=== PATIENT | female | born 1955 | race Caucasian/White ===

== ENCOUNTER 2018-01-19 01:55 | Emergency (ER) | payer MEDICARE, MEDICAID ==
[2018-01-19] MEDS ORDERED: HYDROmorphone 1 MG/ML Syringe IVPUSH ONE (02:33)
[2018-01-19] MEDS ORDERED: Sodium Chloride 0.9% 1,000 ML IV ONE (02:33)
[2018-01-19] MEDS ORDERED: Ondansetron 4 MG/2 ML SDV IV ONE (02:33)
--- NOTE | 2018-01-19 02:39 | EDM.PDOC ---
ED HPI GENERAL MEDICAL PROBLEM - General Chief Complaint: Abdominal Pain Stated Complaint: L SIDE AND BACK PAIN [id number] Time Seen by Provider: 01/19/18 02:21 Source of Information: Reports: Patient, RN, RN Notes Reviewed History Limitations: Reports: No Limitations - History of Present Illness INITIAL COMMENTS - FREE TEXT/NARRATIVE: Pt presents to the ER with c/o left flank/abdominal pain for the past 2 weeks. She states she is currently on Cipro for a UTI. She states she has been taking fluids well, but her appetite has been poor. She states she has been dry heaving for the past few days, but actually vomited twice this past evening. She admits to fever and chills, dizziness, and N/V. She denies diarrhea, chest pains, SOB. Patient states the pain is a 10/10. She states she has had several kidney stones in the past for which she has oxycodone at home for. She states this pain is different than the pain she has with a kidney stone. She states the pain has become so intense today that she is not able to bear it. Pt states frequency, urgency, and burning with urination have resolved since taking the antibiotics. Pt states she was seen in [place] last week and had xrays and CT done. She has signed a release of information for these records to be retrieved from [facility]. Onset: Gradual Location: Reports: Abdomen Quality: Reports: Sharp, Stabbing Severity: Severe Improves with: Reports: None Worsens with: Reports: None Associated Symptoms: Reports: Fever/Chills, Nausea/Vomiting Treatments MATERIALS SCIENTIST: Reports: Other Medication(s) Left Abdomen Pain Score (Numeric/FACES): 10 - Related Data Allergies Allergy/AdvReac Type Severity Reaction Status Date / Time acetaminophen [From Vicodin] Allergy Stomach Verified 01/19/18 02:03 Upset hydrocodone bitartrate Allergy Stomach Verified 01/19/18 02:03 [From Vicodin] Upset morphine Allergy Rash Verified 01/19/18 02:03 NSAIDS (Non-Steroidal Allergy Nausea Verified 01/19/18 02:03 Anti-Inflamma sulfamethoxazole Allergy Dizziness Verified 01/19/18 02:03 [From Bactrim] trimethoprim [From Bactrim] Allergy Dizziness Verified 01/19/18 02:03 Home Meds: Home Meds Albuterol [Ventolin HFA] 2 puff INH Q4H 05/28/15 [History] Fluticasone/Salmeterol [Advair Diskus 250-50] 1 puff INH BID 05/28/15 [History] Hydrochlorothiazide 1 tab PO DAILY 05/28/15 [History] Past Medical History HEENT History: Reports: Impaired Vision Cardiovascular History: Reports: High Cholesterol, Hypertension Respiratory History: Reports: COPD Genitourinary History: Reports: Renal Calculus DISABILITY SPECIALIST History: Reports: None Other Musculoskeletal History: degenerative joint disease Neurological History: Reports: None Psychiatric History: Reports: None Endocrine/Metabolic History: Reports: Hypothyroidism Hematologic History: Reports: None Immunologic History: Reports: None Oncologic (Cancer) History: Reports: None - Past Surgical History Other Cardiovascular Surgeries/Procedures: cardiac cath GI Surgical History: Reports: Appendectomy, Cholecystectomy Female Surgical History: Reports: Hysterectomy, Tubal Ligation Other Musculoskeletal Surgeries/Procedures:: R) knee surg, carpal tunnel, neck surg Social & Family History - Tobacco Use Smoking Status *Q: Never Smoker Second Hand Smoke Exposure: No - Caffeine Use Caffeine Use: Reports: Coffee, Soda - Recreational Drug Use Recreational Drug Use: No ED ROS GENERAL - Review of Systems Review Of Systems: ROS reveals no pertinent complaints other than HPI. ED EXAM, RENAL/ - Physical Exam Exam: See Below Exam Limited By: No Limitations General Appearance: Alert, WD/WN, Moderate Distress Eye Exam: Bilateral Eye: EOMI, Normal Inspection, PERRL Ears: Normal External Exam, Hearing Grossly Normal Nose: Normal Inspection Throat/Mouth: Normal Inspection, Normal Voice, No Airway Compromise Head: Atraumatic, Normocephalic Neck: Normal Inspection, Supple, Non-Tender, Full Range of Motion Respiratory/Chest: No Respiratory Distress, Lungs Clear, Normal Breath Sounds, No Accessory Muscle Use, Chest Non-Tender Cardiovascular: Normal Peripheral Pulses, Regular Rate, Rhythm, No Edema, No Gallop, No JVD, No Murmur, No Rub GI/Abdominal: Normal Bowel Sounds, Soft, No Abnormal Bruit, No Mass, Tender (Female) Exam: Deferred Rectal (Female) Exam: Deferred Back Exam: Normal Inspection, CVA Tenderness (L), Decreased Range of Motion Extremities: Normal Inspection, Normal Range of Motion, Non-Tender, No Pedal Edema, Normal Capillary Refill Neurological: Alert, Oriented, CN II-XII Intact, Normal Cognition, Normal Gait, Normal Reflexes, No Motor/Sensory Deficits Psychiatric: Normal Affect, Normal Mood Skin Exam: Warm, Dry, Intact, Normal Color, No Rash Lymphatic: No Adenopathy Course - Vital Signs Last Recorded V/S: Last Vital Signs Temp 97 F 01/19/18 01:58 Pulse 63 01/19/18 01:58 Resp 18 01/19/18 01:58 BP 172/86 H 01/19/18 01:58 Pulse Ox 97 01/19/18 01:58 - Orders/Labs/Meds Orders: Active Orders 24 hr Category Date Time Status Sodium Chloride 0.9% [Normal Saline] 1,000 ml Med 01/19/18 02:33 Active IV .BOLUS Medication Orders Sodium Chloride (Normal Saline) 1,000 mls @ 999 mls/hr IV .BOLUS ONE Stop: 01/19/18 03:33 Last Admin: 01/19/18 02:38 Dose: 999 mls/hr Labs: Laboratory Tests 01/19/18 01/19/18 01/19/18 Range/Units 02:15 02:15 02:30 WBC 13.4 H (5.0-10.0) 10^3/uL RBC 5.08 (4.2-5.4) 10^6/uL Hgb 14.9 (12.0-16.0) g/dL Hct 41.9 (37.0-47.0) % MCV 82.5 (80-100) fL MCH 29.3 (27.0-34.0) pg MCHC 35.6 H (33.0-35.0) g/dL Plt Count 245 (150-450) 10^3/uL Neut % (Auto) 69.9 (42.2-75.2) % Lymph % (Auto) 20.5 (20.5-50.1) % [place] % (Auto) 6.6 (2-8) % Eos % (Auto) 2.5 (1.0-3.0) % Baso % (Auto) 0.5 (0.0-1.0) % Sodium 134 L (135-145) mmol/L Potassium 3.9 (3.6-5.0) mmol/L Chloride 101 (101-111) mmol/L Carbon Dioxide 24.0 (21.0-31.0) mmol/L Anion Gap 12.9 BUN 14 (7-18) mg/dL Creatinine 1.1 (0.6-1.3) mg/dL Est Cr Clr Drug Dosing 45.20 mL/min Estimated GFR (MDRD) 50 BUN/Creatinine Ratio 12.72 Glucose 162 H (74-105) mg/dL Calcium 9.4 (8.4-10.2) mg/dl Total Bilirubin 0.9 (0.2-1.0) mg/dL AST 37 (10-42) IU/L ALT 30 (10-60) IU/L Alkaline Phosphatase 81 (42-121) IU/L Total Protein 7.8 (6.7-8.2) g/dl Albumin 4.3 (3.2-5.5) g/dl Globulin 3.5 Albumin/Globulin Ratio 1.23 Urine Color Yellow (YELLOW) Urine Appearance Turbid (CLEAR) Urine pH 6.5 (5.0-9.0) Ur Specific [place] 1.020 (1.005-1.030) Urine Protein 100 H (NEGATIVE) Urine Glucose (UA) Negative (NEGATIVE) Urine Ketones Negative (NEGATIVE) Urine Occult Blood Small H (NEGATIVE) Urine Nitrite Negative (NEGATIVE) Urine Bilirubin Negative (NEGATIVE) Urine Urobilinogen 0.2 (0.2-1.0) mg/dL Ur Leukocyte Esterase Negative (NEGATIVE) Urine RBC 0-5 /HPF Urine WBC 0-5 (0-5/HPF) /HPF Ur Epithelial Cells Many H /HPF Urine Bacteria Moderate H (0-FEW/HPF) /HPF Urine Mucus Moderate H /LPF Meds: Medications Generic Name Dose Route Start Last Admin Trade Name Roberto PRN Reason Stop Dose Admin Sodium Chloride 1,000 mls @ 999 mls/hr 01/19/18 02:33 01/19/18 02:38 Normal Saline IV 01/19/18 03:33 999 mls/hr .BOLUS ONE Administration Discontinued Medications Generic Name Dose Route Start Last Admin Trade Name Roberto PRN Reason Stop Dose Admin Hydromorphone HCl 1 mg 01/19/18 02:33 01/19/18 02:40 Dilaudid IVPUSH 01/19/18 02:34 1 mg ONETIME ONE Administration Ondansetron HCl 4 mg 01/19/18 02:33 01/19/18 02:39 Zofran IV 01/19/18 02:34 4 mg ONETIME ONE Administration - Re-Assessments/Exams Free Text/Narrative Re-Assessment/Exam: 01/19/18 03:18 Pt states the pain medications and fluids have "taken the edge off the pain". She states she can go home and rest. Pt was advised to call Urology at [facility] in [place] as soon as possible in the morning to be seen. Pt agrees and states understanding. 01/19/18 03:20 CT of abdomen/pelvis with contrast that was done at [facility] on 01/11/18 impression : Bilateral punctate renal calculi Dilated LEFT proximal collecting system and ureter but actually improved over the interval Fatty liver Colonic diverticulosis Old granulomatous disease exposure calcifications of the liver, spleen and LEFT basilar calcified nodule See rad report See also ER report from [facility] on 01/11/18 Departure - Departure Time of Disposition: 03:22 Disposition: Home, Self-Care 01 Condition: Fair Clinical Impression: Flank pain, Kidney stone on left side - Discharge Information Instructions: Renal Colic, [id number], Kidney Stones, [id number], Flank Pain, [id number] Forms: ED Department Discharge Additional Instructions: Follow up with Urology at [facility] in the morning Drink plenty of fluids - My Orders Last 24 Hours: My Active Orders 01/19/18 02:33 Sodium Chloride 0.9% [Normal Saline] 1,000 ml IV .BOLUS - Assessment/Plan Last 24 Hours: My Active Orders 01/19/18 02:33 Sodium Chloride 0.9% [Normal Saline] 1,000 ml IV .BOLUS
[2018-01-19] MEDS ORDERED: Ondansetron 4 MG Tab.DIS PO ONE (03:33)
[2018-01-19 03:46] VITALS: BP 182/67
== END 2018-01-19 03:43 | disposition home or self-care (01) ==
LOC: DL.ED 01:55
DX: N20.0 Calculus of kidney (principal); E78.00 Pure hypercholesterolemia, unspecified; I10 Essential (primary) hypertension; E03.9 Hypothyroidism, unspecified; Z88.1 Allergy status to other antibiotic agents; Z88.5 Allergy status to narcotic agent; Z88.2 Allergy status to sulfonamides; Z79.899 Other long term (current) drug therapy
CPT/HCPCS: 36415; 80053; 81001; 85025; 96361; 96374; 96375; 99284; A9270; J1170; J2405; J7030

== ENCOUNTER 2018-03-10 04:53 | Day surgery (SDC) | payer MEDICARE, MEDICAID ==
[2018-03-10] MEDS ORDERED: Midazolam 1 MG/ML 2 ML SDV IV ONE ×4 (04:54→06:42)
[2018-03-10] MEDS ORDERED: fentaNYL 100 MCG/2 ML SDV IV ONE ×3 (04:54→06:34)
[2018-03-10] MEDS ORDERED: Dextrose 5%-0.45% NaCl 1,000 ML IV SCH (06:00)
[2018-03-10] MEDS ORDERED: Sodium Chloride 0.9% 10 ML Syringe FLUSH PRN (06:00)
[2018-03-10] MEDS ORDERED: Midazolam 1 MG/ML 2 ML SDV ONE (06:11)
[2018-03-10] MEDS ORDERED: fentaNYL 100 MCG/2 ML SDV ONE (06:11)
--- NOTE | 2018-03-10 07:14 | OR ---
DATE: 03/10/2018 PROCEDURE: Total colonoscopy. INSTRUMENT USED: [id number]-H180AL Olympus video colonoscope. PREMEDICATIONS: Fentanyl 100 mcg intravenous, Versed 2.5 mg intravenous. Nasal O2 cannula. The procedure was done under pulse oximetry, BP recording, and conveyor monitor. INDICATION: The patient with increasing constipation and persistent left-sided lower abdominal pain, unexplained and not responsive to medical measures. Colonoscopic examination is done for detection of any polypoid lesions and removal, endoscopic hemostasis therapy if needed. DESCRIPTION OF PROCEDURE: Initial rectal exam was unremarkable. Rigid anoscopy showed small internal hemorrhoids without bleeding from them. The colonoscope was passed with ease. Few scattered diverticula were noted in the distal left colon along with some deformity. The scope was passed with ease up to the ileocecal area. Photographs were taken of the normal-appearing cecum identified by landmarks of appendiceal orifice and double-bulged ileocecal folds. No bleeding was noted from any of the visualized areas at the commencement of the examination. No stricture. No vascular ectasia. No large isolated ulcerations seen. No evidence of diffuse inflammatory bowel disease in the form of friability, contact bleeding, or ulcerations. No polyp or tumor mass identified. Probing the proximal sides of folds and flexures, using adequate distention and clearing of the stool material, withdrawal of the scope was made, cecum to rectum time over 6 minutes. No bleeding was noted from any of the visualized areas at the completion of examination. IMPRESSION: 1. Internal hemorrhoids. 2. Diverticulosis. The patient tolerated the procedure well. [facility] /[id number]
--- NOTE | 2018-03-10 08:53 | LETTER ---
03/10/2018 Anca Andrade NP [facility] [address] [place] [address] RE: JEROMEJUSTINA GHAZAL : 1955 Dear Ms. Andrade: Ms. Justina Canales had colonoscopic examination done this morning and she tolerated the procedure well. I herewith send a copy of the endoscopy note and photographs for your review. Thank you. Sincerely, [facility] /[id number]
[2018-03-10 10:31] VITALS: BP 171/75
== END 2018-03-10 08:54 | disposition home or self-care (01) ==
LOC: DL.ENDO 04:53
PROVIDERS: ATTEND Internal Medicine Gastroenterology
DX: K57.30 Diverticulosis of large intestine without perforation or abscess without bleeding (principal); K64.8 Other hemorrhoids; I10 Essential (primary) hypertension; N20.0 Calculus of kidney; E78.5 Hyperlipidemia, unspecified; E66.09 Other obesity due to excess calories; Z88.2 Allergy status to sulfonamides; Z88.5 Allergy status to narcotic agent; Z88.6 Allergy status to analgesic agent; Z90.49 Acquired absence of other specified parts of digestive tract; Z90.712 Acquired absence of cervix with remaining uterus; Z98.51 Tubal ligation status; Z98.890 Other specified postprocedural states; Z87.440 Personal history of urinary (tract) infections
CPT/HCPCS: 45378; J2250; J3010; J7042

== ENCOUNTER 2018-03-11 14:19 | Emergency (ER) | payer MEDICARE, MEDICAID ==
[2018-03-11 14:49] VITALS: BP 162/88
--- NOTE | 2018-03-11 15:05 | EDM.PDOC ---
ED HPI GENERAL MEDICAL PROBLEM - General Chief Complaint: Abdominal Pain Stated Complaint: LEFT SIDE PAIN Time Seen by Provider: 03/11/18 14:58 Source of Information: Reports: Patient History Limitations: Reports: No Limitations - History of Present Illness INITIAL COMMENTS - FREE TEXT/NARRATIVE: Cortney present to the ED one day post-colonoscopy with 2 month history of flank pain. Colonoscopy was without biopsy, positive for mild diverticulitis. Patient had no complications with anesthesia, passing gas and had a bowel movement this morning. The flank pain is sharp and originates in her left costovertebral angle and wraps around to her left upper abdomen. The patient was woken by the pain at 0300 this morning. Pain described as " worse than ever, and didn't improve with movement like it usually does." Patient states this pain is different in location than previous kidney stones. Patient has history of kidney stones, with a stent removed from her left ureter one month ago. Allergic to morphine, vicoden, NSAIDs, and sulfa antibiotics. ROS negative for fever, cough, hematuria, and hematochezia. ROS positive for nausea. Onset: Today Onset Date: 03/11/18 Onset Time: 03:00 Duration: Hour(s): Location: Reports: Abdomen, Back Quality: Reports: Sharp Severity: Severe Improves with: Reports: None Worsens with: Reports: None Associated Symptoms: Reports: Nausea/Vomiting. Denies: Chest Pain, Cough, Shortness of Breath Left Lower Flank Pain Score (Numeric/FACES): 9 - Related Data Allergies Allergy/AdvReac Type Severity Reaction Status Date / Time morphine Allergy Rash Verified 03/11/18 14:27 sulfamethoxazole Allergy Dizziness Verified 03/11/18 14:27 [From Bactrim] trimethoprim [From Bactrim] Allergy Dizziness Verified 03/11/18 14:27 hydrocodone bitartrate AdvReac Stomach Verified 03/11/18 14:27 [From Vicodin] Upset NSAIDS (Non-Steroidal AdvReac Nausea Verified 03/11/18 14:27 Anti-Inflamma Home Meds: Home Meds Albuterol [Ventolin HFA] 2 puff INH Q4H PRN 05/28/15 [History] Fluticasone/Salmeterol [Advair Diskus 250-50] 1 puff INH BID 05/28/15 [History] Hydrochlorothiazide 25 mg PO DAILY PRN 05/28/15 [History] Acetaminophen 1,000 mg PO Q6H PRN 03/09/18 [History] Cholecalciferol (Vitamin D3) [Vitamin D3] 2,000 units PO DAILY 03/09/18 [History ] Ipratropium/Albuterol Sulfate [IJD: DuoNeb 3.0-0.5 MG/3 ML] 1 vial INH Q4H PRN 03/09/18 [History] Levothyroxine 225 mcg PO DAILY 03/09/18 [History] Ondansetron [Zofran ODT] 4 mg PO Q8H PRN 03/09/18 [History] oxyCODONE 5 mg PO Q6H PRN 03/09/18 [History] Past Medical History HEENT History: Reports: Impaired Vision, Other (See Below) Other HEENT History: UPPER DENTURE, BOTTOM PARTIAL DENTURE Cardiovascular History: Reports: High Cholesterol, Hypertension Respiratory History: Reports: COPD, Intubation, Previous, Sleep Apnea, SOB Gastrointestinal History: Reports: Diverticulosis Genitourinary History: Reports: Chronic Renal Insuffiency, Hydronephrosis, Renal Calculus, UTI, Recurrent 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 BILAT CARPAL TUNNEL SYNDROME Neurological History: Reports: Concussion Psychiatric History: Reports: Mood Swings Endocrine/Metabolic History: Reports: Hypothyroidism, Obesity/BMI 30+, Osteopenia, Vitamin D Deficiency Hematologic History: Reports: None Immunologic History: Reports: None Oncologic (Cancer) History: Reports: None Dermatologic History: Reports: None - Infectious Disease History Infectious Disease History: Reports: Chicken Pox, Measles, Mumps - Past Surgical History Cardiovascular Surgical History: Reports: Other (See Below) Other Cardiovascular Surgeries/Procedures: cardiac cath - PATIENT DENIES CARDIAC CATH 03/09/18. ELECTROCARDIOGRAM Respiratory Surgical History: Reports: None GI Surgical History: Reports: Appendectomy, Cholecystectomy, Colonoscopy, Hernia , Inguinal, Other (See Below) Other GI Surgeries/Procedures: DENIES INGUINAL HERNIA REPAIR 03/09/18 Female Surgical History: Reports: Hysterectomy, Lithotripsy/ESWL, Tubal Ligation, Ureteral Stent Endocrine Surgical History: Reports: None Neurological Surgical History: Reports: C-Spine Musculoskeletal Surgical History: Reports: Arthroscopic Knee, Carpal Tunnel, Joint Replacement Other Musculoskeletal Surgeries/Procedures:: TOTAL R) knee surg, RIGHT & LEFT ( DENIES LEFT CARPAL TUNNEL RELEASE 03/09/18)carpal tunnel, neck surg Oncologic Surgical History: Reports: None Dermatological Surgical History: Reports: None Social & Family History - Tobacco Use Smoking Status *Q: Never Smoker Used Tobacco, but Quit: No Second Hand Smoke Exposure: No - Caffeine Use Caffeine Use: Reports: Coffee Other Caffeine Use: 1 CUP DAILY - Recreational Drug Use Recreational Drug Use: No Drug Use in Last 12 Months: No ED ROS GENERAL - Review of Systems Review Of Systems: See Below Constitutional: Denies: Fever, Weakness HEENT: Reports: No Symptoms Respiratory: Reports: Shortness of Breath (Chronic, prior to flank pain ). Denies: Cough Cardiovascular: Denies: Chest Pain, Lightheadedness, Palpitations GI/Abdominal: Reports: Abdominal Pain, Flatus. Denies: Bloody Stool, Diarrhea, Hematochezia, Vomiting : Reports: Flank Pain, Pain. Denies: Hematuria Musculoskeletal: Reports: No Symptoms Skin: Reports: No Symptoms ED EXAM, GI/ABD - Physical Exam Exam: See Below Text/Narrative:: Body habitus limiting abdominal examination General Appearance: Alert, Moderate Distress, Obese Eyes: Bilateral: Normal Appearance, EOMI Ears: Normal External Exam Nose: Normal Inspection Throat/Mouth: Normal Inspection, Normal Voice, No Airway Compromise Head: Atraumatic, Normocephalic Respiratory/Chest: No Respiratory Distress, Lungs Clear, Normal Breath Sounds, No Accessory Muscle Use Cardiovascular: Normal Peripheral Pulses, Regular Rate, Rhythm, No Murmur GI/Abdominal Exam: Soft, Distended, Other (Patient visibly uncomfortable with palpation of upper left quadrant. Tympanic to percussion ) Back Exam: CVA Tenderness (L) (palpation, no percussion ) Extremities: Normal Inspection, Normal Capillary Refill Neurological: Alert, Oriented, CN II-XII Intact, Normal Cognition, Normal Gait Psychiatric: Normal Affect, Normal Mood Skin Exam: Warm, Dry Course - Vital Signs Last Recorded V/S: Last Vital Signs Temp 36.6 C 03/11/18 14:41 Pulse 67 03/11/18 14:41 Resp 20 03/11/18 14:41 BP 162/88 H 03/11/18 14:41 Pulse Ox 97 03/11/18 14:41 - Orders/Labs/Meds Orders: Active Orders 24 hr Category Date Time Status Ready for Discharge [RC] PER UNIT ROUTINE Care 03/11/18 16:07 Active UA W/MICROSCOPIC [URIN] Stat Lab 03/11/18 14:54 Ordered Labs: Laboratory Tests 03/11/18 03/11/18 03/11/18 Range/Units 14:54 15:04 15:04 WBC 11.9 H (5.0-10.0) 10^3/uL RBC 4.63 (4.2-5.4) 10^6/uL Hgb 13.4 D (12.0-16.0) g/dL Hct 39.4 (37.0-47.0) % MCV 85.1 (80-100) fL MCH 28.9 (27.0-34.0) pg MCHC 34.0 (33.0-35.0) g/dL Plt Count 261 (150-450) 10^3/uL Neut % (Auto) 59.7 (42.2-75.2) % Lymph % (Auto) 27.4 (20.5-50.1) % [place] % (Auto) 8.3 H (2-8) % Eos % (Auto) 4.0 H (1.0-3.0) % Baso % (Auto) 0.6 (0.0-1.0) % Sodium 138 (135-145) mmol/L Potassium 3.3 L (3.6-5.0) mmol/L Chloride 101 (101-111) mmol/L Carbon Dioxide 28.0 (21.0-31.0) mmol/L Anion Gap 12.3 BUN 17 (7-18) mg/dL Creatinine 1.4 H (0.6-1.3) mg/dL Est Cr Clr Drug Dosing TNP Estimated GFR (MDRD) 38 BUN/Creatinine Ratio 12.14 Glucose 124 H (74-105) mg/dL Calcium 9.6 (8.4-10.2) mg/dl Total Bilirubin 0.8 (0.2-1.0) mg/dL AST 28 (10-42) IU/L ALT 26 (10-60) IU/L Alkaline Phosphatase 75 (42-121) IU/L Total Protein 7.7 (6.7-8.2) g/dl Albumin 4.0 (3.2-5.5) g/dl Globulin 3.7 Albumin/Globulin Ratio 1.08 Urine Color Yellow (YELLOW) Urine Appearance Clear (CLEAR) Urine pH 6.0 (5.0-9.0) Ur Specific [place] 1.025 (1.005-1.030) Urine Protein 100 H (NEGATIVE) Urine Glucose (UA) Negative (NEGATIVE) Urine Ketones Trace H (NEGATIVE) Urine Occult Blood Trace-lysed H (NEGATIVE) Urine Nitrite Negative (NEGATIVE) Urine Bilirubin Negative (NEGATIVE) Urine Urobilinogen 0.2 (0.2-1.0) mg/dL Ur Leukocyte Esterase Negative (NEGATIVE) Urine RBC 5-10 H /HPF Urine WBC 10-20 H (0-5/HPF) /HPF Ur Epithelial Cells Many H /HPF Calcium Oxalate Crystal Moderate H /HPF Urine Bacteria Few (0-FEW/HPF) /HPF Urine Mucus Few H /LPF - Radiology Interpretation Free Text/Narrative:: See Radiology Report: Isolated tiny, incompletely obstructing distal left uretolith. CT Results Date: 03/11/18 Departure - Departure Time of Disposition: 16:01 Disposition: Home, Self-Care 01 Condition: Good Clinical Impression: Kidney stone on left side - Discharge Information Instructions: Kidney Stones, [id number] Forms: ED Department Discharge Additional Instructions: Flomax 0.4 mg daily until kidney stone passes. 10 day supply prescribed Oxycodone 5mg/325mg every 4 hours as needed for pain. Follow up with your Urologist See your primary care provider if you develop blood in urine or fever and chills. - Problem List & Annotations (1) Kidney stone on left side SNOMED Code(s): 74929089 Code(s): N20.0 - CALCULUS OF KIDNEY Status: Acute (2) Flank pain SNOMED Code(s): 192153859 Code(s): R10.9 - UNSPECIFIED ABDOMINAL PAIN Status: Acute - Problem List Review Problem List Initiated/Reviewed/Updated: Yes
[2018-03-11 15:31] LABS: CHLORIDE,CL 101 mmol/L (101-111); SODIUM,NA 138 mmol/L (135-145)
--- NOTE | 2018-03-11 15:51 | CT ---
Clinical history: 62-year-old [place] ([place]) with history of "kidney stones" who had left urete ral stent removed one month ago and yesterday had a colonoscopy procedure ("diverticulosis"). Patient in emergency department now with severe left flank pain and hematuria. Scan technique: Volume acquisition of data emergency unenhanced CT scan abdomen and pelvis obtained w hile the patient was lying supine on the Siemens multi slice scanner [place], [place]. All data archived in the PACS system for storage, reformatting axial/sagittal/terry l planes and study. Interpretation: 1. Surgical clips gallbladder fossa right upper quadrant. Scattered tiny punctate calcifications in t he liver and spleen. No intrahepatic mass lesion or abnormal dilatation of intra/extrahepatic biliary ducts. 2. Multiple punctate calcifications calyces all poles of the left kidney (isolated calcification uppe r pole calyx right kidney). 3.*Isolated tiny (1 mm) intraluminal calcification distal left ureter with subtle dilatation of the p roximal ipsilateral ureter and renal pelvis. 4. Diverticula scattered in the colon without signs of pericolonic inflammatory "dirty" peritoneal fa t, abscess or bowel perforation. 5. No pelvic or abdominal mass lesion, retroperitoneal lymphadenopathy, signs of mechanical bowel obs truction, ascites or free air. 6. Normal caliber aortoiliac vessels. No aneurysm or dissection. Old compression fracture T12 vertebr a. L5-S1 disc disease. 7. Normal cardiac silhouette. Lung bases clear. Cholecystectomy. Stomach, pancreas and adrenal glands unremarkable. CONCLUSION: Isolated tiny, incompletely obstructing, distal left ureterolith.
== END 2018-03-11 16:29 | disposition home or self-care (01) ==
LOC: DL.ED 14:19
DX: N20.2 Calculus of kidney with calculus of ureter (principal); I12.9 Hypertensive chronic kidney disease with stage 1 through stage 4 chronic kidney disease, or unspecified chronic kidney disease; N18.9 Chronic kidney disease, unspecified; E03.9 Hypothyroidism, unspecified; E66.9 Obesity, unspecified; Z88.5 Allergy status to narcotic agent; Z88.8 Allergy status to other drugs, medicaments and biological substances; Z88.2 Allergy status to sulfonamides; Z79.899 Other long term (current) drug therapy
CPT/HCPCS: 36415; 74176; 80053; 81001; 85025; 99284

== ENCOUNTER 2018-03-27 13:40 | Emergency (ER) | payer MEDICARE, MEDICAID ==
[2018-03-27 13:57] VITALS: BP 164/84
--- NOTE | 2018-03-27 13:58 | EDM.PDOC ---
ED HPI GENERAL MEDICAL PROBLEM - General Chief Complaint: Lower Extremity Injury/Pain Stated Complaint: LEG PAIN [id number] Time Seen by Provider: 03/27/18 13:57 Source of Information: Reports: Patient, RN, RN Notes Reviewed History Limitations: Reports: No Limitations - History of Present Illness INITIAL COMMENTS - FREE TEXT/NARRATIVE: Pt presents to the ER with c/o pain and bruising that suddenly occurred this afternoon. She states she was out feeding her baby calf in her house slippers. When she returned to the house, the top of her left foot had a bruise Onset: Today, Sudden Location: Reports: Lower Extremity, Left Left Feet Pain Score (Numeric/FACES): 6 - Related Data Allergies Allergy/AdvReac Type Severity Reaction Status Date / Time morphine Allergy Rash Verified 03/27/18 13:56 sulfamethoxazole Allergy Dizziness Verified 03/27/18 13:56 [From Bactrim] trimethoprim [From Bactrim] Allergy Dizziness Verified 03/27/18 13:56 hydrocodone bitartrate AdvReac Stomach Verified 03/27/18 13:56 [From Vicodin] Upset NSAIDS (Non-Steroidal AdvReac Nausea Verified 03/27/18 13:56 Anti-Inflamma Home Meds: Home Meds Albuterol [Ventolin HFA] 2 puff INH Q4H PRN 05/28/15 [History] Fluticasone/Salmeterol [Advair Diskus 250-50] 1 puff INH BID 05/28/15 [History] Hydrochlorothiazide 25 mg PO DAILY PRN 05/28/15 [History] Acetaminophen 1,000 mg PO Q6H PRN 03/09/18 [History] Cholecalciferol (Vitamin D3) [Vitamin D3] 2,000 units PO DAILY 03/09/18 [History ] Ipratropium/Albuterol Sulfate [IJD: DuoNeb 3.0-0.5 MG/3 ML] 1 vial INH Q4H PRN 03/09/18 [History] Levothyroxine 225 mcg PO DAILY 03/09/18 [History] Ondansetron [Zofran ODT] 4 mg PO Q8H PRN 03/09/18 [History] oxyCODONE 5 mg PO Q6H PRN 03/09/18 [History] Past Medical History HEENT History: Reports: Impaired Vision, Other (See Below) Other HEENT History: UPPER DENTURE, BOTTOM PARTIAL DENTURE Cardiovascular History: Reports: High Cholesterol, Hypertension Respiratory History: Reports: COPD, Intubation, Previous, Sleep Apnea, SOB Gastrointestinal History: Reports: Diverticulosis Genitourinary History: Reports: Chronic Renal Insuffiency, Hydronephrosis, Renal Calculus, UTI, 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 BILAT CARPAL TUNNEL SYNDROME Neurological History: Reports: Concussion Psychiatric History: Reports: Mood Swings Endocrine/Metabolic History: Reports: Hypothyroidism, Obesity/BMI 30+, Osteopenia, Vitamin D Deficiency Hematologic History: Reports: None Immunologic History: Reports: None Oncologic (Cancer) History: Reports: None Dermatologic History: Reports: None - Infectious Disease History Infectious Disease History: Reports: Chicken Pox, Measles, Mumps - Past Surgical History Cardiovascular Surgical History: Reports: Other (See Below) Other Cardiovascular Surgeries/Procedures: cardiac cath - PATIENT DENIES CARDIAC CATH 03/09/18. ELECTROCARDIOGRAM Respiratory Surgical History: Reports: None GI Surgical History: Reports: Appendectomy, Cholecystectomy, Colonoscopy, Hernia , Inguinal, Other (See Below) Other GI Surgeries/Procedures: DENIES INGUINAL HERNIA REPAIR 03/09/18 Female Surgical History: Reports: Hysterectomy, Lithotripsy/ESWL, Tubal Ligation, Ureteral Stent Endocrine Surgical History: Reports: None Neurological Surgical History: Reports: C-Spine Musculoskeletal Surgical History: Reports: Arthroscopic Knee, Carpal Tunnel, Joint Replacement Other Musculoskeletal Surgeries/Procedures:: TOTAL R) knee surg, RIGHT & LEFT ( DENIES LEFT CARPAL TUNNEL RELEASE 03/09/18)carpal tunnel, neck surg Oncologic Surgical History: Reports: None Dermatological Surgical History: Reports: None Social & Family History - Tobacco Use Smoking Status *Q: Never Smoker Used Tobacco, but Quit: No Second Hand Smoke Exposure: No - Caffeine Use Caffeine Use: Reports: Coffee Other Caffeine Use: 1 CUP DAILY - Recreational Drug Use Recreational Drug Use: No Drug Use in Last 12 Months: No Review of Systems - Review of Systems Review Of Systems: ROS reveals no pertinent complaints other than HPI. ED EXAM, GENERAL - Physical Exam Exam: See Below Exam Limited By: No Limitations General Appearance: Alert, WD/WN, Mild Distress Eye Exam: Bilateral Eye: EOMI, Normal Inspection Ears: Normal External Exam, Hearing Grossly Normal Nose: Normal Inspection Throat/Mouth: Normal Inspection, Normal Voice, No Airway Compromise Head: Atraumatic, Normocephalic Neck: Normal Inspection Respiratory/Chest: No Respiratory Distress, Lungs Clear, Normal Breath Sounds, No Accessory Muscle Use Cardiovascular: Normal Peripheral Pulses, Regular Rate, Rhythm, No Gallop, No JVD, No Murmur, No Rub Peripheral Pulses: 2+: Radial (L), Radial (R), Dorsalis Pedis (L), Dorsalis Pedis (R) GI/Abdominal: Normal Bowel Sounds, Soft, Non-Tender (Female) Exam: Deferred Rectal (Female) Exam: Deferred Back Exam: Normal Inspection, Full Range of Motion Extremities: Pedal Edema (+1, [id number] eccymosis at the base of the 4th toe on the left foot) Neurological: Alert, Oriented, Normal Cognition, Normal Gait, Normal Reflexes, No Motor/Sensory Deficits Psychiatric: Normal Affect, Normal Mood Skin Exam: Warm, Dry, Intact, Normal Color, No Rash, Ecchymosis (left foot) Lymphatic: No Adenopathy Course - Vital Signs Last Recorded V/S: Last Vital Signs Temp 96.2 F 03/27/18 13:51 Pulse 73 03/27/18 13:51 Resp 20 03/27/18 13:51 BP 164/84 H 03/27/18 13:51 Pulse Ox 97 03/27/18 13:51 - Radiology Interpretation Free Text/Narrative:: Left foot xray: Normal left foot x-rays Incidental note is made of a prominent heel spur See rad report Departure - Departure Time of Disposition: 14:30 Disposition: Home, Self-Care 01 Condition: Fair Clinical Impression: Rupture of blood vessel Contusion Qualifiers: Encounter type: initial encounter Contusion area: foot Laterality: left Qualified Code(s): S90.32XA - Contusion of left foot, initial encounter - Discharge Information Instructions: Contusion, [id number] Forms: ED Department Discharge Additional Instructions: May ice and elevate as tolerated Follow up with your primary care facility as needed May use Tylenol as directed for pain.
== END 2018-03-27 14:48 | disposition home or self-care (01) ==
LOC: DL.ED 13:40
DX: S90.32XA Contusion of left foot, initial encounter (principal); I12.9 Hypertensive chronic kidney disease with stage 1 through stage 4 chronic kidney disease, or unspecified chronic kidney disease; E78.00 Pure hypercholesterolemia, unspecified; N18.9 Chronic kidney disease, unspecified; E03.9 Hypothyroidism, unspecified; Z88.5 Allergy status to narcotic agent; Z88.1 Allergy status to other antibiotic agents; Z88.8 Allergy status to other drugs, medicaments and biological substances; Z79.899 Other long term (current) drug therapy; X58.XXXA Exposure to other specified factors, initial encounter
CPT/HCPCS: 73630-LT; 99282; 99283

== ENCOUNTER 2019-01-22 10:29 | Emergency (ER) | payer MEDICARE, MEDICAID ==
[2019-01-22 10:40] VITALS: BP 172/97
--- NOTE | 2019-01-22 11:03 | EDM.PDOC ---
ED HPI GENERAL MEDICAL PROBLEM - General Chief Complaint: Back Pain or Injury Stated Complaint: BACK PAIN GOING TO BACK AND LEFT SIDE Time Seen by Provider: 01/22/19 10:45 Source of Information: Reports: Patient History Limitations: Reports: No Limitations - History of Present Illness INITIAL COMMENTS - FREE TEXT/NARRATIVE: This 63 yo female patient reports to the ED with left side pain that seems to be going up into her left shoulder. The patient reports she has been having left side pain for the past 4 months, but in the past 4 days her pain has gotten worse. The patient reports she has a kidney stone in the left side and has been seen by Dr. Thomas for the kidney stone. The patient reports she has been on Toradol and Flomax in the past. The patient reports she does take Flomax at nights. The patient reports she took 2 Aleve last night with some relief. The patient reports her pain gets worse when she lays on her left side or back. The patient denies any recent trauma, falls or injuries. The patient denies lifting or moving anything heavy. The patient has not been into her primary care facility for evaluation or treatment. The patient also reports she has pain "shooting" down her left leg. The patient also reports she has not been having daily bowel movements, but did have one this morning that was normal. 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 (Took Aleve last night despite an allergy to NSAIDS) Left Pain Score (Numeric/FACES): 9 - Related Data Allergies Allergy/AdvReac Type Severity Reaction Status Date / Time morphine Allergy Rash Verified 01/22/19 10:40 sulfamethoxazole Allergy Dizziness Verified 01/22/19 10:40 [From Bactrim] trimethoprim [From Bactrim] Allergy Dizziness Verified 01/22/19 10:40 hydrocodone bitartrate AdvReac Stomach Verified 01/22/19 10:40 [From Vicodin] Upset NSAIDS (Non-Steroidal AdvReac Nausea Verified 01/22/19 10:40 Anti-Inflamma Home Meds: Home Meds Albuterol [Ventolin HFA] 2 puff INH Q4H PRN 05/28/15 [History] Fluticasone/Salmeterol [Advair Diskus 250-50] 1 puff INH BID 05/28/15 [History] hydroCHLOROthiazide [Hydrochlorothiazide] 25 mg PO DAILY PRN 05/28/15 [History] Acetaminophen 1,000 mg PO Q6H PRN 03/09/18 [History] Cholecalciferol (Vitamin D3) [Vitamin D3] 2,000 units PO DAILY 03/09/18 [History ] Ipratropium/Albuterol Sulfate [IJD: DuoNeb 3.0-0.5 MG/3 ML] 1 vial INH Q4H PRN 03/09/18 [History] Levothyroxine 225 mcg PO DAILY 03/09/18 [History] Ondansetron [Zofran ODT] 4 mg PO Q8H PRN 03/09/18 [History] oxyCODONE 5 mg PO Q6H PRN 03/09/18 [History] Past Medical History HEENT History: Reports: Impaired Vision, Other (See Below) Other HEENT History: UPPER DENTURE, BOTTOM PARTIAL DENTURE Cardiovascular History: Reports: High Cholesterol, Hypertension Respiratory History: Reports: COPD, Intubation, Previous, Sleep Apnea, SOB Gastrointestinal History: Reports: Diverticulosis Genitourinary History: Reports: Chronic Renal Insuffiency, Hydronephrosis, Renal Calculus, UTI, 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 BILAT CARPAL TUNNEL SYNDROME Neurological History: Reports: Concussion Psychiatric History: Reports: Mood Swings Endocrine/Metabolic History: Reports: Hypothyroidism, Obesity/BMI 30+, Osteopenia, Vitamin D Deficiency Hematologic History: Reports: None Immunologic History: Reports: None Oncologic (Cancer) History: Reports: None Dermatologic History: Reports: None - Infectious Disease History Infectious Disease History: Reports: Chicken Pox, Measles, Mumps - Past Surgical History Cardiovascular Surgical History: Reports: Other (See Below) Other Cardiovascular Surgeries/Procedures: cardiac cath - PATIENT DENIES CARDIAC CATH 03/09/18. ELECTROCARDIOGRAM Respiratory Surgical History: Reports: None GI Surgical History: Reports: Appendectomy, Cholecystectomy, Colonoscopy, Hernia , Inguinal, Other (See Below) Other GI Surgeries/Procedures: DENIES INGUINAL HERNIA REPAIR 03/09/18 Female Surgical History: Reports: Hysterectomy, Lithotripsy/ESWL, Tubal Ligation, Ureteral Stent Endocrine Surgical History: Reports: None Neurological Surgical History: Reports: C-Spine Musculoskeletal Surgical History: Reports: Arthroscopic Knee, Carpal Tunnel, Joint Replacement Other Musculoskeletal Surgeries/Procedures:: TOTAL R) knee surg, RIGHT & LEFT ( DENIES LEFT CARPAL TUNNEL RELEASE 03/09/18)carpal tunnel, neck surg Oncologic Surgical History: Reports: None Dermatological Surgical History: Reports: None Social & Family History - Family History Family Medical History: Noncontributory - Tobacco Use Smoking Status *Q: Never Smoker Second Hand Smoke Exposure: No - Caffeine Use Caffeine Use: Reports: Coffee Other Caffeine Use: 1 CUP DAILY - Recreational Drug Use Recreational Drug Use: No ED ROS GENERAL - Review of Systems Review Of Systems: ROS reveals no pertinent complaints other than HPI. ED EXAM,LOWER BACK PAIN/INJURY - Physical Exam Exam: See Below Exam Limited By: No Limitations General Appearance: Alert, WD/WN, Mild Distress, Obese (morbid obesity ) Eye Exam: Bilateral Eye: EOMI, Normal Inspection, PERRL Ears: Normal External Exam, Normal Canal, Hearing Grossly Normal, Normal TMs Nose: Normal Inspection, Normal Mucosa, No Blood Throat/Mouth: Normal Inspection, Normal Lips, Normal Teeth, Normal Gums, Normal Oropharynx, Normal Voice, No Airway Compromise Head: Atraumatic, Normocephalic Neck: Normal Inspection, Supple, Non-Tender, Full Range of Motion Respiratory/Chest: No Respiratory Distress, Lungs Clear, Normal Breath Sounds, No Accessory Muscle Use, Chest Non-Tender Cardiovascular: Normal Peripheral Pulses, Regular Rate, Rhythm, No Edema, No Gallop, No JVD, No Murmur, No Rub GI/Abdominal: Normal Bowel Sounds, Soft, Tender (tenderness to left side of abdomen ), Other (obese) (Female) Exam: Deferred Rectal (Female) Exam: Deferred Back Exam: CVA Tenderness (L) Extremities: Normal Inspection, Normal Range of Motion, Non-Tender, No Pedal Edema, Normal Capillary Refill Neurological: Alert, Normal Mood/Affect, CN II-XII Intact, Oriented x 3 Psychiatric: Depressed Mood, Flat Affect Skin Exam: Warm, Dry, Intact, Normal Color, No Rash Lymphatic: No Adenopathy Course - Vital Signs Last Recorded V/S: Last Vital Signs Temp 36.7 C 01/22/19 10:33 Pulse 67 01/22/19 10:33 Resp 20 01/22/19 10:33 BP 172/97 H 01/22/19 10:33 Pulse Ox 97 01/22/19 10:33 - Orders/Labs/Meds Orders: Active Orders 24 hr Category Date Time Status CULTURE URINE [RM] Urgent Lab 01/22/19 10:32 Received Labs: Laboratory Tests 01/22/19 01/22/19 01/22/19 Range/Units 10:32 10:56 10:56 WBC 12.0 H (5.0-10.0) 10^3/uL RBC 5.06 (4.2-5.4) 10^6/uL Hgb 14.6 (12.0-16.0) g/dL Hct 42.0 (37.0-47.0) % MCV 83.0 (80-100) fL MCH 28.9 (27.0-34.0) pg MCHC 34.8 (33.0-35.0) g/dL Plt Count 266 (150-450) 10^3/uL Neut % (Auto) 64.3 (42.2-75.2) % Lymph % (Auto) 25.6 (20.5-50.1) % Edwards % (Auto) 6.7 (2-8) % Eos % (Auto) 2.9 (1.0-3.0) % Baso % (Auto) 0.5 (0.0-1.0) % Sodium 137 (135-145) mmol/L Potassium 3.6 (3.6-5.0) mmol/L Chloride 103 (101-111) mmol/L Carbon Dioxide 23.0 (21.0-31.0) mmol/L Anion Gap 14.6 BUN 16 (7-18) mg/dL Creatinine 0.8 (0.6-1.3) mg/dL Est Cr Clr Drug Dosing 61.35 mL/min Estimated GFR (MDRD) > 60 BUN/Creatinine Ratio 20.00 Glucose 123 H (74-105) mg/dL Calcium 9.2 (8.4-10.2) mg/dl Total Bilirubin 0.9 (0.2-1.0) mg/dL AST 26 (10-42) IU/L ALT 23 (10-60) IU/L Alkaline Phosphatase 80 (42-121) IU/L Total Protein 7.6 (6.7-8.2) g/dl Albumin 4.0 (3.2-5.5) g/dl Globulin 3.6 Albumin/Globulin Ratio 1.11 Urine Color Yellow (YELLOW) Urine Appearance Cloudy (CLEAR) Urine pH 6.0 (5.0-9.0) Ur Specific [place] 1.025 (1.005-1.030) Urine Protein 100 H (NEGATIVE) Urine Glucose (UA) Negative (NEGATIVE) Urine Ketones Negative (NEGATIVE) Urine Occult Blood Small H (NEGATIVE) Urine Nitrite Positive H (NEGATIVE) Urine Bilirubin Negative (NEGATIVE) Urine Urobilinogen 0.2 (0.2-1.0) mg/dL Ur Leukocyte Esterase Trace H (NEGATIVE) Urine RBC 5-10 H /HPF Urine WBC 50-75 H (0-5/HPF) /HPF Ur Epithelial Cells Many H /HPF Urine Bacteria Many H (0-FEW/HPF) /HPF Urinalysis Comment Meds: Medications Discontinued Medications Generic Name Dose Route Start Last Admin Trade Name Freq PRN Reason Stop Dose Admin Cephalexin 500 mg 01/22/19 11:52 Keflex PO 01/22/19 11:53 ONETIME ONE Departure - Departure Time of Disposition: 11:55 Disposition: Home, Self-Care 01 Condition: Fair Clinical Impression: UTI (urinary tract infection) Qualifiers: Urinary tract infection type: site unspecified Hematuria presence: with hematuria Qualified Code(s): N39.0 - Urinary tract infection, site not specified ; R31.9 - Hematuria, unspecified - Discharge Information *PRESCRIPTION DRUG MONITORING PROGRAM REVIEWED*: Not Applicable *COPY OF PRESCRIPTION DRUG MONITORING REPORT IN PATIENT PAUL: Not Applicable Instructions: Urinary Tract Infection, Adult, [id number] Forms: ED Department Discharge Care Plan Goals: The patient was advised of the examination, lab and CT results during the visit. The patient was given an oral dose of Keflex (500 mg) while in the ED. The patient was discharged with a script for Keflex (500 mg) to take 1 by mouth 2 times per day for 7 days. If the patient has any additional symptoms or concerns, the patient should either return to the emergency department or visit her primary care facility. - My Orders Last 24 Hours: My Active Orders 01/22/19 10:32 CULTURE URINE [RM] Urgent - Assessment/Plan Last 24 Hours: My Active Orders 01/22/19 10:32 CULTURE URINE [RM] Urgent
[2019-01-22 11:23] LABS: ANION GAP 14.6; CHLORIDE,CL 103 mmol/L (101-111); SODIUM,NA 137 mmol/L (135-145)
--- NOTE | 2019-01-22 11:50 | CT ---
Clinical history: 63-year-old 227 pound female emergency Department with UTI, left flank pain and hematuria (history of "kidney stones"). Several abdominal surgeries i.e. cholecystectomy, appendectomy and hysterectomy. Scan technique: Volume acquisition of data emergency unenhanced CT scan of the abdomen/pelvis (kidneys, ureters and bladder) obtained while patient was lying supine on the Siemens multislice scanner [place], [place]. All data archived in the PACS system for storage, reformatting axial/sagittal/coronal planes and study. Interpretation: Abnormal. 1. Cortical scarring left kidney with numerous calyceal calcifications (nephrolithiasis) ranging in size from 3-5 mm diameter. (Subtle isolated 1-2 mm calcification upper midpole cortex contralateral right kidney) 2. Asymmetric relative dilatation (mild) left renal pelvis and ipsilateral ureter but without intraluminal ureteral calcification. Recently "passed" stone on the left probable but empty bladder shows no intraluminal calcification. Clinical correlation please. 3. No caliectasis or abnormal dilatation calyces of either kidney. No renal cortical mass lesions (unenhanced exam). 4. Exaggerated lumbar lordosis, signs of chronic lower lumbar L5-S1 disc disease (arthritis), and 40% compression fracture T12 vertebral body this osteopenic patient was present on previous exam 23 March 2018. 5. Diverticula sigmoid colon without current signs of inflammation. Cholecystectomy. Scattered punctate calcifications throughout the liver and spleen. Pancreas and adrenal glands unremarkable. Normal caliber aortoiliac vessels. 6. Normal cardiac silhouette. Lung bases clear. No hiatal, ventral wall or inguinal hernias. Hysterectomy. CONCLUSION: Bilateral nephrolithiasis. *Possible recently passed left ureteral stone (see above) i.e. no current sign of intraluminal calcification collecting system left kidney/ureter. Old T12 compression Fx.
[2019-01-22] MEDS ORDERED: Cephalexin 500 MG Cap PO ONE (11:52)
== END 2019-01-22 12:08 | disposition home or self-care (01) ==
LOC: DL.ED 10:29
DX: N39.0 Urinary tract infection, site not specified (principal); R31.9 Hematuria, unspecified; I12.9 Hypertensive chronic kidney disease with stage 1 through stage 4 chronic kidney disease, or unspecified chronic kidney disease; N18.9 Chronic kidney disease, unspecified; E03.9 Hypothyroidism, unspecified; Z88.5 Allergy status to narcotic agent; Z88.6 Allergy status to analgesic agent; Z88.8 Allergy status to other drugs, medicaments and biological substances; Z88.2 Allergy status to sulfonamides; Z79.899 Other long term (current) drug therapy; Z90.49 Acquired absence of other specified parts of digestive tract; Z90.710 Acquired absence of both cervix and uterus; Z98.51 Tubal ligation status
CPT/HCPCS: 36415; 74176; 80053; 81001; 85025; 87086; 99284; A9270

== ENCOUNTER 2019-02-06 16:43 | Emergency (ER) | payer MEDICARE, MEDICAID ==
[2019-02-06] MEDS ORDERED: LORazepam 1 MG Tab PO ONE (16:44)
[2019-02-06 16:58] VITALS: BP 162/86
--- NOTE | 2019-02-06 18:08 | EDM.PDOC ---
ED HPI GENERAL MEDICAL PROBLEM - General Chief Complaint: Abdominal Pain Stated Complaint: STOMACH/SIDE CRAMPS, DIZZY SPELLS Time Seen by Provider: 02/06/19 18:03 Source of Information: Reports: Patient History Limitations: Reports: No Limitations - History of Present Illness INITIAL COMMENTS - FREE TEXT/NARRATIVE: c/o 4 months h/o on-off abd pain and right side pain. sees Dr Brock for K- stone problems, already had appy+uterus+GB removed, had both upper & lower GI scope few years ago, past 3 days been having diarrhoea & nausea, no appetite. knows her pain is not from K-stones. Abdomen Pain Score (Numeric/FACES): 7 - Related Data Allergies Allergy/AdvReac Type Severity Reaction Status Date / Time morphine Allergy Rash Verified 02/06/19 16:58 sulfamethoxazole Allergy Dizziness Verified 02/06/19 16:58 [From Bactrim] trimethoprim [From Bactrim] Allergy Dizziness Verified 02/06/19 16:58 hydrocodone bitartrate AdvReac Stomach Verified 02/06/19 16:58 [From Vicodin] Upset NSAIDS (Non-Steroidal AdvReac Nausea Verified 02/06/19 16:58 Anti-Inflamma Home Meds: Home Meds Albuterol [Ventolin HFA] 2 puff INH Q4H PRN 05/28/15 [History] Fluticasone/Salmeterol [Advair Diskus 250-50] 1 puff INH BID 05/28/15 [History] hydroCHLOROthiazide [Hydrochlorothiazide] 25 mg PO DAILY PRN 05/28/15 [History] Acetaminophen 1,000 mg PO Q6H PRN 03/09/18 [History] Cholecalciferol (Vitamin D3) [Vitamin D3] 2,000 units PO DAILY 03/09/18 [History ] Ipratropium/Albuterol Sulfate [IJD: DuoNeb 3.0-0.5 MG/3 ML] 1 vial INH Q4H PRN 03/09/18 [History] Levothyroxine 225 mcg PO DAILY 03/09/18 [History] Ondansetron [Zofran ODT] 4 mg PO Q8H PRN 03/09/18 [History] oxyCODONE 5 mg PO Q6H PRN 03/09/18 [History] Past Medical History HEENT History: Reports: Impaired Vision, Other (See Below) Other HEENT History: UPPER DENTURE, BOTTOM PARTIAL DENTURE, wears glasses Cardiovascular History: Reports: High Cholesterol, Hypertension Respiratory History: Reports: COPD, Intubation, Previous, Sleep Apnea, SOB Gastrointestinal History: Reports: Diverticulosis Genitourinary History: Reports: Chronic Renal Insuffiency, Hydronephrosis, Renal Calculus, UTI, Recurrent GLACIOLOGIST History: 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 BILAT CARPAL TUNNEL SYNDROME Neurological History: Reports: Concussion Psychiatric History: Reports: Mood Swings Endocrine/Metabolic History: Reports: Hypothyroidism, Obesity/BMI 30+, Osteopenia, Vitamin D Deficiency Hematologic History: Reports: None Immunologic History: Reports: None Oncologic (Cancer) History: Reports: None Dermatologic History: Reports: None - Infectious Disease History Infectious Disease History: Reports: Chicken Pox, Measles, Mumps - Past Surgical History Head Surgeries/Procedures: Reports: None Cardiovascular Surgical History: Reports: Other (See Below) Other Cardiovascular Surgeries/Procedures: cardiac cath - PATIENT DENIES CARDIAC CATH 03/09/18. ELECTROCARDIOGRAM Respiratory Surgical History: Reports: None GI Surgical History: Reports: Appendectomy, Cholecystectomy, Colonoscopy, Hernia , Inguinal, Other (See Below) Other GI Surgeries/Procedures: DENIES INGUINAL HERNIA REPAIR 03/09/18 Female Surgical History: Reports: Hysterectomy, Lithotripsy/ESWL, Tubal Ligation, Ureteral Stent Endocrine Surgical History: Reports: None Neurological Surgical History: Reports: C-Spine Musculoskeletal Surgical History: Reports: Arthroscopic Knee, Carpal Tunnel, Joint Replacement Other Musculoskeletal Surgeries/Procedures:: TOTAL R) knee surg, RIGHT & LEFT ( DENIES LEFT CARPAL TUNNEL RELEASE 03/09/18)carpal tunnel, neck surg Oncologic Surgical History: Reports: None Dermatological Surgical History: Reports: None Social & Family History - Family History Family Medical History: Noncontributory - Tobacco Use Smoking Status *Q: Never Smoker Second Hand Smoke Exposure: No - Caffeine Use Caffeine Use: Reports: Coffee, Soda Other Caffeine Use: 1 CUP DAILY - Recreational Drug Use Recreational Drug Use: No ED ROS GENERAL - Review of Systems Review Of Systems: ROS reveals no pertinent complaints other than HPI. ED EXAM, GI/ABD - Physical Exam Exam: See Below Exam Limited By: No Limitations General Appearance: Alert, WD/WN, Mild Distress, Other (upset). No: Active Emesis Ears: Hearing Grossly Normal Throat/Mouth: Normal Voice, No Airway Compromise Head: Atraumatic Neck: Non-Tender, Full Range of Motion Respiratory/Chest: No Respiratory Distress, Lungs Clear Cardiovascular: Regular Rate, Rhythm GI/Abdominal Exam: Soft, Tender, Other (minor periumb discomfort, BS ^). No: Distended, Guarding, Rigid, Rebound Neurological: Alert, Oriented, Normal Cognition, Normal Gait, No Motor/Sensory Deficits Psychiatric: Flat Affect Skin Exam: Warm, Dry, Normal Color Lymphatic: No Adenopathy Course - Vital Signs Last Recorded V/S: Last Vital Signs Temp 36.2 C 02/06/19 17:06 Pulse 68 02/06/19 17:06 Resp 16 02/06/19 17:06 BP 162/86 H 02/06/19 17:06 Pulse Ox 97 02/06/19 17:06 - Orders/Labs/Meds Labs: Laboratory Tests 02/06/19 02/06/19 02/06/19 Range/Units 18:10 18:10 18:10 WBC 12.4 H (5.0-10.0) 10^3/uL RBC 5.00 (4.2-5.4) 10^6/uL Hgb 14.5 (12.0-16.0) g/dL Hct 41.9 (37.0-47.0) % MCV 83.8 (80-100) fL MCH 29.0 (27.0-34.0) pg MCHC 34.6 (33.0-35.0) g/dL Plt Count 244 (150-450) 10^3/uL Neut % (Auto) 60.7 (42.2-75.2) % Lymph % (Auto) 26.8 (20.5-50.1) % [place] % (Auto) 9.0 H (2-8) % Eos % (Auto) 3.1 H (1.0-3.0) % Baso % (Auto) 0.4 (0.0-1.0) % Sodium 138 (135-145) mmol/L Potassium 3.5 L (3.6-5.0) mmol/L Chloride 103 (101-111) mmol/L Carbon Dioxide 25.0 (21.0-31.0) mmol/L Anion Gap 13.5 BUN 12 (7-18) mg/dL Creatinine 1.0 (0.6-1.3) mg/dL Est Cr Clr Drug Dosing 49.08 mL/min Estimated GFR (MDRD) 56 BUN/Creatinine Ratio 12.00 Glucose 143 H (74-105) mg/dL Calcium 9.2 (8.4-10.2) mg/dl Total Bilirubin 0.9 (0.2-1.0) mg/dL AST 21 (10-42) IU/L ALT 19 (10-60) IU/L Alkaline Phosphatase 81 (42-121) IU/L C-Reactive Protein 1.4 H (0.0-1.3) mg/dL Total Protein 7.5 (6.7-8.2) g/dl Albumin 4.1 (3.2-5.5) g/dl Globulin 3.4 Albumin/Globulin Ratio 1.21 - Re-Assessments/Exams Free Text/Narrative Re-Assessment/Exam: 02/06/19 18:59 results discussed with pt who states her mother dies this am and been really upset. Departure - Departure Time of Disposition: 19:01 Disposition: Home, Self-Care 01 Condition: Fair Clinical Impression: Diarrhea Qualifiers: Diarrhea type: unspecified type Qualified Code(s): R19.7 - Diarrhea, unspecified Insomnia Qualifiers: Insomnia type: adjustment Qualified Code(s): F51.02 - Adjustment insomnia - Discharge Information Instructions: Diarrhea, Adult, [id number] Forms: ED Department Discharge Additional Instructions: 1) avoid solid foods next 48 hours 2) have electrolyte liquids 3) follow up with family doctor for MRI SCAN of abdomen rx togo; ativan 1mg x 1
[2019-02-06 18:38] LABS: ANION GAP 13.5
[2019-02-06] MEDS ORDERED: LORazepam 1 MG Tab ONE (19:05)
== END 2019-02-06 19:10 | disposition home or self-care (01) ==
LOC: DL.ED 16:43
DX: R19.7 Diarrhea, unspecified (principal); F51.02 Adjustment insomnia; E78.00 Pure hypercholesterolemia, unspecified; I12.9 Hypertensive chronic kidney disease with stage 1 through stage 4 chronic kidney disease, or unspecified chronic kidney disease; J44.9 Chronic obstructive pulmonary disease, unspecified; E03.9 Hypothyroidism, unspecified; Z90.49 Acquired absence of other specified parts of digestive tract; Z90.710 Acquired absence of both cervix and uterus; Z88.8 Allergy status to other drugs, medicaments and biological substances; Z88.2 Allergy status to sulfonamides; Z79.899 Other long term (current) drug therapy
CPT/HCPCS: 36415; 80053; 85025; 86140; 99283; A9270

== ENCOUNTER 2019-03-06 08:19 | Observation (INO) | payer MEDICARE, MEDICAID ==
--- NOTE | 2019-03-06 08:36 | EDM.PDOC ---
"ED HPI GENERAL MEDICAL PROBLEM - General Chief Complaint: Abdominal Pain Stated Complaint: LLQ ABDOMINAL PAIN/THROWING UP/DIZZY Time Seen by Provider: 03/06/19 08:34 Source of Information: Reports: Patient, Old Records, RN, RN Notes Reviewed History Limitations: Reports: No Limitations - History of Present Illness INITIAL COMMENTS - FREE TEXT/NARRATIVE: Pt presents to ER by POV with c/o onset of LLQ abdominal pain radiating to the left groin, associated with nausea, and vomiting. Denies fever, chills, diarrhea , constipation, bloody stool or mucus on stool. Pt has Hx of kidney stones, but feels that this pain is somewhat different. Pt admits to some pain into the left flank area. She has not noticed any change to the appearance or color of her urine, but admits that she hasn't paid close attention to her urine's appearance. 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: Reports: Other (see below) Left Lower Abdomen Pain Score (Numeric/FACES): 9 - Related Data Allergies Allergy/AdvReac Type Severity Reaction Status Date / Time morphine Allergy Rash Verified 03/06/19 08:55 sulfamethoxazole Allergy Dizziness Verified 03/06/19 08:55 [From Bactrim] trimethoprim [From Bactrim] Allergy Dizziness Verified 03/06/19 08:55 hydrocodone bitartrate AdvReac Stomach Verified 03/06/19 08:55 [From Vicodin] Upset NSAIDS (Non-Steroidal AdvReac Nausea Verified 03/06/19 08:55 Anti-Inflamma Home Meds: Home Meds Albuterol [Ventolin HFA] 2 puff INH Q4H PRN 05/28/15 [History] Fluticasone/Salmeterol [Advair Diskus 250-50] 1 puff INH BID 05/28/15 [History] Acetaminophen 1,000 mg PO Q6H PRN 03/09/18 [History] Cholecalciferol (Vitamin D3) [Vitamin D3] 2,000 units PO DAILY 03/09/18 [History ] Ipratropium/Albuterol Sulfate [IJD: DuoNeb 3.0-0.5 MG/3 ML] 1 vial INH Q4H PRN 03/09/18 [History] Levothyroxine 225 mcg PO DAILY 03/09/18 [History] Past Medical History HEENT History: Reports: Impaired Vision, Other (See Below) Other HEENT History: UPPER DENTURE, BOTTOM PARTIAL DENTURE, wears glasses Cardiovascular History: Reports: High Cholesterol, Hypertension Respiratory History: Reports: COPD, Intubation, Previous, Sleep Apnea, SOB Gastrointestinal History: Reports: Diverticulosis Genitourinary History: Reports: Chronic Renal Insuffiency, Hydronephrosis, Renal Calculus, UTI, Recurrent 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 BILAT CARPAL TUNNEL SYNDROME Neurological History: Reports: Concussion Psychiatric History: Reports: Mood Swings Endocrine/Metabolic History: Reports: Hypothyroidism, Obesity/BMI 30+, Osteopenia, Vitamin D Deficiency Hematologic History: Reports: None Immunologic History: Reports: None Oncologic (Cancer) History: Reports: None Dermatologic History: Reports: None - Infectious Disease History Infectious Disease History: Reports: Chicken Pox, Measles, Mumps, TB Other Infectious Disease History: doesnt have TB but will test positive - Past Surgical History Head Surgeries/Procedures: Reports: None Cardiovascular Surgical History: Reports: Other (See Below) Other Cardiovascular Surgeries/Procedures: cardiac cath - PATIENT DENIES CARDIAC CATH 03/09/18. ELECTROCARDIOGRAM Respiratory Surgical History: Reports: None GI Surgical History: Reports: Appendectomy, Cholecystectomy, Colonoscopy, Hernia , Inguinal, Other (See Below) Other GI Surgeries/Procedures: DENIES INGUINAL HERNIA REPAIR 03/09/18 Female Surgical History: Reports: Hysterectomy, Lithotripsy/ESWL, Tubal Ligation, Ureteral Stent Endocrine Surgical History: Reports: None Neurological Surgical History: Reports: C-Spine Musculoskeletal Surgical History: Reports: Arthroscopic Knee, Carpal Tunnel, Joint Replacement Other Musculoskeletal Surgeries/Procedures:: TOTAL R) knee surg, RIGHT & LEFT ( DENIES LEFT CARPAL TUNNEL RELEASE 03/09/18)carpal tunnel, neck surg Oncologic Surgical History: Reports: None Dermatological Surgical History: Reports: None Social & Family History - Family History Family Medical History: Noncontributory - Tobacco Use Smoking Status *Q: Never Smoker Second Hand Smoke Exposure: No - Caffeine Use Caffeine Use: Reports: Coffee Other Caffeine Use: 1 CUP DAILY - Recreational Drug Use Recreational Drug Use: No - Living Situation & Occupation Living situation: Reports: Extended Care Facility ED ROS GENERAL - Review of Systems Review Of Systems: ROS reveals no pertinent complaints other than HPI. ED EXAM, GI/ABD - Physical Exam Exam: See Below Exam Limited By: No Limitations General Appearance: Alert, No Apparent Distress, Obese Eyes: Bilateral: Normal Appearance (No scleral icterus) Nose: Normal Inspection Throat/Mouth: Normal Inspection, Normal Lips, Normal Voice, No Airway Compromise Head: Atraumatic, Normocephalic Neck: Normal Inspection, Supple, Non-Tender, Full Range of Motion Respiratory/Chest: No Respiratory Distress, Lungs Clear, Normal Breath Sounds, No Accessory Muscle Use, Chest Non-Tender Cardiovascular: Regular Rate, Rhythm GI/Abdominal Exam: Normal Bowel Sounds, Soft, No Distention, No Abnormal Bruit, Tender (to palpation at LLQ without peritoneal signs). No: Guarding, Rigid, Rebound (Female) Exam: Deferred Rectal (Female) Exam: Deferred Back Exam: CVA Tenderness (L). No: CVA Tenderness (R), Paraspinal Tenderness, Vertebral Tenderness Extremities: Normal Inspection Neurological: Alert, Oriented, CN II-XII Intact, Normal Cognition, Normal Gait, No Motor/Sensory Deficits Psychiatric: Normal Affect Skin Exam: Warm, Dry, Intact, Normal Color, No Rash Course - Vital Signs Last Recorded V/S: Last Vital Signs Temp 37.5 C 03/06/19 08:26 Pulse 60 03/06/19 11:04 Resp 18 03/06/19 11:04 BP 161/76 H 03/06/19 11:04 Pulse Ox 95 03/06/19 11:04 - Orders/Labs/Meds Orders: Active Orders 24 hr Category Date Time Status Peripheral IV Care [RC] . DIRECTED Care 03/06/19 08:46 Active CULTURE BLOOD [BC] Stat Lab 03/06/19 08:35 Received CULTURE URINE [RM] Stat Lab 03/06/19 09:31 Received Sodium Chloride 0.9% [Saline Flush] Med 03/06/19 08:46 Active 10 ml FLUSH ASDIRECTED PRN Peripheral IV Insertion Adult [OM.PC] Stat Oth 03/06/19 08:46 Ordered Medication Orders Sodium Chloride (Saline Flush) 10 ml FLUSH ASDIRECTED PRN PRN Reason: Keep Vein Open Last Admin: 03/06/19 08:53 Dose: 10 ml Labs: Laboratory Tests 03/06/19 03/06/19 03/06/19 Range/Units 08:35 08:35 08:35 WBC 11.8 H (5.0-10.0) 10^3/uL RBC 5.31 (4.2-5.4) 10^6/uL Hgb 15.7 (12.0-16.0) g/dL Hct 44.2 (37.0-47.0) % MCV 83.2 (80-100) fL MCH 29.6 (27.0-34.0) pg MCHC 35.5 H (33.0-35.0) g/dL Plt Count 246 (150-450) 10^3/uL Neut % (Auto) 70.2 (42.2-75.2) % Lymph % (Auto) 20.7 (20.5-50.1) % Person % (Auto) 6.0 (2-8) % Eos % (Auto) 2.7 (1.0-3.0) % Baso % (Auto) 0.4 (0.0-1.0) % Sodium 136 (135-145) mmol/L Potassium 3.7 (3.6-5.0) mmol/L Chloride 100 L (101-111) mmol/L Carbon Dioxide 24.0 (21.0-31.0) mmol/L Anion Gap 15.7 BUN 17 (7-18) mg/dL Creatinine 1.0 (0.6-1.3) mg/dL Est Cr Clr Drug Dosing 49.08 mL/min Estimated GFR (MDRD) 56 BUN/Creatinine Ratio 17.00 Glucose 160 H (74-105) mg/dL Lactic Acid 1.8 (0.5-2.2) mmol/L Calcium 9.4 (8.4-10.2) mg/dl Total Bilirubin 0.7 (0.2-1.0) mg/dL AST 23 (10-42) IU/L ALT 23 (10-60) IU/L Alkaline Phosphatase 91 (42-121) IU/L C-Reactive Protein (0.0-1.3) mg/dL Total Protein 8.0 (6.7-8.2) g/dl Albumin 4.1 (3.2-5.5) g/dl Globulin 3.9 Albumin/Globulin Ratio 1.05 Amylase 93 (28-100) U/L Lipase 38 (22-51) U/L Urine Color (YELLOW) Urine Appearance (CLEAR) Urine pH (5.0-9.0) Ur Specific [place] (1.005-1.030) Urine Protein (NEGATIVE) Urine Glucose (UA) (NEGATIVE) Urine Ketones (NEGATIVE) Urine Occult Blood (NEGATIVE) Urine Nitrite (NEGATIVE) Urine Bilirubin (NEGATIVE) Urine Urobilinogen (0.2-1.0) mg/dL Ur Leukocyte Esterase (NEGATIVE) Urine RBC /HPF Urine WBC (0-5/HPF) /HPF Ur Epithelial Cells /HPF Amorphous Sediment (0/HPF) /HPF Urine Bacteria (0-FEW/HPF) /HPF Urine Mucus /LPF 03/06/19 03/06/19 Range/Units 08:35 09:31 WBC (5.0-10.0) 10^3/uL RBC (4.2-5.4) 10^6/uL Hgb (12.0-16.0) g/dL Hct (37.0-47.0) % MCV (80-100) fL MCH (27.0-34.0) pg MCHC (33.0-35.0) g/dL Plt Count (150-450) 10^3/uL Neut % (Auto) (42.2-75.2) % Lymph % (Auto) (20.5-50.1) % Person % (Auto) (2-8) % Eos % (Auto) (1.0-3.0) % Baso % (Auto) (0.0-1.0) % Sodium (135-145) mmol/L Potassium (3.6-5.0) mmol/L Chloride (101-111) mmol/L Carbon Dioxide (21.0-31.0) mmol/L Anion Gap BUN (7-18) mg/dL Creatinine (0.6-1.3) mg/dL Est Cr Clr Drug Dosing mL/min Estimated GFR (MDRD) BUN/Creatinine Ratio Glucose (74-105) mg/dL Lactic Acid (0.5-2.2) mmol/L Calcium (8.4-10.2) mg/dl Total Bilirubin (0.2-1.0) mg/dL AST (10-42) IU/L ALT (10-60) IU/L Alkaline Phosphatase (42-121) IU/L C-Reactive Protein 1.7 H (0.0-1.3) mg/dL Total Protein (6.7-8.2) g/dl Albumin (3.2-5.5) g/dl Globulin Albumin/Globulin Ratio Amylase (28-100) U/L Lipase (22-51) U/L Urine Color Yellow (YELLOW) Urine Appearance Cloudy (CLEAR) Urine pH 7.0 (5.0-9.0) Ur Specific [place] 1.025 (1.005-1.030) Urine Protein 100 H (NEGATIVE) Urine Glucose (UA) Negative (NEGATIVE) Urine Ketones Negative (NEGATIVE) Urine Occult Blood Small H (NEGATIVE) Urine Nitrite Negative (NEGATIVE) Urine Bilirubin Negative (NEGATIVE) Urine Urobilinogen 0.2 (0.2-1.0) mg/dL Ur Leukocyte Esterase Small H (NEGATIVE) Urine RBC 20-30 H /HPF Urine WBC 40-50 H (0-5/HPF) /HPF Ur Epithelial Cells Moderate H /HPF Amorphous Sediment Moderate H (0/HPF) /HPF Urine Bacteria Few (0-FEW/HPF) /HPF Urine Mucus Few H /LPF Meds: Medications Generic Name Dose Route Start Last Admin Trade Name Roberto PRN Reason Stop Dose Admin Sodium Chloride 10 ml 03/06/19 08:46 03/06/19 08:53 Saline Flush FLUSH 10 ml ASDIRECTED PRN Administration Keep Vein Open Discontinued Medications Generic Name Dose Route Start Last Admin Trade Name Roberto PRN Reason Stop Dose Admin Diphenhydramine HCl 25 mg 03/06/19 08:47 03/06/19 08:52 Benadryl IVPUSH 03/06/19 08:48 25 mg ONETIME ONE Administration Fentanyl 100 mcg 03/06/19 08:47 03/06/19 08:52 Sublimaze IVPUSH 03/06/19 08:48 100 mcg ONETIME ONE Administration Fentanyl 50 mcg 03/06/19 10:22 03/06/19 10:27 Sublimaze IVPUSH 03/06/19 10:23 50 mcg ONETIME ONE Administration Ceftriaxone Sodium 2 gm/ 100 mls @ 200 mls/hr 03/06/19 10:22 03/06/19 10:30 Sodium Chloride IV 03/06/19 10:51 200 mls/hr ONETIME ONE Administration Ondansetron HCl 4 mg 03/06/19 08:46 03/06/19 08:52 Zofran IV 03/06/19 08:47 4 mg ONETIME ONE Administration Ondansetron HCl 4 mg 03/06/19 10:21 03/06/19 10:27 Zofran IV 03/06/19 10:22 4 mg ONETIME ONE Administration - Radiology Interpretation Free Text/Narrative:: [facility] Final Radiology Report Call: [phone] assistance Online chat: [email or web address] Name: JUSTINA CANO Age: 63Years F Date: 03/06/2019 SSN: -- : [id number] Study: CT ABDOMEN/PELVIS WO Requesting Physician: MICHAEL EUBANKS Images: [id number] Addl Studies: Provided Clinical History: LLQ pain radiates to left groin, Hx kidney stones Contrast: Without Contrast Medium: Contrast Amount: Contrast Method: Page 1 of 2 EXAM: CT Abdomen and Pelvis Without Contrast EXAM DATE/TIME: 03/06/2019 9:41 AM CLINICAL HISTORY: 63 years old, female; Pain; Abdominal pain; Localized; Left lower quadrant (llq) ; Prior surgery; Surgery date: 6+ months; Surgery type: Appendix and gallbladder removed, hysterectomy; Additional info: Llq pain radiates to left groin, HX kidney stones TECHNIQUE: Imaging protocol: Axial computed tomography images of the abdomen and pelvis without contrast. Coronal and sagittal reformatted images were created and reviewed. Radiation optimization: All CT scans at this facility use at least one of these dose optimization techniques: automated exposure control; mA and/or kV adjustment per patient size (includes targeted exams where dose is matched to clinical indication); or iterative reconstruction. COMPARISON: CT Abdomen Pelvis wo Cont 01/22/2019 11:22 AM FINDINGS: Lower thorax: There are multifocal peribronchial nodular densities seen within the perihilar right upper lobe which were not previously identified. This could be post infectious/ inflammatory but should be followed up. ABDOMEN: Liver: Again noted is hepatosplenomegaly with multifocal calcified granulomas seen throughout the liver and spleen. Gallbladder and bile ducts: Normal. No calcified stones. No ductal dilation. Pancreas: Normal. No ductal dilation. JUSTINA CANO | Final Radiology Report CONFIDENTIALITY STATEMENT This report is intended only for use by the referring physician, and only in accordance with law. If you received this in error, call [phone]. Page 2 of 2 Spleen: Normal. No splenomegaly. Adrenals: Normal. No mass. Kidneys and ureters: Again noted are multiple left-sided renal calculi. There is a 5-6 mm calculus within the mid left ureter at the lower S2 level with associated severe left- sided hydroureteronephrosis. Stomach and bowel: There are few scattered sigmoid diverticula without diverticulitis. Appendix: The appendix is normal. PELVIS: Bladder: Unremarkable as visualized. Reproductive: Unremarkable as visualized. ABDOMEN and PELVIS: Intraperitoneal space: Normal. No free air. No significant fluid collection. Bones/joints: There is a chronic mild anterior superior wedge compression deformity of the T12 vertebral body with chronic stable minimal superior retropulsion and mild stenosis. Soft tissues: Unremarkable. Vasculature: Normal. No abdominal aortic aneurysm. Lymph nodes: Normal. No enlarged lymph nodes. IMPRESSION: Left-sided nephrolithiasis. A 5-6 mm mid left ureteral calculus is associated with severe left-sided hydronephrosis. Thank you for allowing us to participate in the care of your patient. Dictated and Authenticated by: Lucas Alvarado MD 03/06/2019 10:35 AM Central Time ([place] & [place]) - Re-Assessments/Exams Free Text/Narrative Re-Assessment/Exam: 03/06/19 11:[address] Thomas via [employer]. He advises pt may be d/c'd home with clinic f/u if her pain is adequately controlled, or admitted locally if needed for pain control. He did not think she needed to be transferred at this time. Departure - Departure Time of Disposition: 11:34 (admitted to Dr. Mojica) Disposition: Admitted As Inpatient 65 Condition: Fair Clinical Impression: Left ureteral calculus, Hydronephrosis due to obstruction of ureter - Discharge Information *PRESCRIPTION DRUG MONITORING PROGRAM REVIEWED*: No *COPY OF PRESCRIPTION DRUG MONITORING REPORT IN PATIENT PAUL: No Forms: ED Department Discharge - My Orders Last 24 Hours: My Active Orders 03/06/19 08:35 CULTURE BLOOD [BC] Stat 03/06/19 08:46 Peripheral IV Care [RC] . DIRECTED Sodium Chloride 0.9% [Saline Flush] 10 ml FLUSH ASDIRECTED PRN Peripheral IV Insertion Adult [OM.PC] Stat 03/06/19 09:31 CULTURE URINE [RM] Stat - Assessment/Plan Last 24 Hours: My Active Orders 03/06/19 08:35 CULTURE BLOOD [BC] Stat 03/06/19 08:46 Peripheral IV Care [RC] . DIRECTED Sodium Chloride 0.9% [Saline Flush] 10 ml FLUSH ASDIRECTED PRN Peripheral IV Insertion Adult [OM.PC] Stat 03/06/19 09:31 CULTURE URINE [RM] Stat"
[2019-03-06] MEDS ORDERED: Ondansetron 4 MG/2 ML SDV IV ONE ×2 (08:46→10:21)
[2019-03-06] MEDS ORDERED: Sodium Chloride 0.9% 10 ML Syringe FLUSH PRN (08:46)
[2019-03-06] MEDS ORDERED: fentaNYL 100 MCG/2 ML SDV IVPUSH ONE ×3 (08:47→12:33)
[2019-03-06] MEDS ORDERED: diphenhydrAMINE 50 MG/ML SDV IVPUSH ONE (08:47)
[2019-03-06 09:05] LABS: ANION GAP 15.7
[2019-03-06] MEDS ORDERED: cefTRIAXone 2 GM in Sodium Chloride 0.9% 100 ML IV ONE (10:22)
[2019-03-06] MEDS ORDERED: Naloxone 2 MG/2 ML Syringe IVPUSH PRN (12:16)
[2019-03-06] MEDS ORDERED: Albuterol/Ipratropium 3.0-0.5 MG/3 ML Neb Soln INH PRN (12:21)
[2019-03-06] MEDS ORDERED: fentaNYL/Normal Saline 600 MCG/30 ML PCA Vial IV SCH (12:30)
[2019-03-06] MEDS ORDERED: Ondansetron 4 MG Tab.DIS PO PRN (12:33)
--- NOTE | 2019-03-06 12:43 | PCM.HP ---
H&P History of Present Illness - General Date of Service: 03/06/19 Admit Problem/Dx: Admission Diagnosis/Problem Admission Diagnosis/Problem Flank pain Source of Information: Patient - History of Present Illness Initial Comments - Free Text/Narative: 63-year-old lady with a history of COPD, recurrent left sided kidney stones requiring multiple urological intervention. The patient presented with sudden onset of left flank, abdominal pain. Pain started during the night. Associated with nausea. The pain is severe, radiating down to the groin area. The patient has history of COPD, no significant worsening of her baseline shortness of breath. Left Lower Abdomen Pain Score (Numeric/FACES): 9 - Related Data Allergies/Adverse Reactions: Allergies Allergy/AdvReac Type Severity Reaction Status Date / Time morphine Allergy Rash Verified 03/06/19 11:50 sulfamethoxazole Allergy Dizziness Verified 03/06/19 11:50 [From Bactrim] trimethoprim [From Bactrim] Allergy Dizziness Verified 03/06/19 11:50 hydrocodone bitartrate AdvReac Stomach Verified 03/06/19 11:50 [From Vicodin] Upset NSAIDS (Non-Steroidal AdvReac Nausea Verified 03/06/19 11:50 Anti-Inflamma Home Medications: Home Meds Albuterol [Ventolin HFA] 2 puff INH Q4H PRN 05/28/15 [History] Fluticasone/Salmeterol [Advair Diskus 250-50] 1 puff INH BID 05/28/15 [History] Acetaminophen 1,000 mg PO Q6H PRN 03/09/18 [History] Cholecalciferol (Vitamin D3) [Vitamin D3] 2,000 units PO DAILY 03/09/18 [History ] Ipratropium/Albuterol Sulfate [IJD: DuoNeb 3.0-0.5 MG/3 ML] 1 vial INH Q4H PRN 03/09/18 [History] Levothyroxine 225 mcg PO DAILY 03/09/18 [History] Cyclobenzaprine [Flexeril] 10 mg PO TID 03/06/19 [History] Tamsulosin HCl [Flomax] 0.4 mg PO DAILY 03/06/19 [History] Past Medical History HEENT History: Reports: Impaired Vision, Other (See Below) Other HEENT History: UPPER DENTURE, BOTTOM PARTIAL DENTURE, wears glasses Cardiovascular History: Reports: High Cholesterol, Hypertension Respiratory History: Reports: COPD, Intubation, Previous, Sleep Apnea, SOB Gastrointestinal History: Reports: Diverticulosis Genitourinary History: Reports: Chronic Renal Insuffiency, Hydronephrosis, Renal Calculus, UTI, 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 BILAT CARPAL TUNNEL SYNDROME Neurological History: Reports: Concussion Psychiatric History: Reports: Mood Swings Endocrine/Metabolic History: Reports: Hypothyroidism, Obesity/BMI 30+, Osteopenia, Vitamin D Deficiency Hematologic History: Reports: None Immunologic History: Reports: None Oncologic (Cancer) History: Reports: None Dermatologic History: Reports: None - Infectious Disease History Infectious Disease History: Reports: Chicken Pox, Measles, Mumps, TB Other Infectious Disease History: doesnt have TB but will test positive - Past Surgical History Head Surgeries/Procedures: Reports: None Cardiovascular Surgical History: Reports: Other (See Below) Other Cardiovascular Surgeries/Procedures: cardiac cath - PATIENT DENIES CARDIAC CATH 03/09/18. ELECTROCARDIOGRAM Respiratory Surgical History: Reports: None GI Surgical History: Reports: Appendectomy, Cholecystectomy, Colonoscopy, Hernia , Inguinal, Other (See Below) Other GI Surgeries/Procedures: DENIES INGUINAL HERNIA REPAIR 03/09/18 Female Surgical History: Reports: Hysterectomy, Lithotripsy/ESWL, Tubal Ligation, Ureteral Stent Endocrine Surgical History: Reports: None Neurological Surgical History: Reports: C-Spine Musculoskeletal Surgical History: Reports: Arthroscopic Knee, Carpal Tunnel, Joint Replacement Other Musculoskeletal Surgeries/Procedures:: TOTAL R) knee surg, RIGHT & LEFT ( DENIES LEFT CARPAL TUNNEL RELEASE 03/09/18)carpal tunnel, neck surg Oncologic Surgical History: Reports: None Dermatological Surgical History: Reports: None Social & Family History - Family History Family Medical History: Noncontributory - Tobacco Use Smoking Status *Q: Never Smoker Second Hand Smoke Exposure: No - Caffeine Use Caffeine Use: Reports: Coffee Other Caffeine Use: 1 CUP DAILY - Recreational Drug Use Recreational Drug Use: No - Living Situation & Occupation Living situation: Reports: Extended Care Facility H&P Review of Systems - Review of Systems: Review Of Systems: See Below General: Denies: Fever, Chills Pulmonary: Denies: Shortness of Breath Cardiovascular: Denies: Chest Pain Gastrointestinal: Denies: Abdominal Pain (Left flank area radiating to the groin ) Genitourinary: Reports: Flank Pain (Radiating to the groin), Other (No hematuria ) Psychiatric: Denies: Confusion Neurological: Denies: Dizziness Exam - Exam Exam: See Below - Vital Signs Vital Signs: Last Vital Signs Temp 36.3 C 03/06/19 11:49 Pulse 56 L 03/06/19 11:49 Resp 16 03/06/19 11:49 BP 185/89 H 03/06/19 11:49 Pulse Ox 97 03/06/19 11:49 Weight: 127.006 kg - Exam General: Alert, Oriented, Moderate Distress (Complaining of continued pain) Neck: Supple Lungs: Normal Respiratory Effort, Decreased Breath Sounds Cardiovascular: Regular Rate, Regular Rhythm GI/Abdominal Exam: Normal Bowel Sounds, Soft, Non-Tender Extremities: No Pedal Edema Skin: Warm, Dry Neuro Extensive - Mental Status: Alert, Oriented x3 Psychiatric: Alert, Normal Affect, Normal Mood - Patient Data Lab Results Last 24 hrs: Laboratory Results - last 24 hr 03/06/19 03/06/19 03/06/19 Range/Units 08:35 08:35 08:35 WBC 11.8 H (5.0-10.0) 10^3/uL RBC 5.31 (4.2-5.4) 10^6/uL Hgb 15.7 (12.0-16.0) g/dL Hct 44.2 (37.0-47.0) % MCV 83.2 (80-100) fL MCH 29.6 (27.0-34.0) pg MCHC 35.5 H (33.0-35.0) g/dL Plt Count 246 (150-450) 10^3/uL Neut % (Auto) 70.2 (42.2-75.2) % Lymph % (Auto) 20.7 (20.5-50.1) % [place] % (Auto) 6.0 (2-8) % Eos % (Auto) 2.7 (1.0-3.0) % Baso % (Auto) 0.4 (0.0-1.0) % Sodium 136 (135-145) mmol/L Potassium 3.7 (3.6-5.0) mmol/L Chloride 100 L (101-111) mmol/L Carbon Dioxide 24.0 (21.0-31.0) mmol/L Anion Gap 15.7 BUN 17 (7-18) mg/dL Creatinine 1.0 (0.6-1.3) mg/dL Est Cr Clr Drug Dosing 49.08 mL/min Estimated GFR (MDRD) 56 BUN/Creatinine Ratio 17.00 Glucose 160 H (74-105) mg/dL Lactic Acid 1.8 (0.5-2.2) mmol/L Calcium 9.4 (8.4-10.2) mg/dl Total Bilirubin 0.7 (0.2-1.0) mg/dL AST 23 (10-42) IU/L ALT 23 (10-60) IU/L Alkaline Phosphatase 91 (42-121) IU/L C-Reactive Protein (0.0-1.3) mg/dL Total Protein 8.0 (6.7-8.2) g/dl Albumin 4.1 (3.2-5.5) g/dl Globulin 3.9 Albumin/Globulin Ratio 1.05 Amylase 93 (28-100) U/L Lipase 38 (22-51) U/L Urine Color (YELLOW) Urine Appearance (CLEAR) Urine pH (5.0-9.0) Ur Specific [place] (1.005-1.030) Urine Protein (NEGATIVE) Urine Glucose (UA) (NEGATIVE) Urine Ketones (NEGATIVE) Urine Occult Blood (NEGATIVE) Urine Nitrite (NEGATIVE) Urine Bilirubin (NEGATIVE) Urine Urobilinogen (0.2-1.0) mg/dL Ur Leukocyte Esterase (NEGATIVE) Urine RBC /HPF Urine WBC (0-5/HPF) /HPF Ur Epithelial Cells /HPF Amorphous Sediment (0/HPF) /HPF Urine Bacteria (0-FEW/HPF) /HPF Urine Mucus /LPF 03/06/19 03/06/19 Range/Units 08:35 09:31 WBC (5.0-10.0) 10^3/uL RBC (4.2-5.4) 10^6/uL Hgb (12.0-16.0) g/dL Hct (37.0-47.0) % MCV (80-100) fL MCH (27.0-34.0) pg MCHC (33.0-35.0) g/dL Plt Count (150-450) 10^3/uL Neut % (Auto) (42.2-75.2) % Lymph % (Auto) (20.5-50.1) % Sterling % (Auto) (2-8) % Eos % (Auto) (1.0-3.0) % Baso % (Auto) (0.0-1.0) % Sodium (135-145) mmol/L Potassium (3.6-5.0) mmol/L Chloride (101-111) mmol/L Carbon Dioxide (21.0-31.0) mmol/L Anion Gap BUN (7-18) mg/dL Creatinine (0.6-1.3) mg/dL Est Cr Clr Drug Dosing mL/min Estimated GFR (MDRD) BUN/Creatinine Ratio Glucose (74-105) mg/dL Lactic Acid (0.5-2.2) mmol/L Calcium (8.4-10.2) mg/dl Total Bilirubin (0.2-1.0) mg/dL AST (10-42) IU/L ALT (10-60) IU/L Alkaline Phosphatase (42-121) IU/L C-Reactive Protein 1.7 H (0.0-1.3) mg/dL Total Protein (6.7-8.2) g/dl Albumin (3.2-5.5) g/dl Globulin Albumin/Globulin Ratio Amylase (28-100) U/L Lipase (22-51) U/L Urine Color Yellow (YELLOW) Urine Appearance Cloudy (CLEAR) Urine pH 7.0 (5.0-9.0) Ur Specific [place] 1.025 (1.005-1.030) Urine Protein 100 H (NEGATIVE) Urine Glucose (UA) Negative (NEGATIVE) Urine Ketones Negative (NEGATIVE) Urine Occult Blood Small H (NEGATIVE) Urine Nitrite Negative (NEGATIVE) Urine Bilirubin Negative (NEGATIVE) Urine Urobilinogen 0.2 (0.2-1.0) mg/dL Ur Leukocyte Esterase Small H (NEGATIVE) Urine RBC 20-30 H /HPF Urine WBC 40-50 H (0-5/HPF) /HPF Ur Epithelial Cells Moderate H /HPF Amorphous Sediment Moderate H (0/HPF) /HPF Urine Bacteria Few (0-FEW/HPF) /HPF Urine Mucus Few H /LPF Result Diagrams: 03/06/19 08:35 03/06/19 08:35 Imaging Impressions Last 24 hrs: Left-sided hydronephrosis noted on CT - Problem List (1) Flank pain SNOMED Code(s): 374767273 ICD Code: R10.9 - UNSPECIFIED ABDOMINAL PAIN Status: Acute Current Visit : No (2) Hydronephrosis due to obstruction of ureter SNOMED Code(s): 047504327 ICD Code: N13.2 - HYDRONEPHROSIS WITH RENAL AND URETERAL CALCULOUS OBSTRUCTION Status: Acute Current Visit: No (3) Left ureteral calculus SNOMED Code(s): 81894423 ICD Code: N20.1 - CALCULUS OF URETER Status: Acute Current Visit: No Problem List Initiated/Reviewed/Updated: Yes Orders Last 24hrs: Active Orders 24 hr Category Date Time Status Patient Status [ADT] Routine ADT 03/06/19 12:34 Ordered Antiembolic Devices [RC] PER UNIT ROUTINE Care 03/06/19 12:35 Ordered Communication Order [RC] STAT Care 03/06/19 12:16 Active Notify Provider [RC] PRN Care 03/06/19 12:16 Active Oxygen Therapy [RC] PRN Care 03/06/19 12:34 Ordered Peripheral IV Care [RC] . DIRECTED Care 03/06/19 08:46 Active Pulse Oximetry [RC] CONTINUOUS Care 03/06/19 12:16 Active Up With Assistance [RC] ASDIRECTED Care 03/06/19 12:33 Ordered VTE/DVT Education [RC] PER UNIT ROUTINE Care 03/06/19 12:34 Ordered Vital Signs [RC] Q4H Care 03/06/19 12:34 Ordered Nothing per Oral Now Diet [DIET] Diet 03/06/19 Dinner Ordered BASIC METABOLIC PANEL,BMP [CHEM] AM Lab 03/07/19 05:11 Ordered CBC WITH AUTO DIFF [HEME] AM Lab 03/07/19 05:11 Ordered CULTURE BLOOD [BC] Stat Lab 03/06/19 08:35 Received CULTURE URINE [RM] Stat Lab 03/06/19 09:31 Received Albuterol/Ipratropium [DuoNeb 3.0-0.5 MG/3 ML] Med 03/06/19 12:21 Ordered DOSE ml INH Q4H PRN Cyclobenzaprine [Flexeril] Med 03/06/19 14:00 Ordered 10 mg PO TID Fluticasone/Salmeterol [Advair Diskus 250-50] Med 03/06/19 21:00 Ordered 1 puff INH BID Heparin Sodium Med 03/06/19 21:00 Ordered 5,000 units SUBCUT Q8HR Levothyroxine Med 03/07/19 09:00 Ordered 225 mcg PO DAILY Naloxone [Narcan] Med 03/06/19 12:16 Active 0.4 mg IVPUSH Q2M PRN Ondansetron [Zofran ODT] Med 03/06/19 12:33 Ordered 4 mg PO Q4H PRN Ondansetron [Zofran] Med 03/06/19 12:33 Ordered 4 mg IVPUSH Q6H PRN Sodium Chloride 0.9% [Saline Flush] Med 03/06/19 08:46 Active 10 ml FLUSH ASDIRECTED PRN Tamsulosin [Flomax] Med 03/06/19 12:30 Ordered 0.4 mg PO DAILY cefTRIAXone [Rocephin] 1 gm Med 03/07/19 12:30 Active Sodium Chloride 0.9% [Normal Saline] 50 ml IV Q24H fentaNYL/Normal Saline [fentaNYL in NS 20 MCG/ML 30 ML Med 03/06/19 12:30 Active 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] See Protocol IV ASDIRECTED Antiembolic Hose [OM.PC] Per Unit Routine Oth 03/06/19 12:35 Ordered Medication Discontinuation Instructions [OM.PC] Stat Oth 03/06/19 12:16 Ordered Peripheral IV Insertion Adult [OM.PC] Stat Oth 03/06/19 08:46 Ordered Resuscitation Status Routine Resus Stat 03/06/19 12:33 Ordered Medication Orders Albuterol/Ipratropium (Duoneb 3.0-0.5 Mg/3 Ml) 3 ml INH Q4H PRN PRN Reason: Shortness of Breath Cyclobenzaprine HCl (Flexeril) 10 mg PO TID JAIME Fentanyl (Sublimaze) 25 mcg IVPUSH ONETIME ONE Stop: 03/06/19 12:34 Fentanyl Citrate (Fentanyl In Ns 20 Mcg/Ml 30 Ml Ordnance Engineer) 0 mcg IV ASDIRECTED JAIME; Protocol Heparin Sodium (Porcine) (Heparin Sodium) 5,000 units SUBCUT Q8HR JAIME Ceftriaxone Sodium 1 gm/ (Sodium Chloride) 50 mls @ 50 mls/hr IV Q24H JAIME Levothyroxine Sodium (Levothyroxine) 225 mcg PO ACBREAKFAST [facility] Mometasone Furoate/Formoterol Fumar (Dulera 200-5 Mcg) 2 puff IH BID [facility] Naloxone HCl (Narcan) 0.4 mg IVPUSH Q2M PRN PRN Reason: respiratory distress Ondansetron HCl (Zofran Odt) 4 mg PO Q4H PRN PRN Reason: nausea, able to take PO Ondansetron HCl (Zofran) 4 mg IVPUSH Q6H PRN PRN Reason: Nausea/Vomiting Sodium Chloride (Saline Flush) 10 ml FLUSH ASDIRECTED PRN PRN Reason: Keep Vein Open Last Admin: 03/06/19 08:53 Dose: 10 ml Tamsulosin HCl (Flomax) 0.4 mg PO DAILY [facility] Assessment/Plan Comment:: 63-year-old with a history of COPD, recurrent left-sided nephrolithiasis. The patient presented with symptoms of left ureteral stone causing severe hydronephrosis seen on CT. 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 Treat with tamsulosin Evaluate for possible urinary tract infection The patient was noted to have low-grade temperature 37.5, minimally elevated white blood cell count Blood culture, urine culture obtained The patient received Rocephin in the emergency room I will continue that We'll call urology at [facility] to discuss the above to get an opinion about the need for urgent intervention or transfer Hydrate the patient well in the meantime, strain urine COPD No acute exacerbation Continue inhalers Hyperglycemia noted We'll follow blood sugars DVT prophylaxis with subcutaneous heparin Discussed with the emergency room physician Dr. Strong
[2019-03-06] MEDS ORDERED: 50% Dextrose in Water 50 ML Syringe IVPUSH PRN (12:44)
[2019-03-06] MEDS: Tamsulosin 0.4 MG Cap.ER PO SCH (12:58)
[2019-03-06] MEDS ORDERED: oxyCODONE 5 MG Tab PO PRN (13:18)
[2019-03-06] MEDS: NS + KCl 20mEq/L 1,000 ML IV SCH ×2 (13:59→21:58)
[2019-03-06] MEDS ORDERED: Cyclobenzaprine 10 MG Tab PO SCH ×2 (14:00→21:00)
[2019-03-06] MEDS ORDERED: Ketorolac 30 MG/ML SDV IVPUSH ONE (14:00)
[2019-03-06] MEDS: fentaNYL 100 MCG/2 ML SDV IVPUSH PRN ×4 (14:05→21:48)
[2019-03-06] MEDS: Ondansetron 4 MG/2 ML SDV IVPUSH PRN ×2 (14:15→21:41)
[2019-03-06] MEDS: Insulin Lispro 100 Units/ML 3 ML Vial SUBCUT SCH ×2 (17:26→22:01)
[2019-03-06] MEDS: Formoterol/Mometasone 200-5 MCG 8.8 GM Inhaler IH SCH (22:01)
[2019-03-06] MEDS: Heparin Sodium 5,000 Units/ML Vial SUBCUT SCH (22:04)
[2019-03-07] MEDS: fentaNYL 100 MCG/2 ML SDV IVPUSH PRN ×6 (01:00→16:43)
[2019-03-07] MEDS: NS + KCl 20mEq/L 1,000 ML IV SCH ×2 (05:57→14:36)
[2019-03-07] MEDS ORDERED: Levothyroxine 75 MCG Tab PO SCH (06:00)
[2019-03-07] MEDS: Heparin Sodium 5,000 Units/ML Vial SUBCUT SCH ×2 (06:08→13:14)
[2019-03-07 06:46] LABS: ANION GAP 14.8
[2019-03-07] MEDS: Ondansetron 4 MG/2 ML SDV IVPUSH PRN (07:57)
[2019-03-07] MEDS: Insulin Lispro 100 Units/ML 3 ML Vial SUBCUT SCH ×2 (08:31→12:21)
[2019-03-07] MEDS: Tamsulosin 0.4 MG Cap.ER PO SCH (08:36)
[2019-03-07] MEDS: Formoterol/Mometasone 200-5 MCG 8.8 GM Inhaler IH SCH (08:38)
[2019-03-07] MEDS ORDERED: amLODIPine 5 MG Tab PO SCH (10:00)
--- NOTE | 2019-03-07 10:00 | PCM.PN ---
- General Info Date of Service: 03/07/19 Admission Dx/Problem (Free Text): Admission Diagnosis/Problem Admission Diagnosis/Problem Flank pain Subjective Update: Last night the patient passed and about 5 mm sized stone. She continues to have left sided, sharp flank pain, worse with urination, radiating down to the groin, better with IV pain medication fentanyl. Had no fever. Has associated nausea. No chest pain. Functional Status: Denies: Tolerating Diet (Nausea) - Review of Systems General: Denies: Fever Pulmonary: Denies: Shortness of Breath Cardiovascular: Denies: Chest Pain Genitourinary: Reports: Pain, Flank Pain. Denies: Hematuria, Retention Neurological: Denies: Confusion Psychiatric: Denies: Agitation - Patient Data Vitals - Most Recent: Last Vital Signs Temp 36.5 C 03/07/19 08:49 Pulse 66 03/07/19 08:49 Resp 20 03/07/19 08:49 BP 160/71 H 03/07/19 08:49 Pulse Ox 96 03/07/19 08:49 Weight - Most Recent: 127.732 kg I&O - Last 24 Hours: Intake & Output 03/06/19 03/07/19 03/07/19 22:59 06:59 14:59 Intake Total 1681 1877 600 Output Total 800 1250 425 Balance 881 627 175 Lab Results Last 24 Hours: Laboratory Results - last 24 hr 03/06/19 03/06/19 03/07/19 Range/Units 16:33 21:06 05:35 WBC 16.0 H (5.0-10.0) 10^3/uL RBC 4.51 (4.2-5.4) 10^6/uL Hgb 13.1 D (12.0-16.0) g/dL Hct 38.2 (37.0-47.0) % MCV 84.7 (80-100) fL MCH 29.0 (27.0-34.0) pg MCHC 34.3 (33.0-35.0) g/dL Plt Count 180 (150-450) 10^3/uL Neut % (Auto) 80.2 H (42.2-75.2) % Lymph % (Auto) 9.6 L (20.5-50.1) % Clinch % (Auto) 9.4 H (2-8) % Eos % (Auto) 0.6 L (1.0-3.0) % Baso % (Auto) 0.2 (0.0-1.0) % Sodium (135-145) mmol/L Potassium (3.6-5.0) mmol/L Chloride (101-111) mmol/L Carbon Dioxide (21.0-31.0) mmol/L Anion Gap BUN (7-18) mg/dL Creatinine (0.6-1.3) mg/dL Est Cr Clr Drug Dosing mL/min Estimated GFR (MDRD) Glucose (74-105) mg/dL POC Glucose 156 H 158 H (70-105) mg/dl Calcium (8.4-10.2) mg/dl 03/07/19 03/07/19 Range/Units 05:35 07:44 WBC (5.0-10.0) 10^3/uL RBC (4.2-5.4) 10^6/uL Hgb (12.0-16.0) g/dL Hct (37.0-47.0) % MCV (80-100) fL MCH (27.0-34.0) pg MCHC (33.0-35.0) g/dL Plt Count (150-450) 10^3/uL Neut % (Auto) (42.2-75.2) % Lymph % (Auto) (20.5-50.1) % Clinch % (Auto) (2-8) % Eos % (Auto) (1.0-3.0) % Baso % (Auto) (0.0-1.0) % Sodium 133 L (135-145) mmol/L Potassium 3.8 (3.6-5.0) mmol/L Chloride 99 L (101-111) mmol/L Carbon Dioxide 23.0 (21.0-31.0) mmol/L Anion Gap 14.8 BUN 13 (7-18) mg/dL Creatinine 1.0 (0.6-1.3) mg/dL Est Cr Clr Drug Dosing 49.08 mL/min Estimated GFR (MDRD) 56 Glucose 166 H (74-105) mg/dL POC Glucose 147 H (70-105) mg/dl Calcium 8.9 (8.4-10.2) mg/dl Ned Results Last 24 Hours: Microbiology 03/06/19 08:35 Aerobic Blood Culture - Preliminary Blood NO GROWTH AFTER 1 DAY Anaerobic Blood Culture - Preliminary NO GROWTH AFTER 1 DAY Med Orders - Current: Current Medications Albuterol/Ipratropium (Duoneb 3.0-0.5 Mg/3 Ml) 3 ml INH Q4H PRN PRN Reason: Shortness of Breath Cyclobenzaprine HCl (Flexeril) 10 mg PO BEDTIME [facility] Last Admin: 03/06/19 22:06 Dose: 10 mg Dextrose/Water (Dextrose 50% In Water) 25 ml IVPUSH Q1H PRN PRN Reason: blood sugar <70 Fentanyl (Sublimaze) 25 mcg IVPUSH Q1H PRN PRN Reason: severe pain Last Admin: 03/07/19 08:24 Dose: 25 mcg Heparin Sodium (Porcine) (Heparin Sodium) 5,000 units SUBCUT Q8HR [facility] Last Admin: 03/07/19 06:08 Dose: 5,000 units Ceftriaxone Sodium 1 gm/ (Sodium Chloride) 50 mls @ 50 mls/hr IV Q24H [facility] Potassium Chloride/Sodium Chloride (Normal Saline With 20 Meq Kcl) 1,000 mls @ 75 mls/hr IV ASDIRECTED [facility] Last Admin: 03/07/19 05:57 Dose: 125 mls/hr Insulin Human Lispro (Humalog) 0 unit SUBCUT ACBED [facility]; Protocol Last Admin: 03/07/19 08:31 Dose: Not Given Levothyroxine Sodium (Levothyroxine) 225 mcg PO ACBREAKFAST [facility] Last Admin: 03/07/19 06:15 Dose: 225 mcg Mometasone Furoate/Formoterol Fumar (Dulera 200-5 Mcg) 2 puff IH BID [facility] Last Admin: 03/07/19 08:38 Dose: 2 puff Naloxone HCl (Narcan) 0.4 mg IVPUSH Q2M PRN PRN Reason: respiratory distress Ondansetron HCl (Zofran Odt) 4 mg PO Q4H PRN PRN Reason: nausea, able to take PO Ondansetron HCl (Zofran) 4 mg IVPUSH Q6H PRN PRN Reason: Nausea/Vomiting Last Admin: 03/07/19 07:57 Dose: 4 mg Oxycodone HCl (Oxycodone) 5 mg PO Q4H PRN PRN Reason: moderate pain Sodium Chloride (Saline Flush) 10 ml FLUSH ASDIRECTED PRN PRN Reason: Keep Vein Open Last Admin: 03/06/19 08:53 Dose: 10 ml Tamsulosin HCl (Flomax) 0.4 mg PO DAILY [facility] Last Admin: 03/07/19 08:36 Dose: 0.4 mg Discontinued Medications Cyclobenzaprine HCl (Flexeril) 10 mg PO TID JAIME Diphenhydramine HCl (Benadryl) 25 mg IVPUSH ONETIME ONE Stop: 03/06/19 08:48 Last Admin: 03/06/19 08:52 Dose: 25 mg Fentanyl (Sublimaze) 100 mcg IVPUSH ONETIME ONE Stop: 03/06/19 08:48 Last Admin: 03/06/19 08:52 Dose: 100 mcg Fentanyl (Sublimaze) 50 mcg IVPUSH ONETIME ONE Stop: 03/06/19 10:23 Last Admin: 03/06/19 10:27 Dose: 50 mcg Fentanyl (Sublimaze) 25 mcg IVPUSH ONETIME ONE Stop: 03/06/19 12:34 Last Admin: 03/06/19 12:58 Dose: 25 mcg Fentanyl Citrate (Fentanyl In Ns 20 Mcg/Ml 30 Ml Extension Course Counselor) 0 mcg IV ASDIRECTED [facility]; Protocol Ceftriaxone Sodium 2 gm/ (Sodium Chloride) 100 mls @ 200 mls/hr IV ONETIME ONE Stop: 03/06/19 10:51 Last Admin: 03/06/19 10:30 Dose: 200 mls/hr Ketorolac Tromethamine (Toradol) 30 mg IVPUSH ONETIME ONE Stop: 03/06/19 14:01 Last Admin: 03/06/19 14:02 Dose: 30 mg Ondansetron HCl (Zofran) 4 mg IV ONETIME ONE Stop: 03/06/19 08:47 Last Admin: 03/06/19 08:52 Dose: 4 mg Ondansetron HCl (Zofran) 4 mg IV ONETIME ONE Stop: 03/06/19 10:22 Last Admin: 03/06/19 10:27 Dose: 4 mg - Exam General: Alert, Oriented Neck: Supple Lungs: Clear to Auscultation, Normal Respiratory Effort Cardiovascular: Regular Rate, Regular Rhythm GI/Abdominal Exam: Normal Bowel Sounds, Soft, Tender (Left flank area) Extremities: No Pedal Edema Skin: Warm, Dry Psy/Mental Status: Alert, Normal Affect, Normal Mood - Problem List & Annotations (1) Flank pain SNOMED Code(s): 234557741 Code(s): R10.9 - UNSPECIFIED ABDOMINAL PAIN Status: Acute Current Visit: No (2) Hydronephrosis due to obstruction of ureter SNOMED Code(s): 678381811 Code(s): N13.2 - HYDRONEPHROSIS WITH RENAL AND URETERAL CALCULOUS OBSTRUCTION Status: Acute Current Visit: No (3) Left ureteral calculus SNOMED Code(s): 83207784 Code(s): N20.1 - CALCULUS OF URETER Status: Acute Current Visit: No - Problem List Review Problem List Initiated/Reviewed/Updated: Yes - My Orders Last 24 Hours: My Active Orders 03/06/19 12:16 Pulse Oximetry [RC] CONTINUOUS Naloxone [Narcan] 0.4 mg IVPUSH Q2M PRN 03/06/19 12:21 Albuterol/Ipratropium [DuoNeb 3.0-0.5 MG/3 ML] 3 ml INH Q4H PRN 03/06/19 12:30 Tamsulosin [Flomax] 0.4 mg PO DAILY 03/06/19 12:33 Up With Assistance [RC] ASDIRECTED Ondansetron [Zofran ODT] 4 mg PO Q4H PRN Ondansetron [Zofran] 4 mg IVPUSH Q6H PRN Resuscitation Status Routine 03/06/19 12:34 Patient Status [ADT] Routine Oxygen Therapy [RC] .PRN VTE/DVT Education [RC] PER UNIT ROUTINE Vital Signs [RC] 00,04,08,12,16,20 03/06/19 12:35 Antiembolic Devices [RC] 09,21 Antiembolic Hose [OM.PC] Per Unit Routine 03/06/19 12:44 Glucose [Blood Glucose Check, Bedside] [RC] 0730,1130,1630,21 Dextrose 50% in Water 25 ml IVPUSH Q1H PRN 03/06/19 13:15 NS + KCl 20mEq/L [Normal Saline with 20 mEq KCl] 1,000 ml IV ASDIRECTED 03/06/19 13:17 fentaNYL [Sublimaze] 25 mcg IVPUSH Q1H PRN 03/06/19 13:18 oxyCODONE 5 mg PO Q4H PRN 03/06/19 17:00 Insulin Lispro [HumaLOG] See Protocol SUBCUT ACBED 03/06/19 21:00 Cyclobenzaprine [Flexeril] 10 mg PO BEDTIME Mometasone/Formoterol [Dulera 200-5 MCG] 2 puff IH BID 03/06/19 22:00 Heparin Sodium 5,000 units SUBCUT Q8HR 03/06/19 Dinner General [Regular Diet] [DIET] 03/07/19 06:00 Levothyroxine 225 mcg PO ACBREAKFAST 03/07/19 09:52 VL Duplex Renal Comp [US] Routine 03/07/19 10:00 amLODIPine [Norvasc] 2.5 mg PO DAILY 03/07/19 12:30 cefTRIAXone [Rocephin] 1 gm Sodium Chloride 0.9% [Normal Saline] 50 ml IV Q24H - Plan Plan:: 63-year-old with a history of COPD, recurrent left-sided nephrolithiasis. The patient presented with symptoms of left ureteral stone causing severe hydronephrosis seen on CT. It appears that the patient passed the stone. We will obtain an ultrasound to evaluate for retention of stone and status of hydronephrosis. For pain control continue IV fentanyl as needed Treat with tamsulosin If stone is still present and hydronephrosis is still present we'll consider transferring to [facility] urology evaluation. If it seems that she passed a stone we 'll continue to monitor. Evaluate for possible urinary tract infection The patient was noted to have low-grade temperature up to 37.5, further elevated white blood cell count Blood culture, urine culture pending Treat the patient with Rocephin for now COPD No acute exacerbation Continue inhalers Hyperglycemia noted Blood sugars are consistently elevated We'll follow blood sugars She will need to follow-up as outpatient, likely has diabetes Hypertension Start low-dose Norvasc We'll follow and adjust as needed DVT prophylaxis with subcutaneous heparin Discussed with the emergency room physician Dr. Strong
[2019-03-07] MEDS ORDERED: cefTRIAXone 1 GM in Sodium Chloride 0.9% 50 ML IV SCH (12:30)
[2019-03-07] MEDS ORDERED: Albuterol/Ipratropium 3.0-0.5 MG/3 ML Neb Soln INH PRN (12:45)
--- NOTE | 2019-03-07 15:24 | US ---
Clinical history: 33-year-old 63-year-old female hospitalized with "left lower quadrant pain that radiates to the left groin". This patient reported on CT exam 06 March 2019 to have "multiple left-sided renal calculi and a 5-6 mm calculus mid left ureter with associated left-sided hydroureteronephrosis." Follow-up please. Interpretation: 1. Pronounced asymmetric dilatation of the left renal pelvis/calyces ("shadowing" calyceal calcifications left kidney) and no demonstrable left ureteral "jets" consistent with persistent high grade left ureteral obstruction. 2. Good renal hilar blood flow bilaterally. Normal ureteral "jet" urinary bladder, on the right, and no sign of right pyelocaliectasis. 3. No clear evidence of ureterectasis on the left this patient who reportedly "passed" a kidney stone recently. 4. No cystic or solid renal cortical mass lesion. CONCLUSION: Abnormal. Nephrolithiasis left kidney. Persistent (residual?) evidence high grade obstructive uropathy, left kidney.
--- NOTE | 2019-03-07 16:43 | PCM.DCSUM1 ---
Discharge Summary - Hospital Course Free Text/Narrative:: 63-year-old with a history of COPD, recurrent left-sided nephrolithiasis. The patient presented with symptoms of left ureteral stone causing severe hydronephrosis seen on CT. admitted on 03/06/19 overnight she passed a 3-5 mm stone. For pain control used IV fentanyl as needed Treated with tamsulosin We obtained an ultrasound - it continued to show hydronephrosis and no ureteral jets on the left side pain continued transfer to [facility] for further urology eval Evaluate for possible urinary tract infection The patient was noted to have low-grade temperature up to 37.5, further elevated white blood cell count Blood culture, urine culture pending Treated the patient with Rocephin for now COPD No acute exacerbation Continue inhalers Hyperglycemia noted Blood sugars were consistently elevated She will need to follow-up as outpatient, likely has diabetes Hypertension Started low-dose Norvasc We'll follow and adjust as needed Diagnosis: Stroke: No - Discharge Data Discharge Date: 03/07/19 Discharge Disposition: DC/Tfer to Acute Hospital 02 Condition: Good - Discharge Diagnosis/Problem(s) (1) Flank pain SNOMED Code(s): 802491812 ICD Code: R10.9 - UNSPECIFIED ABDOMINAL PAIN Status: Acute Current Visit : No (2) Hydronephrosis due to obstruction of ureter SNOMED Code(s): 184075476 ICD Code: N13.2 - HYDRONEPHROSIS WITH RENAL AND URETERAL CALCULOUS OBSTRUCTION Status: Acute Current Visit: No (3) Left ureteral calculus SNOMED Code(s): 37624519 ICD Code: N20.1 - CALCULUS OF URETER Status: Acute Current Visit: No - Patient Instructions Diet: Heart Healthy Diet - Discharge Plan *PRESCRIPTION DRUG MONITORING PROGRAM REVIEWED*: No *COPY OF PRESCRIPTION DRUG MONITORING REPORT IN PATIENT PAUL: No Home Medications: Home Meds Albuterol [Ventolin HFA] 2 puff INH Q4H PRN 05/28/15 [History] Fluticasone/Salmeterol [Advair Diskus 250-50] 1 puff INH BID 05/28/15 [History] Acetaminophen 1,000 mg PO Q6H PRN 03/09/18 [History] Cholecalciferol (Vitamin D3) [Vitamin D3] 2,000 units PO DAILY 03/09/18 [History ] Ipratropium/Albuterol Sulfate [IJD: DuoNeb 3.0-0.5 MG/3 ML] 1 vial INH Q4H PRN 03/09/18 [History] Levothyroxine 225 mcg PO DAILY 03/09/18 [History] Cyclobenzaprine [Flexeril] 10 mg PO TID 03/06/19 [History] Tamsulosin HCl [Flomax] 0.4 mg PO DAILY 03/06/19 [History] Gabapentin [Neurontin] 300 mg PO TID 03/07/19 [History] Insulin Lispro [HumaLOG] 0 unit SUBCUT ACBED vial 03/07/19 [Rx] Lisinopril [Prinivil] 20 mg PO DAILY 03/07/19 [History] Ondansetron [Zofran ODT] 4 mg PO Q8HR PRN 03/07/19 [History] Oxybutynin Chloride [Ditropan Xl] 5 mg PO TID 03/07/19 [History] amLODIPine [Norvasc] 10 mg PO DAILY 03/07/19 [History] cefTRIAXone [Rocephin] 1 gm IV Q24H adv 03/07/19 [Rx] - Discharge Summary/Plan Comment DC Time >30 min.: Yes (arranging transfer, d/w accepting MD dr. Miranda) - General Info Date of Service: 03/07/19 Functional Status: Reports: Pain Controlled (with IV fentanyl) - Review of Systems General: Reports: Fever (low grade) Pulmonary: Denies: Shortness of Breath Cardiovascular: Denies: Chest Pain Gastrointestinal: Denies: Abdominal Pain Genitourinary: Reports: Flank Pain - Patient Data Vitals - Most Recent: Last Vital Signs Temp 37.5 C 03/07/19 15:39 Pulse 64 03/07/19 15:39 Resp 20 03/07/19 15:39 BP 144/57 H 03/07/19 15:39 Pulse Ox 97 03/07/19 15:39 Weight - Most Recent: 127.732 kg I&O - Last 24 hours: Intake & Output 03/07/19 03/07/19 03/07/19 06:59 14:59 22:59 Intake Total 5451 836 0730 Output Total 1250 4655 400 Balance 627 -1728 886 Lab Results - Last 24 hrs: Laboratory Results - last 24 hr 03/06/19 03/06/19 03/07/19 Range/Units 16:33 21:06 05:35 WBC 16.0 H (5.0-10.0) 10^3/uL RBC 4.51 (4.2-5.4) 10^6/uL Hgb 13.1 D (12.0-16.0) g/dL Hct 38.2 (37.0-47.0) % MCV 84.7 (80-100) fL MCH 29.0 (27.0-34.0) pg MCHC 34.3 (33.0-35.0) g/dL Plt Count 180 (150-450) 10^3/uL Neut % (Auto) 80.2 H (42.2-75.2) % Lymph % (Auto) 9.6 L (20.5-50.1) % [place] % (Auto) 9.4 H (2-8) % Eos % (Auto) 0.6 L (1.0-3.0) % Baso % (Auto) 0.2 (0.0-1.0) % Sodium (135-145) mmol/L Potassium (3.6-5.0) mmol/L Chloride (101-111) mmol/L Carbon Dioxide (21.0-31.0) mmol/L Anion Gap BUN (7-18) mg/dL Creatinine (0.6-1.3) mg/dL Est Cr Clr Drug Dosing mL/min Estimated GFR (MDRD) Glucose (74-105) mg/dL POC Glucose 156 H 158 H (70-105) mg/dl Calcium (8.4-10.2) mg/dl 03/07/19 03/07/19 03/07/19 Range/Units 05:35 07:44 11:26 WBC (5.0-10.0) 10^3/uL RBC (4.2-5.4) 10^6/uL Hgb (12.0-16.0) g/dL Hct (37.0-47.0) % MCV (80-100) fL MCH (27.0-34.0) pg MCHC (33.0-35.0) g/dL Plt Count (150-450) 10^3/uL Neut % (Auto) (42.2-75.2) % Lymph % (Auto) (20.5-50.1) % [place] % (Auto) (2-8) % Eos % (Auto) (1.0-3.0) % Baso % (Auto) (0.0-1.0) % Sodium 133 L (135-145) mmol/L Potassium 3.8 (3.6-5.0) mmol/L Chloride 99 L (101-111) mmol/L Carbon Dioxide 23.0 (21.0-31.0) mmol/L Anion Gap 14.8 BUN 13 (7-18) mg/dL Creatinine 1.0 (0.6-1.3) mg/dL Est Cr Clr Drug Dosing 49.08 mL/min Estimated GFR (MDRD) 56 Glucose 166 H (74-105) mg/dL POC Glucose 147 H 173 H (70-105) mg/dl Calcium 8.9 (8.4-10.2) mg/dl NEHAL Results - Last 24 hrs: Microbiology 03/06/19 08:35 Aerobic Blood Culture - Preliminary Blood NO GROWTH AFTER 1 DAY Anaerobic Blood Culture - Preliminary NO GROWTH AFTER 1 DAY Med Orders - Current: Current Medications Albuterol/Ipratropium (Duoneb 3.0-0.5 Mg/3 Ml) 3 ml INH Q4HR PRN PRN Reason: Shortness of Breath Amlodipine Besylate (Norvasc) 2.5 mg PO DAILY [facility] Last Admin: 03/07/19 11:29 Dose: 2.5 mg Cyclobenzaprine HCl (Flexeril) 10 mg PO BEDTIME [facility] Last Admin: 03/06/19 22:06 Dose: 10 mg Dextrose/Water (Dextrose 50% In Water) 25 ml IVPUSH Q1H PRN PRN Reason: blood sugar <70 Fentanyl (Sublimaze) 25 mcg IVPUSH Q1H PRN PRN Reason: severe pain Last Admin: 03/07/19 14:04 Dose: 25 mcg Heparin Sodium (Porcine) (Heparin Sodium) 5,000 units SUBCUT Q8HR [facility] Last Admin: 03/07/19 13:14 Dose: 5,000 units Ceftriaxone Sodium 1 gm/ (Sodium Chloride) 50 mls @ 50 mls/hr IV Q24H [facility] Last Admin: 03/07/19 11:54 Dose: 50 mls/hr Potassium Chloride/Sodium Chloride (Normal Saline With 20 Meq Kcl) 1,000 mls @ 75 mls/hr IV ASDIRECTED [facility] Last Admin: 03/07/19 14:36 Dose: 125 mls/hr Insulin Human Lispro (Humalog) 0 unit SUBCUT ACBED [facility]; Protocol Last Admin: 03/07/19 12:21 Dose: 1 unit Levothyroxine Sodium (Levothyroxine) 225 mcg PO ACBREAKFAST [facility] Last Admin: 03/07/19 06:15 Dose: 225 mcg Mometasone Furoate/Formoterol Fumar (Dulera 200-5 Mcg) 2 puff IH BID [facility] Last Admin: 03/07/19 08:38 Dose: 2 puff Naloxone HCl (Narcan) 0.4 mg IVPUSH Q2M PRN PRN Reason: respiratory distress Ondansetron HCl (Zofran Odt) 4 mg PO Q4H PRN PRN Reason: nausea, able to take PO Ondansetron HCl (Zofran) 4 mg IVPUSH Q6H PRN PRN Reason: Nausea/Vomiting Last Admin: 03/07/19 07:57 Dose: 4 mg Oxycodone HCl (Oxycodone) 5 mg PO Q4H PRN PRN Reason: moderate pain Sodium Chloride (Saline Flush) 10 ml FLUSH ASDIRECTED PRN PRN Reason: Keep Vein Open Last Admin: 03/06/19 08:53 Dose: 10 ml Tamsulosin HCl (Flomax) 0.4 mg PO DAILY [facility] Last Admin: 03/07/19 08:36 Dose: 0.4 mg Discontinued Medications Albuterol/Ipratropium (Duoneb 3.0-0.5 Mg/3 Ml) 3 ml INH Q4H PRN PRN Reason: Shortness of Breath Cyclobenzaprine HCl (Flexeril) 10 mg PO TID [facility] Diphenhydramine HCl (Benadryl) 25 mg IVPUSH ONETIME ONE Stop: 03/06/19 08:48 Last Admin: 03/06/19 08:52 Dose: 25 mg Fentanyl (Sublimaze) 100 mcg IVPUSH ONETIME ONE Stop: 03/06/19 08:48 Last Admin: 03/06/19 08:52 Dose: 100 mcg Fentanyl (Sublimaze) 50 mcg IVPUSH ONETIME ONE Stop: 03/06/19 10:23 Last Admin: 03/06/19 10:27 Dose: 50 mcg Fentanyl (Sublimaze) 25 mcg IVPUSH ONETIME ONE Stop: 03/06/19 12:34 Last Admin: 03/06/19 12:58 Dose: 25 mcg Fentanyl Citrate (Fentanyl In Ns 20 Mcg/Ml 30 Ml Tax Director) 0 mcg IV ASDIRECTED JAIME; Protocol Ceftriaxone Sodium 2 gm/ (Sodium Chloride) 100 mls @ 200 mls/hr IV ONETIME ONE Stop: 03/06/19 10:51 Last Admin: 03/06/19 10:30 Dose: 200 mls/hr Ketorolac Tromethamine (Toradol) 30 mg IVPUSH ONETIME ONE Stop: 03/06/19 14:01 Last Admin: 03/06/19 14:02 Dose: 30 mg Ondansetron HCl (Zofran) 4 mg IV ONETIME ONE Stop: 03/06/19 08:47 Last Admin: 03/06/19 08:52 Dose: 4 mg Ondansetron HCl (Zofran) 4 mg IV ONETIME ONE Stop: 03/06/19 10:22 Last Admin: 03/06/19 10:27 Dose: 4 mg - Exam General: Reports: Alert, Oriented Neck: Reports: Supple Lungs: Reports: Clear to Auscultation, Normal Respiratory Effort Cardiovascular: Reports: Regular Rate, Regular Rhythm GI/Abdominal Exam: Normal Bowel Sounds, Soft, Tender (left flank) Extremities: No Pedal Edema
[2019-03-07 20:08] VITALS: BP 153/73
== END 2019-03-07 17:03 ==
LOC: DL.ED 08:19 → DL.MS 11:44 → UNDOADMOB 11:44 → DL.MS 12:34
PROVIDERS: ADMIT Internal Medicine; ATTEND Internal Medicine
DX: N13.2 Hydronephrosis with renal and ureteral calculous obstruction (principal); N39.0 Urinary tract infection, site not specified; J44.9 Chronic obstructive pulmonary disease, unspecified; R73.9 Hyperglycemia, unspecified; I10 Essential (primary) hypertension; E03.9 Hypothyroidism, unspecified; E66.9 Obesity, unspecified; Z68.42 Body mass index [BMI] 45.0-49.9, adult; G47.30 Sleep apnea, unspecified; M85.80 Other specified disorders of bone density and structure, unspecified site; E78.00 Pure hypercholesterolemia, unspecified; Z79.2 Long term (current) use of antibiotics; Z79.899 Other long term (current) drug therapy; Z88.2 Allergy status to sulfonamides; Z88.5 Allergy status to narcotic agent; Z88.6 Allergy status to analgesic agent
CPT/HCPCS: 36415; 74176; 76770; 80048; 80053; 81001; 82150; 82962; 83605; 83690; 85025; 86140; 87040; 87086; 96361; 96365; 96366; 96372; 96375; 96376; 99285; A9270; G0378; J0696; J1200; J1644; J1815; J1885; J2405; J3010; J3480; J7050

== ENCOUNTER 2019-05-09 14:53 | Emergency (ER) | payer MEDICARE, MEDICAID ==
[2019-05-09] MEDS ORDERED: Sodium Chloride 0.9% 10 ML Syringe FLUSH PRN (15:00)
[2019-05-09] MEDS ORDERED: fentaNYL 100 MCG/2 ML SDV IVPUSH ONE (15:02)
[2019-05-09] MEDS ORDERED: Sodium Chloride 0.9% 1,000 ML IV ONE (15:02)
[2019-05-09] MEDS ORDERED: Ondansetron 4 MG/2 ML SDV IV ONE (15:02)
--- NOTE | 2019-05-09 15:02 | EDM.PDOC ---
"ED HPI GENERAL MEDICAL PROBLEM - General Chief Complaint: Genitourinary Problem Stated Complaint: FEVER, PAIN ON LEFT SIDE [id number] Time Seen by Provider: 05/09/19 15:02 Source of Information: Reports: Patient, RN, RN Notes Reviewed History Limitations: Reports: No Limitations - History of Present Illness INITIAL COMMENTS - FREE TEXT/NARRATIVE: Pt presents to ER from home by POV with c/o onset of left flank pain radiating to the LLQ/groin. Pt admits to nausea, fever sensations, and chills x3 days. Pt states the symptoms are very similar to previous kidney stones. Pt reports that she called Dr. Thomas, her urologist and was instructed to come to the ER for evaluation of her symptoms. Onset: Gradual Duration: Recurring, Waxing/Waning Location: Reports: Abdomen (Left flank) Quality: Reports: Same as Previous Episode Severity: Severe Improves with: Reports: None Worsens with: Reports: None Associated Symptoms: Reports: No Other Symptoms Treatments NURSING ADMINISTRATOR: Reports: Other (see below) Left Mid-Posterior Abdomen Pain Score (Numeric/FACES): 8 - Related Data Allergies Allergy/AdvReac Type Severity Reaction Status Date / Time morphine Allergy Rash Verified 05/09/19 15:03 sulfamethoxazole Allergy Dizziness Verified 05/09/19 15:03 [From Bactrim] trimethoprim [From Bactrim] Allergy Dizziness Verified 05/09/19 15:03 hydrocodone bitartrate AdvReac Stomach Verified 05/09/19 15:03 [From Vicodin] Upset NSAIDS (Non-Steroidal AdvReac Nausea Verified 05/09/19 15:03 Anti-Inflamma Home Meds: Home Meds Albuterol [Ventolin HFA] 2 puff INH Q4H PRN 05/28/15 [History] Fluticasone/Salmeterol [Advair Diskus 250-50] 1 puff INH BID 05/28/15 [History] Acetaminophen 1,000 mg PO Q6H PRN 03/09/18 [History] Cholecalciferol (Vitamin D3) [Vitamin D3] 2,000 units PO DAILY 03/09/18 [History ] Ipratropium/Albuterol Sulfate [IJD: DuoNeb 3.0-0.5 MG/3 ML] 1 vial INH Q4H PRN 03/09/18 [History] Levothyroxine 225 mcg PO DAILY 03/09/18 [History] Cyclobenzaprine [Flexeril] 10 mg PO TID 03/06/19 [History] Tamsulosin HCl [Flomax] 0.4 mg PO DAILY 03/06/19 [History] Gabapentin [Neurontin] 300 mg PO TID 03/07/19 [History] Insulin Lispro [HumaLOG] 0 unit SUBCUT ACBED vial 03/07/19 [Rx] Lisinopril [Prinivil] 20 mg PO DAILY 03/07/19 [History] Ondansetron [Zofran ODT] 4 mg PO Q8HR PRN 03/07/19 [History] Oxybutynin Chloride [Ditropan Xl] 5 mg PO TID 03/07/19 [History] amLODIPine [Norvasc] 10 mg PO DAILY 03/07/19 [History] cefTRIAXone [Rocephin] 1 gm IV Q24H adv 03/07/19 [Rx] Past Medical History HEENT History: Reports: Impaired Vision, Other (See Below) Other HEENT History: UPPER DENTURE, BOTTOM PARTIAL DENTURE, wears glasses Cardiovascular History: Reports: High Cholesterol, Hypertension Respiratory History: Reports: COPD, Intubation, Previous, Sleep Apnea, SOB Gastrointestinal History: Reports: Diverticulosis Genitourinary History: Reports: Chronic Renal Insuffiency, Hydronephrosis, Renal Calculus, UTI, Recurrent OUTREACH DIRECTOR History: 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 BILAT CARPAL TUNNEL SYNDROME Neurological History: Reports: Concussion Psychiatric History: Reports: Mood Swings Endocrine/Metabolic History: Reports: Hypothyroidism, Obesity/BMI 30+, Osteopenia, Vitamin D Deficiency Hematologic History: Reports: None Immunologic History: Reports: None Oncologic (Cancer) History: Reports: None Dermatologic History: Reports: None - Infectious Disease History Infectious Disease History: Reports: Chicken Pox, Measles, Mumps, TB Other Infectious Disease History: doesnt have TB but will test positive - Past Surgical History Head Surgeries/Procedures: Reports: None Cardiovascular Surgical History: Reports: Other (See Below) Other Cardiovascular Surgeries/Procedures: cardiac cath - PATIENT DENIES CARDIAC CATH 03/09/18. ELECTROCARDIOGRAM Respiratory Surgical History: Reports: None GI Surgical History: Reports: Appendectomy, Cholecystectomy, Colonoscopy, Hernia , Inguinal, Other (See Below) Other GI Surgeries/Procedures: DENIES INGUINAL HERNIA REPAIR 03/09/18 Female Surgical History: Reports: Hysterectomy, Lithotripsy/ESWL, Tubal Ligation, Ureteral Stent Endocrine Surgical History: Reports: None Neurological Surgical History: Reports: C-Spine Musculoskeletal Surgical History: Reports: Arthroscopic Knee, Carpal Tunnel, Joint Replacement Other Musculoskeletal Surgeries/Procedures:: TOTAL R) knee surg, RIGHT & LEFT ( DENIES LEFT CARPAL TUNNEL RELEASE 03/09/18)carpal tunnel, neck surg Oncologic Surgical History: Reports: None Dermatological Surgical History: Reports: None Social & Family History - Family History Family Medical History: Noncontributory - Caffeine Use Caffeine Use: Reports: Coffee Other Caffeine Use: 1 CUP DAILY - Living Situation & Occupation Living situation: Reports: Extended Care Facility ED ROS GENERAL - Review of Systems Review Of Systems: ROS reveals no pertinent complaints other than HPI. ED EXAM, RENAL/ - Physical Exam Exam: See Below Exam Limited By: No Limitations General Appearance: Alert, No Apparent Distress, Obese, Other (Uncomfortable, but non-toxic appearing) Throat/Mouth: Normal Inspection, Normal Voice, No Airway Compromise Head: Atraumatic, Normocephalic Neck: Normal Inspection Respiratory/Chest: No Respiratory Distress, Lungs Clear, Normal Breath Sounds, No Accessory Muscle Use, Chest Non-Tender Cardiovascular: Regular Rate, Rhythm GI/Abdominal: Normal Bowel Sounds, Soft, Non-Tender, No Distention, No Abnormal Bruit (Female) Exam: Deferred Rectal (Female) Exam: Deferred Back Exam: Full Range of Motion, CVA Tenderness (L) (mild). No: CVA Tenderness (R), Decreased Range of Motion, Paraspinal Tenderness Extremities: Normal Inspection Neurological: Alert, Oriented, No Motor/Sensory Deficits Psychiatric: Normal Mood Skin Exam: Warm, Dry, Intact, Normal Color, No Rash Course - Vital Signs Last Recorded V/S: Last Vital Signs Temp 95.6 F 05/09/19 15:00 Pulse 77 05/09/19 15:00 Resp 16 05/09/19 15:00 BP 167/87 H 05/09/19 15:00 Pulse Ox 98 05/09/19 15:00 - Orders/Labs/Meds Orders: Active Orders 24 hr Category Date Time Status Peripheral IV Care [RC] . DIRECTED Care 05/09/19 15:00 Active Abdomen Pelvis wo Cont [CT] Urgent Exams 05/09/19 15:06 Taken CULTURE URINE [RM] Stat Lab 05/09/19 16:00 Received Sodium Chloride 0.9% [Saline Flush] Med 05/09/19 15:00 Active 10 ml FLUSH ASDIRECTED PRN Peripheral IV Insertion Adult [OM.PC] Stat Oth 05/09/19 15:00 Ordered Medication Orders Sodium Chloride (Saline Flush) 10 ml FLUSH ASDIRECTED PRN PRN Reason: Keep Vein Open Last Admin: 05/09/19 15:12 Dose: 10 ml Labs: Laboratory Tests 05/09/19 05/09/19 05/09/19 Range/Units 15:06 15:06 16:00 WBC 11.8 H (5.0-10.0) 10^3/uL RBC 5.12 (4.2-5.4) 10^6/uL Hgb 15.1 D (12.0-16.0) g/dL Hct 44.0 (37.0-47.0) % MCV 85.9 (80-100) fL MCH 29.5 (27.0-34.0) pg MCHC 34.3 (33.0-35.0) g/dL Plt Count 244 (150-450) 10^3/uL Neut % (Auto) 60.5 (42.2-75.2) % Lymph % (Auto) 29.1 (20.5-50.1) % [place] % (Auto) 7.0 (2-8) % Eos % (Auto) 3.1 H (1.0-3.0) % Baso % (Auto) 0.3 (0.0-1.0) % Sodium 133 L (135-145) mmol/L Potassium 3.2 L (3.6-5.0) mmol/L Chloride 96 L (101-111) mmol/L Carbon Dioxide 25.0 (21.0-31.0) mmol/L Anion Gap 15.2 BUN 16 (7-18) mg/dL Creatinine 1.0 (0.6-1.3) mg/dL Est Cr Clr Drug Dosing 49.08 mL/min Estimated GFR (MDRD) 56 BUN/Creatinine Ratio 16.00 Glucose 209 H (74-105) mg/dL Calcium 8.8 (8.4-10.2) mg/dl Total Bilirubin 0.5 (0.2-1.0) mg/dL AST 23 (10-42) IU/L ALT 22 (10-60) IU/L Alkaline Phosphatase 74 (42-121) IU/L Total Protein 7.8 (6.7-8.2) g/dl Albumin 4.1 (3.2-5.5) g/dl Globulin 3.7 Albumin/Globulin Ratio 1.11 Urine Color Yellow (YELLOW) Urine Appearance Slightly cloudy (CLEAR) Urine pH 5.5 (5.0-9.0) Ur Specific [place] 1.025 (1.005-1.030) Urine Protein 30 H (NEGATIVE) Urine Glucose (UA) Negative (NEGATIVE) Urine Ketones Negative (NEGATIVE) Urine Occult Blood Trace-intact H (NEGATIVE) Urine Nitrite Negative (NEGATIVE) Urine Bilirubin Negative (NEGATIVE) Urine Urobilinogen 0.2 (0.2-1.0) mg/dL Ur Leukocyte Esterase Trace H (NEGATIVE) Urine RBC 5-10 H /HPF Urine WBC 5-10 H (0-5/HPF) /HPF Ur Epithelial Cells Few (NOT SEEN) /HPF Amorphous Sediment Few (NOT SEEN) /HPF Urine Bacteria Few (0-FEW/HPF) /HPF Hyaline Casts Few H (NOT SEEN) /LPF Urine Mucus Moderate H (NOT SEEN) /LPF Meds: Medications Generic Name Dose Route Start Last Admin Trade Name Roberto PRN Reason Stop Dose Admin Sodium Chloride 10 ml 05/09/19 15:00 05/09/19 15:12 Saline Flush FLUSH 10 ml ASDIRECTED PRN Administration Keep Vein Open Discontinued Medications Generic Name Dose Route Start Last Admin Trade Name Roberto PRN Reason Stop Dose Admin Fentanyl 25 mcg 05/09/19 15:02 05/09/19 15:11 Sublimaze IVPUSH 05/09/19 15:03 25 mcg ONETIME ONE Administration Sodium Chloride 1,000 mls @ 999 mls/hr 05/09/19 15:02 05/09/19 15:11 Normal Saline IV 05/09/19 16:02 999 mls/hr .BOLUS ONE Administration Ondansetron HCl 4 mg 05/09/19 15:02 05/09/19 15:11 Zofran IV 05/09/19 15:03 4 mg ONETIME ONE Administration - Radiology Interpretation Free Text/Narrative:: [facility] [place] [facility] Final Radiology Report Call: [phone] assistance Online chat: [email or web address] Name: JUSTINA CANO Age: 63Years F Date: 05/09/2019 SSN: -- : [id number] Study: CT ABDOMEN/PELVIS WO Requesting Physician: MICHAEL EUBANKS Images: 400 Addl Studies: Provided Clinical History: Hx kidney stones Contrast: Without Contrast Medium: Contrast Amount: Contrast Method: Page 1 of 2 EXAM: CT Abdomen and Pelvis Without Contrast EXAM DATE/TIME: 05/09/2019 3:34 PM CLINICAL HISTORY: 63 years old, female; Abdominal pain; Flank; Left; Prior surgery; Surgery date: 6+ months; Surgery type: Gallbladder removed, appendix removed, hysterectomy; Additional info: HX kidney stones TECHNIQUE: Imaging protocol: Axial computed tomography images of the abdomen and pelvis without contrast. Coronal and sagittal reformatted images were created and reviewed. Radiation optimization: All CT scans at this facility use at least one of these dose optimization techniques: automated exposure control; mA and/or kV adjustment per patient size (includes targeted exams where dose is matched to clinical indication); or iterative reconstruction. COMPARISON: No relevant prior studies available. FINDINGS: ABDOMEN: Liver: There is a diffuse decrease in hepatic parenchymal density, consistent with fatty infiltration. Calcified hepatic granuloma. Gallbladder and bile ducts: There has been a cholecystectomy. Pancreas: Normal. No ductal dilation. Spleen: Calcified splenic granuloma. Adrenals: Normal. No mass. JUSTINA CANO | Final Radiology Report CONFIDENTIALITY STATEMENT This report is intended only for use by the referring physician, and only in accordance with law. If you received this in error, call [phone]. Page 2 of 2 Kidneys and ureters: Nonobstructive renal calculi on the left measure up to 5 mm. Mild hydronephrosis on the left without obstructive etiology. Mild thickening of the wall of the renal pelvis and calyces. Findings may related to recent passage of a calculus or indicate uroepithelial infection. Stomach and bowel: Normal. No obstruction. No mucosal thickening. Appendix: No evidence of appendicitis. PELVIS: Bladder: Unremarkable as visualized. Reproductive: Unremarkable as visualized. ABDOMEN and PELVIS: Intraperitoneal space: Normal. No free air. No significant fluid collection. Bones/joints: No acute fracture. No dislocation. Soft tissues: Skin thickening and a large pannus in the lower abdomen with subcutaneous inflammatory changes. Findings may indicate the presence of cellulitis injury correlate clinically. Vasculature: Normal. No abdominal aortic aneurysm. Lymph nodes: Normal. No enlarged lymph nodes. IMPRESSION: 1. There is a diffuse decrease in hepatic parenchymal density, consistent with fatty infiltration. 2. There has been a cholecystectomy. 3. Mild hydronephrosis on the left without obstructive etiology. Mild thickening of the wall of the renal pelvis and calyces. Findings may related to recent passage of a calculus or indicate uroepithelial infection. 4. Skin thickening and a large pannus in the lower abdomen with subcutaneous inflammatory changes. Findings may indicate the presence of cellulitis injury correlate clinically. Thank you for allowing us to participate in the care of your patient. Dictated and Authenticated by: Mj Rodríguez MD 05/09/2019 4:01 PM Central Time ([place] & [place]) CT Results Date: 05/09/19 CT Results Time: 16:03 Departure - Departure Time of Disposition: 16:27 Disposition: Home, Self-Care 01 Condition: Good Clinical Impression: Kidney stone on left side, Hydronephrosis of left kidney - Discharge Information *PRESCRIPTION DRUG MONITORING PROGRAM REVIEWED*: No *COPY OF PRESCRIPTION DRUG MONITORING REPORT IN PATIENT PAUL: No Instructions: Renal Colic, [id number], Kidney Stones, Hydronephrosis Forms: ED Department Discharge Additional Instructions: Rx: Cipro 500mg Drink plenty of water. Follow up in urology clinic with Dr. Thomas within the next week. Return to ER if worse at any time. - My Orders Last 24 Hours: My Active Orders 05/09/19 15:00 Peripheral IV Care [RC] . DIRECTED Sodium Chloride 0.9% [Saline Flush] 10 ml FLUSH ASDIRECTED PRN Peripheral IV Insertion Adult [OM.PC] Stat 05/09/19 15:06 Abdomen Pelvis wo Cont [CT] Urgent 05/09/19 16:00 CULTURE URINE [RM] Stat - Assessment/Plan Last 24 Hours: My Active Orders 05/09/19 15:00 Peripheral IV Care [RC] . DIRECTED Sodium Chloride 0.9% [Saline Flush] 10 ml FLUSH ASDIRECTED PRN Peripheral IV Insertion Adult [OM.PC] Stat 05/09/19 15:06 Abdomen Pelvis wo Cont [CT] Urgent 05/09/19 16:00 CULTURE URINE [RM] Stat"
[2019-05-09 15:17] VITALS: BP 167/87; PULSE 77
[2019-05-09 15:35] LABS: ANION GAP 15.2
== END 2019-05-09 16:40 | disposition home or self-care (01) ==
LOC: DL.ED 14:53
DX: N13.2 Hydronephrosis with renal and ureteral calculous obstruction (principal); I12.9 Hypertensive chronic kidney disease with stage 1 through stage 4 chronic kidney disease, or unspecified chronic kidney disease; N18.9 Chronic kidney disease, unspecified; M19.90 Unspecified osteoarthritis, unspecified site; E03.9 Hypothyroidism, unspecified; E66.9 Obesity, unspecified; Z90.49 Acquired absence of other specified parts of digestive tract; Z90.710 Acquired absence of both cervix and uterus; Z88.2 Allergy status to sulfonamides; Z88.6 Allergy status to analgesic agent; Z79.899 Other long term (current) drug therapy; Z79.4 Long term (current) use of insulin; Z88.5 Allergy status to narcotic agent
CPT/HCPCS: 36415; 74176; 80053; 81001; 85025; 87086; 96361; 96374; 96375; 99284; J2405; J3010; J7030; 87088; 87186

== ENCOUNTER 2019-05-23 09:53 | Emergency (ER) | payer MEDICARE, MEDICAID ==
[2019-05-23] MEDS ORDERED: Sodium Chloride 0.9% 10 ML Syringe FLUSH PRN (10:09)
[2019-05-23 10:25] VITALS: BP 156/73; PULSE 84
--- NOTE | 2019-05-23 10:29 | EDM.PDOC ---
ED HPI GENERAL MEDICAL PROBLEM - General Chief Complaint: General Stated Complaint: pain in side passing out Time Seen by Provider: 05/23/19 10:15 Source of Information: Reports: Patient, RN, RN Notes Reviewed History Limitations: Reports: No Limitations - History of Present Illness INITIAL COMMENTS - FREE TEXT/NARRATIVE: Pt to ER with c/o pain in the left flank area, down the left leg. She states she has a stabbing pain at times down the left leg, and has numbness and tingling down the left leg. States she has some numbness to the left abdominal/ flank area as well. Denies sx of saddle anesthesia. States she has a significant hx of kidney stones and problems in the left kidney. Patient denies any urinary sx. Admits to fever and chills, nausea and diarrhea for the past few days. Admits to SOB, but denies chest pains. Patient states she has a long list of medications but the only medication she is taking is her Levothyroxine. Patient states she has been using oxycodone and it has not been helping. Rates pain 08/09. Onset: Gradual Onset Date: 05/16/19 Left Abdomen Pain Score (Numeric/FACES): 9 - Related Data Allergies Allergy/AdvReac Type Severity Reaction Status Date / Time morphine Allergy Rash Verified 05/23/19 10:14 sulfamethoxazole Allergy Dizziness Verified 05/23/19 10:14 [From Bactrim] trimethoprim [From Bactrim] Allergy Dizziness Verified 05/23/19 10:14 hydrocodone bitartrate AdvReac Stomach Verified 05/23/19 10:14 [From Vicodin] Upset NSAIDS (Non-Steroidal AdvReac Nausea Verified 05/23/19 10:14 Anti-Inflamma Home Meds: Home Meds Albuterol [Ventolin HFA] 2 puff INH Q4H PRN 05/28/15 [History] Fluticasone/Salmeterol [Advair Diskus 250-50] 1 puff INH BID 05/28/15 [History] Acetaminophen 1,000 mg PO Q6H PRN 03/09/18 [History] Cholecalciferol (Vitamin D3) [Vitamin D3] 2,000 units PO DAILY 03/09/18 [History ] Ipratropium/Albuterol Sulfate [IJD: DuoNeb 3.0-0.5 MG/3 ML] 1 vial INH Q4H PRN 03/09/18 [History] Levothyroxine 225 mcg PO DAILY 03/09/18 [History] Cyclobenzaprine [Flexeril] 10 mg PO TID 03/06/19 [History] Tamsulosin HCl [Flomax] 0.4 mg PO DAILY 03/06/19 [History] Gabapentin [Neurontin] 300 mg PO TID 03/07/19 [History] Insulin Lispro [HumaLOG] 0 unit SUBCUT ACBED vial 03/07/19 [Rx] Lisinopril [Prinivil] 20 mg PO DAILY 03/07/19 [History] Ondansetron [Zofran ODT] 4 mg PO Q8HR PRN 03/07/19 [History] Oxybutynin Chloride [Ditropan Xl] 5 mg PO TID 03/07/19 [History] amLODIPine [Norvasc] 10 mg PO DAILY 03/07/19 [History] cefTRIAXone [Rocephin] 1 gm IV Q24H adv 03/07/19 [Rx] Past Medical History HEENT History: Reports: Impaired Vision, Other (See Below) Other HEENT History: UPPER DENTURE, BOTTOM PARTIAL DENTURE, wears glasses Cardiovascular History: Reports: High Cholesterol, Hypertension Respiratory History: Reports: COPD, Intubation, Previous, Sleep Apnea, SOB Gastrointestinal History: Reports: Diverticulosis Genitourinary History: Reports: Chronic Renal Insuffiency, Hydronephrosis, Renal Calculus, UTI, Recurrent HATCH BOSS History: 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 BILAT CARPAL TUNNEL SYNDROME Neurological History: Reports: Concussion Psychiatric History: Reports: Mood Swings Endocrine/Metabolic History: Reports: Hypothyroidism, Obesity/BMI 30+, Osteopenia, Vitamin D Deficiency Hematologic History: Reports: None Immunologic History: Reports: None Oncologic (Cancer) History: Reports: None Dermatologic History: Reports: None - Infectious Disease History Infectious Disease History: Reports: Chicken Pox, Measles, Mumps, TB Other Infectious Disease History: doesnt have TB but will test positive - Past Surgical History Head Surgeries/Procedures: Reports: None Cardiovascular Surgical History: Reports: Other (See Below) Other Cardiovascular Surgeries/Procedures: cardiac cath - PATIENT DENIES CARDIAC CATH 03/09/18. ELECTROCARDIOGRAM Respiratory Surgical History: Reports: None GI Surgical History: Reports: Appendectomy, Cholecystectomy, Colonoscopy, Hernia , Inguinal, Other (See Below) Other GI Surgeries/Procedures: DENIES INGUINAL HERNIA REPAIR 03/09/18 Female Surgical History: Reports: Hysterectomy, Lithotripsy/ESWL, Tubal Ligation, Ureteral Stent Endocrine Surgical History: Reports: None Neurological Surgical History: Reports: C-Spine Musculoskeletal Surgical History: Reports: Arthroscopic Knee, Carpal Tunnel, Joint Replacement Other Musculoskeletal Surgeries/Procedures:: TOTAL R) knee surg, RIGHT & LEFT ( DENIES LEFT CARPAL TUNNEL RELEASE 03/09/18)carpal tunnel, neck surg Oncologic Surgical History: Reports: None Dermatological Surgical History: Reports: None Social & Family History - Family History Family Medical History: Noncontributory - Tobacco Use Smoking Status *Q: Never Smoker - Caffeine Use Caffeine Use: Reports: Coffee Other Caffeine Use: 1 CUP DAILY - Recreational Drug Use Recreational Drug Use: No - Living Situation & Occupation Living situation: Reports: Extended Care Facility ED ROS GENERAL - Review of Systems Review Of Systems: ROS reveals no pertinent complaints other than HPI. ED EXAM, GENERAL - Physical Exam Exam: See Below Exam Limited By: No Limitations General Appearance: Alert, WD/WN, Mild Distress Eye Exam: Bilateral Eye: EOMI, Normal Inspection Ears: Normal External Exam, Hearing Grossly Normal Nose: Normal Inspection Throat/Mouth: Normal Inspection, Normal Voice, No Airway Compromise Head: Atraumatic, Normocephalic Neck: Normal Inspection, Full Range of Motion Respiratory/Chest: No Respiratory Distress, No Accessory Muscle Use, Chest Non- Tender, Decreased Breath Sounds Cardiovascular: Normal Peripheral Pulses, Regular Rate, Rhythm, No Edema, No Gallop, No JVD, No Murmur, No Rub Peripheral Pulses: 2+: Radial (L), Radial (R), Dorsalis Pedis (L), Dorsalis Pedis (R) GI/Abdominal: Normal Bowel Sounds, Soft (Female) Exam: Deferred Rectal (Female) Exam: Deferred Back Exam: CVA Tenderness (L), CVA Tenderness (R) Extremities: Normal Inspection, Normal Range of Motion, Non-Tender, No Pedal Edema, Normal Capillary Refill Neurological: Alert, Oriented, CN II-XII Intact, Normal Cognition Psychiatric: Normal Affect, Normal Mood Skin Exam: Warm, Dry, Intact, Normal Color, No Rash Lymphatic: No Adenopathy Course - Vital Signs Last Recorded V/S: Last Vital Signs Temp 95.7 F 05/23/19 10:17 Pulse 84 05/23/19 10:17 Resp 24 H 05/23/19 10:17 BP 156/73 H 05/23/19 10:17 Pulse Ox 98 05/23/19 10:17 - Orders/Labs/Meds Orders: Active Orders 24 hr Category Date Time Status EKG Documentation Completion [RC] STAT Care 05/23/19 10:09 Active Peripheral IV Care [RC] . DIRECTED Care 05/23/19 10:10 Active Lumbar Spine wo Cont [CT] Urgent Exams 05/23/19 11:15 Ordered CULTURE URINE [RM] Stat Lab 05/23/19 10:10 Received Peripheral IV Insertion Adult [OM.PC] Stat Oth 05/23/19 10:09 Ordered Labs: Laboratory Tests 05/23/19 05/23/19 05/23/19 Range/Units 10:05 10:05 10:10 WBC 10.8 H (5.0-10.0) 10^3/uL RBC 5.19 (4.2-5.4) 10^6/uL Hgb 15.3 (12.0-16.0) g/dL Hct 43.8 (37.0-47.0) % MCV 84.4 (80-100) fL MCH 29.5 (27.0-34.0) pg MCHC 34.9 (33.0-35.0) g/dL Plt Count 207 (150-450) 10^3/uL Neut % (Auto) 87.2 H (42.2-75.2) % Lymph % (Auto) 5.0 L (20.5-50.1) % [place] % (Auto) 4.1 (2-8) % Eos % (Auto) 3.4 H (1.0-3.0) % Baso % (Auto) 0.3 (0.0-1.0) % Sodium 135 (135-145) mmol/L Potassium 3.6 (3.6-5.0) mmol/L Chloride 100 L (101-111) mmol/L Carbon Dioxide 22.0 (21.0-31.0) mmol/L Anion Gap 16.6 BUN 15 (7-18) mg/dL Creatinine 1.0 (0.6-1.3) mg/dL Est Cr Clr Drug Dosing 49.08 mL/min Estimated GFR (MDRD) 56 BUN/Creatinine Ratio 15.00 Glucose 204 H (74-105) mg/dL Calcium 9.2 (8.4-10.2) mg/dl Total Bilirubin 1.2 H (0.2-1.0) mg/dL AST 26 (10-42) IU/L ALT 24 (10-60) IU/L Alkaline Phosphatase 74 (42-121) IU/L Troponin I < 0.02 (0.00-0.02) ng/ml Total Protein 7.6 (6.7-8.2) g/dl Albumin 4.2 (3.2-5.5) g/dl Globulin 3.4 Albumin/Globulin Ratio 1.24 Urine Color Yellow (YELLOW) Urine Appearance Cloudy (CLEAR) Urine pH 5.5 (5.0-9.0) Ur Specific [place] 1.020 (1.005-1.030) Urine Protein 100 H (NEGATIVE) Urine Glucose (UA) Negative (NEGATIVE) Urine Ketones Trace H (NEGATIVE) Urine Occult Blood Trace-intact H (NEGATIVE) Urine Nitrite Negative (NEGATIVE) Urine Bilirubin Small H (NEGATIVE) Urine Urobilinogen 0.2 (0.2-1.0) mg/dL Ur Leukocyte Esterase Small H (NEGATIVE) Urine RBC 5-10 H /HPF Urine WBC 50-75 H (0-5/HPF) /HPF Ur Epithelial Cells Many H (NOT SEEN) /HPF Amorphous Sediment Few (NOT SEEN) /HPF Urine Bacteria Moderate H (0-FEW/HPF) /HPF Urine Mucus Moderate H (NOT SEEN) /LPF Meds: Medications Discontinued Medications Generic Name Dose Route Start Last Admin Trade Name Freq PRN Reason Stop Dose Admin Fentanyl 50 mcg 05/23/19 11:17 Sublimaze IVPUSH 05/23/19 11:18 ONETIME ONE Iopamidol 100 ml 05/23/19 10:46 05/23/19 11:12 Isovue-300 (61%) IVPUSH 05/23/19 10:47 100 ml ONETIME ONE Administration Sodium Chloride 10 ml 05/23/19 10:09 05/23/19 10:41 Saline Flush FLUSH 10 ml ASDIRECTED PRN Administration Keep Vein Open - Radiology Interpretation Free Text/Narrative:: Abdomen/Pelvis CT with and without contrast: No acute new intraperitoneal abnormality (compared to recent 09 May 2019 exam). Abnormalities lumbar spine. Nephrolithiasis left kidney without new signs of obstructive uropathy. See rad report Departure - Departure Time of Disposition: 11:48 Disposition: Home, Self-Care 01 Condition: Fair Clinical Impression: Radicular pain - Discharge Information *PRESCRIPTION DRUG MONITORING PROGRAM REVIEWED*: No *COPY OF PRESCRIPTION DRUG MONITORING REPORT IN PATIENT PAUL: No Instructions: Radicular Pain Referrals: Anca Andrade NP [Primary Care Provider] - Forms: ED Department Discharge Additional Instructions: RX: Tylenol #3, Prednisone Heat the back as tolerated Rest as tolerated Follow up with your primary care facility, suggested MRI - My Orders Last 24 Hours: My Active Orders 05/23/19 10:09 EKG Documentation Completion [RC] STAT Peripheral IV Insertion Adult [OM.PC] Stat 05/23/19 10:10 Peripheral IV Care [RC] . DIRECTED CULTURE URINE [RM] Stat 05/23/19 11:15 Lumbar Spine wo Cont [CT] Urgent - Assessment/Plan Last 24 Hours: My Active Orders 05/23/19 10:09 EKG Documentation Completion [RC] STAT Peripheral IV Insertion Adult [OM.PC] Stat 05/23/19 10:10 Peripheral IV Care [RC] . DIRECTED CULTURE URINE [RM] Stat 05/23/19 11:15 Lumbar Spine wo Cont [CT] Urgent
[2019-05-23 10:32] LABS: ANION GAP 16.6; CHLORIDE,CL 100 mmol/L (101-111); SODIUM,NA 135 mmol/L (135-145)
[2019-05-23] MEDS ORDERED: Iopamidol 612 MG/ML 100 ML Bottle IVPUSH ONE (10:46)
[2019-05-23] MEDS ORDERED: fentaNYL 100 MCG/2 ML SDV IVPUSH ONE (11:17)
--- NOTE | 2019-05-23 11:35 | CT ---
Nonclinical history: 63-year-old female emergency department with left-sided pain. Stones? This 226 pound female with a history of multiple surgeries (cholecystectomy, appendectomy, hysterectomy and colon surgery) reported on CT exam 09 May 2019 to have "fatty infiltration liver and mild hydronephrosis left kidney". Scan technique: Volume acquisition of data from the abdomen and pelvis obtained without oral contrast but during/after intravenous infusion 100 cc nonionic Isovue contrast while patient was lying supine Siemens multi slice scanner [place], [place]. All data archived in the PACS system for storage, reformatting axial/sagittal/coronal planes and study. Interpretation: 1. Multiple punctate calyceal calcifications left kidney and asymmetric mild pyelectasis left kidney as noted on recent 09 May 2019 exam. No ureteral calcifications and no caliectasis or ureterectasis. (No right renal calcifications) Phleboliths pelvis. 2. Empty urinary bladder. Exaggerated lumbar lordosis, chronic L5-S1 disc disease and old compression fracture T12 vertebra unchanged since 02 December 2016 exam. 3. Normal caliber abdominal aorta. No aneurysm or retroperitoneal dissection. 4. No inflammatory "dirty" peritoneal fat and no sign of ventral wall, inguinal or femoral hernias. 5. Fatty liver. Splenic calcifications. Surgically absent gallbladder and uterus. No adnexal mass lesion, abdominal mass lesion, mesenteric/retroperitoneal lymphadenopathy, signs of mechanical bowel obstruction, ascites or free intraperitoneal air. 6. Lung bases clear. Normal cardiac silhouette. CONCLUSION: No acute new intraperitoneal abnormality (compared to recent 09 May 2019 exam). Abnormalities lumbar spine. Nephrolithiasis left kidney without new signs of obstructive uropathy.
== END 2019-05-23 11:55 | disposition home or self-care (01) ==
LOC: DL.ED 09:53
DX: M54.10 Radiculopathy, site unspecified (principal); J44.9 Chronic obstructive pulmonary disease, unspecified; E03.9 Hypothyroidism, unspecified; I10 Essential (primary) hypertension; E78.00 Pure hypercholesterolemia, unspecified; Z79.899 Other long term (current) drug therapy; Z88.5 Allergy status to narcotic agent; Z88.1 Allergy status to other antibiotic agents; Z88.6 Allergy status to analgesic agent
CPT/HCPCS: 36415; 74178; 80053; 81001; 84484; 85025; 87086; 87088; 87186; 93005; 99284; Q9967; 99283

== ENCOUNTER 2019-08-21 08:35 | Emergency (ER) | payer MEDICARE, MEDICAID ==
[2019-08-21] MEDS ORDERED: Ondansetron 4 MG/2 ML SDV IV ONE (09:20)
[2019-08-21] MEDS ORDERED: Ketorolac 30 MG/ML SDV IVPUSH ONE (09:20)
[2019-08-21 09:30] LABS: ANION GAP 14.5
[2019-08-21] MEDS ORDERED: Sodium Chloride 0.9% 1,000 ML IV SCH (09:30)
[2019-08-21] MEDS ORDERED: Sodium Chloride 0.9% 1,000 ML IV ONE (09:31)
[2019-08-21] MEDS ORDERED: cefTRIAXone 1 GM in Sodium Chloride 0.9% 50 ML IV ONE (10:25)
[2019-08-21 10:52] VITALS: BP 162/72; PULSE 61
--- NOTE | 2019-08-21 11:08 | EDM.PDOC ---
Scribed by Kayla Roach 08/21/19 1034 for Mona Hall NP ED HPI GENERAL MEDICAL PROBLEM - General Chief Complaint: Flank Pain Stated Complaint: SICK THROWING UP Time Seen by Provider: 08/21/19 08:58 Source of Information: Reports: Patient, RN, RN Notes Reviewed History Limitations: Reports: No Limitations - History of Present Illness INITIAL COMMENTS - FREE TEXT/NARRATIVE: A 64-year-old lady who states at 0600 she developed pain in left abdomen and flank with referred pain to the right. She had fever and chills. Her pain is 8- 9 and sharp. She has also had nausea. She has a history of kidney stones. This morning she had normal bowel movement. No dysuria or frequency. She has rebound right to left. Her pain is constant. She has an allergy to morphine and sulfa. Onset: Today Duration: Getting Worse Location: Reports: Abdomen (and flank) Quality: Reports: Ache Severity: Severe Improves with: Reports: None Worsens with: Reports: None Associated Symptoms: Reports: No Other Symptoms Left Flank Pain Score (Numeric/FACES): 8 - Related Data Allergies Allergy/AdvReac Type Severity Reaction Status Date / Time morphine Allergy Rash Verified 08/21/19 08:49 sulfamethoxazole Allergy Dizziness Verified 08/21/19 08:49 [From Bactrim] trimethoprim [From Bactrim] Allergy Dizziness Verified 08/21/19 08:49 hydrocodone bitartrate AdvReac Stomach Verified 08/21/19 08:49 [From Vicodin] Upset NSAIDS (Non-Steroidal AdvReac Nausea Verified 08/21/19 08:49 Anti-Inflamma Home Meds: Home Meds Albuterol [Ventolin HFA] 2 puff INH Q4H PRN 05/28/15 [History] Fluticasone/Salmeterol [Advair Diskus 250-50] 1 puff INH BID 05/28/15 [History] Cholecalciferol (Vitamin D3) [Vitamin D3] 2,000 units PO DAILY 03/09/18 [History ] Levothyroxine 225 mcg PO DAILY 03/09/18 [History] Cyclobenzaprine [Flexeril] 10 mg PO DAILY 03/06/19 [History] Past Medical History HEENT History: Reports: Impaired Vision, Other (See Below) Other HEENT History: UPPER DENTURE, BOTTOM PARTIAL DENTURE, wears glasses Cardiovascular History: Reports: High Cholesterol, Hypertension Respiratory History: Reports: COPD, Intubation, Previous, Sleep Apnea, SOB Gastrointestinal History: Reports: Diverticulosis Genitourinary History: Reports: Chronic Renal Insuffiency, Hydronephrosis, Renal Calculus, UTI, Recurrent 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 BILAT CARPAL TUNNEL SYNDROME Neurological History: Reports: Concussion Psychiatric History: Reports: Mood Swings Endocrine/Metabolic History: Reports: Hypothyroidism, Obesity/BMI 30+, Osteopenia, Vitamin D Deficiency Hematologic History: Reports: None Immunologic History: Reports: None Oncologic (Cancer) History: Reports: None Dermatologic History: Reports: None - Infectious Disease History Infectious Disease History: Reports: Chicken Pox, Measles, Mumps, TB Other Infectious Disease History: doesnt have TB but will test positive - Past Surgical History Head Surgeries/Procedures: Reports: None Cardiovascular Surgical History: Reports: Other (See Below) Other Cardiovascular Surgeries/Procedures: cardiac cath - PATIENT DENIES CARDIAC CATH 03/09/18. ELECTROCARDIOGRAM Respiratory Surgical History: Reports: None GI Surgical History: Reports: Appendectomy, Cholecystectomy, Colonoscopy, Hernia , Inguinal, Other (See Below) Other GI Surgeries/Procedures: DENIES INGUINAL HERNIA REPAIR 03/09/18 Female Surgical History: Reports: Hysterectomy, Lithotripsy/ESWL, Tubal Ligation, Ureteral Stent Endocrine Surgical History: Reports: None Neurological Surgical History: Reports: C-Spine Musculoskeletal Surgical History: Reports: Arthroscopic Knee, Carpal Tunnel, Joint Replacement Other Musculoskeletal Surgeries/Procedures:: TOTAL R) knee surg, RIGHT & LEFT ( DENIES LEFT CARPAL TUNNEL RELEASE 03/09/18)carpal tunnel, neck surg Oncologic Surgical History: Reports: None Dermatological Surgical History: Reports: None Social & Family History - Family History Family Medical History: Noncontributory - Caffeine Use Caffeine Use: Reports: Coffee, Soda Other Caffeine Use: 1 CUP DAILY - Living Situation & Occupation Living situation: Reports: Extended Care Facility ED ROS GENERAL - Review of Systems Review Of Systems: ROS reveals no pertinent complaints other than HPI. ED EXAM, GI/ABD - Physical Exam Exam: See Below Exam Limited By: No Limitations General Appearance: Alert, WD/WN, No Apparent Distress Eyes: Bilateral: Normal Appearance Ears: Normal External Exam, Normal Canal, Hearing Grossly Normal, Normal TMs Nose: Normal Inspection, Normal Mucosa, No Blood Throat/Mouth: Normal Inspection, Normal Lips, Normal Teeth, Normal Gums, Normal Oropharynx, Normal Voice, No Airway Compromise Head: Atraumatic, Normocephalic Neck: Normal Inspection, Supple, Non-Tender, Full Range of Motion Respiratory/Chest: No Respiratory Distress, Lungs Clear, Normal Breath Sounds, No Accessory Muscle Use, Chest Non-Tender Cardiovascular: Normal Peripheral Pulses, Regular Rate, Rhythm, No Edema, No Gallop, No JVD, No Murmur, No Rub GI/Abdominal Exam: Other (pain to palpation left mid/lower abdomen with reound right to left. Positive right flank CVA.) Neurological: Alert, Oriented, CN II-XII Intact, Normal Cognition, Normal Gait, Normal Reflexes, No Motor/Sensory Deficits Psychiatric: Normal Affect, Normal Mood Skin Exam: Warm, Dry, Intact, Normal Color, No Rash Course - Vital Signs Last Recorded V/S: Last Vital Signs Temp 36.6 C 08/21/19 10:50 Pulse 61 08/21/19 10:50 Resp 20 08/21/19 10:50 BP 162/72 H 08/21/19 10:50 Pulse Ox 99 08/21/19 10:50 - Orders/Labs/Meds Orders: Active Orders 24 hr Category Date Time Status CULTURE BLOOD [BC] Stat Lab 08/21/19 10:28 Received CULTURE BLOOD [BC] Stat Lab 08/21/19 10:28 Received cefTRIAXone [Rocephin] 1 gm Med 08/21/19 10:25 Active Sodium Chloride 0.9% [Normal Saline] 50 ml IV ONETIME Blood Culture x2 Reflex Set [OM.PC] Stat Oth 08/21/19 10:19 Ordered Medication Orders Ceftriaxone Sodium 1 gm/ (Sodium Chloride) 50 mls @ 50 mls/hr IV ONETIME ONE Stop: 08/21/19 11:24 Last Admin: 08/21/19 10:32 Dose: 50 mls/hr Labs: Laboratory Tests 08/21/19 08/21/19 08/21/19 Range/Units 09:03 09:03 09:10 WBC 16.7 H (5.0-10.0) 10^3/uL RBC 5.07 (4.2-5.4) 10^6/uL Hgb 15.0 (12.0-16.0) g/dL Hct 42.8 (37.0-47.0) % MCV 84.4 (80-100) fL MCH 29.6 (27.0-34.0) pg MCHC 35.0 (33.0-35.0) g/dL Plt Count 262 (150-450) 10^3/uL Neut % (Auto) 72.5 (42.2-75.2) % Lymph % (Auto) 17.8 L (20.5-50.1) % Alexander % (Auto) 7.3 (2-8) % Eos % (Auto) 2.0 (1.0-3.0) % Baso % (Auto) 0.4 (0.0-1.0) % Sodium 137 (135-145) mmol/L Potassium 3.5 L (3.6-5.0) mmol/L Chloride 102 (101-111) mmol/L Carbon Dioxide 24.0 (21.0-31.0) mmol/L Anion Gap 14.5 BUN 16 (7-18) mg/dL Creatinine 1.0 (0.6-1.3) mg/dL Est Cr Clr Drug Dosing 48.43 mL/min Estimated GFR (MDRD) 56 BUN/Creatinine Ratio 16.00 Glucose 162 H (74-105) mg/dL Lactic Acid (0.5-2.2) mmol/L Calcium 8.9 (8.4-10.2) mg/dl Total Bilirubin 1.2 H (0.2-1.0) mg/dL AST 29 (10-42) IU/L ALT 38 (10-60) IU/L Alkaline Phosphatase 66 (42-121) IU/L Total Protein 8.1 (6.7-8.2) g/dl Albumin 4.0 (3.2-5.5) g/dl Globulin 4.1 Albumin/Globulin Ratio 0.98 Urine Color Yellow (YELLOW) Urine Appearance Slightly cloudy (CLEAR) Urine pH 6.0 (5.0-9.0) Ur Specific [place] >= 1.030 (1.005-1.030) Urine Protein 100 H (NEGATIVE) Urine Glucose (UA) Negative (NEGATIVE) Urine Ketones Negative (NEGATIVE) Urine Occult Blood Moderate H (NEGATIVE) Urine Nitrite Negative (NEGATIVE) Urine Bilirubin Negative (NEGATIVE) Urine Urobilinogen 0.2 (0.2-1.0) mg/dL Ur Leukocyte Esterase Trace H (NEGATIVE) Urine RBC 5-10 H /HPF Urine WBC >100 H (0-5/HPF) /HPF Ur Epithelial Cells Many H (NOT SEEN) /HPF Urine Bacteria Moderate H (0-FEW/HPF) /HPF 08/21/19 Range/Units 10:28 WBC (5.0-10.0) 10^3/uL RBC (4.2-5.4) 10^6/uL Hgb (12.0-16.0) g/dL Hct (37.0-47.0) % MCV (80-100) fL MCH (27.0-34.0) pg MCHC (33.0-35.0) g/dL Plt Count (150-450) 10^3/uL Neut % (Auto) (42.2-75.2) % Lymph % (Auto) (20.5-50.1) % Alexander % (Auto) (2-8) % Eos % (Auto) (1.0-3.0) % Baso % (Auto) (0.0-1.0) % Sodium (135-145) mmol/L Potassium (3.6-5.0) mmol/L Chloride (101-111) mmol/L Carbon Dioxide (21.0-31.0) mmol/L Anion Gap BUN (7-18) mg/dL Creatinine (0.6-1.3) mg/dL Est Cr Clr Drug Dosing mL/min Estimated GFR (MDRD) BUN/Creatinine Ratio Glucose (74-105) mg/dL Lactic Acid 1.8 (0.5-2.2) mmol/L Calcium (8.4-10.2) mg/dl Total Bilirubin (0.2-1.0) mg/dL AST (10-42) IU/L ALT (10-60) IU/L Alkaline Phosphatase (42-121) IU/L Total Protein (6.7-8.2) g/dl Albumin (3.2-5.5) g/dl Globulin Albumin/Globulin Ratio Urine Color (YELLOW) Urine Appearance (CLEAR) Urine pH (5.0-9.0) Ur Specific [place] (1.005-1.030) Urine Protein (NEGATIVE) Urine Glucose (UA) (NEGATIVE) Urine Ketones (NEGATIVE) Urine Occult Blood (NEGATIVE) Urine Nitrite (NEGATIVE) Urine Bilirubin (NEGATIVE) Urine Urobilinogen (0.2-1.0) mg/dL Ur Leukocyte Esterase (NEGATIVE) Urine RBC /HPF Urine WBC (0-5/HPF) /HPF Ur Epithelial Cells (NOT SEEN) /HPF Urine Bacteria (0-FEW/HPF) /HPF Meds: Medications Generic Name Dose Route Start Last Admin Trade Name Freq PRN Reason Stop Dose Admin Ceftriaxone Sodium 1 gm/ 50 mls @ 50 mls/hr 08/21/19 10:25 08/21/19 10:32 Sodium Chloride IV 08/21/19 11:24 50 mls/hr ONETIME ONE Administration Discontinued Medications Generic Name Dose Route Start Last Admin Trade Name Freq PRN Reason Stop Dose Admin Sodium Chloride 1,000 mls @ 900 mls/hr 08/21/19 09:30 Normal Saline IV .BOLUS JAIME Sodium Chloride 1,000 mls @ 999 mls/hr 08/21/19 09:31 08/21/19 09:58 Normal Saline IV 08/21/19 10:31 150 mls/hr .BOLUS ONE Infusion Ketorolac Tromethamine 30 mg 08/21/19 09:20 08/21/19 09:25 Toradol IVPUSH 08/21/19 09:21 30 mg ONETIME ONE Administration Ondansetron HCl 4 mg 08/21/19 09:20 08/21/19 09:25 Zofran IV 08/21/19 09:21 4 mg ONETIME ONE Administration - Radiology Interpretation Free Text/Narrative:: CT abd/pelvis wo contrast: The LEFT kidney shows severe pelviectasis with moderate perinephric stranding, with a 7.6 x 5.2 x 6.0 mm intraureteral calculus at the mid L4 level. Additional mid pelvic tiny intraureteral calculi are present on the LEFT, approximately 2 in number, measuring approximately 1.2 mm and 1.9 mm LEFT renal calculi (approximately 16), the largest in the posterior mid kidney measuring 4.1 mm. RIGHT renal calculi (3), the largest in the posterior mid-upper kidney measuring 1.5 mm. Angular lordosis of the sacrococcygeal junction consistent with remote injury IMPRESSION: 1. LEFT obstructive uropathy secondary to an abdominal intraureteral calculus. Additional small distal LEFT intraureteral calculi are present. 2. Bilateral renal calyceal lithiasis. 3. Fatty infiltration of the liver. 4. Prior cholecystectomy. 5. Prior hysterectomy. 6. Diverticulosis. 7. Nonspecific anterior panniculus subcutaneous edema redemonstrated. 8. Pelvic floor relaxation with peritoneocele redemonstrated. appendix is normal. - Re-Assessments/Exams Free Text/Narrative Re-Assessment/Exam: 08/21/19 10:29 UTI complicated with elevated WBC; culture pending. Rocephin IV given after blood culture done. Left flank and abdominal pain with multiple large left kidney stones. Fevers and chills at home with Large WBC in urine. Hx of kidney stents/stone and wants to have Dr. Cristobal care for her stones a he has done her previous surgery. CT identifies left kidney stranding with 7.6 mm stone in the left ureter, and additional multiple other smaller stones on the left. Right also has multiple small kidney stones. Dr. Monroe was oncall for [facility] and he wishes to have her admitted due to her hx of fevers chills and urine with WBC's. Her WBC are elevated but may be related to pain response and not left shift. Creat normal and no fever currently. BP normal Will transfer by ambulance to [facility] under accepting Hospitalist Dr. Miranda. Patient agrees with transfer. 08/21/19 10:37 08/21/19 10:59 08/21/19 11:07 Departure - Departure Time of Disposition: 11:07 Disposition: DC/Tfer to Acute Hospital 02 Condition: Fair Clinical Impression: Complicated UTI (urinary tract infection), Calculi, ureter, Kidney stone on left side - Discharge Information *PRESCRIPTION DRUG MONITORING PROGRAM REVIEWED*: Not Applicable *COPY OF PRESCRIPTION DRUG MONITORING REPORT IN PATIENT PAUL: Not Applicable Referrals: PCP,None [Primary Care Provider] - Forms: ED Department Discharge, Interfacility Transfer EMTALA - My Orders Last 24 Hours: My Active Orders 08/21/19 10:19 Blood Culture x2 Reflex Set [OM.PC] Stat 08/21/19 10:25 cefTRIAXone [Rocephin] 1 gm Sodium Chloride 0.9% [Normal Saline] 50 ml IV ONETIME 08/21/19 10:28 CULTURE BLOOD [BC] Stat CULTURE BLOOD [BC] Stat - Assessment/Plan Last 24 Hours: My Active Orders 08/21/19 10:19 Blood Culture x2 Reflex Set [OM.PC] Stat 08/21/19 10:25 cefTRIAXone [Rocephin] 1 gm Sodium Chloride 0.9% [Normal Saline] 50 ml IV ONETIME 08/21/19 10:28 CULTURE BLOOD [BC] Stat CULTURE BLOOD [BC] Stat I have read and agree with the documentation that has been completed regarding this visit. By signing this record, I attest that the documentation was completed in my physical presence and is an accurate record of the encounter.
== END 2019-08-21 11:29 ==
LOC: DL.ED 08:35
DX: N20.1 Calculus of ureter (principal); N20.0 Calculus of kidney; N39.0 Urinary tract infection, site not specified; J44.9 Chronic obstructive pulmonary disease, unspecified; I12.9 Hypertensive chronic kidney disease with stage 1 through stage 4 chronic kidney disease, or unspecified chronic kidney disease; N18.9 Chronic kidney disease, unspecified; E66.9 Obesity, unspecified; E03.9 Hypothyroidism, unspecified; Z90.49 Acquired absence of other specified parts of digestive tract; Z90.710 Acquired absence of both cervix and uterus; Z79.899 Other long term (current) drug therapy; Z79.51 Long term (current) use of inhaled steroids; Z88.5 Allergy status to narcotic agent; Z88.8 Allergy status to other drugs, medicaments and biological substances; Z88.2 Allergy status to sulfonamides; Z88.6 Allergy status to analgesic agent; Z98.51 Tubal ligation status
CPT/HCPCS: 36415; 74176; 80053; 81001; 83605; 85025; 87040; 96361; 96365; 96375; 99285; J0696; J1885; J2405; J7030; J7050

== ENCOUNTER 2020-06-07 08:54 | Emergency (ER) | payer MEDICARE, MEDICAID ==
[2020-06-07 09:27] VITALS: BP 191/96; PULSE 70
[2020-06-07] MEDS ORDERED: Sodium Chloride 0.9% 1,000 ML IV ONE (09:28)
--- NOTE | 2020-06-07 09:35 | EDM.PDOC ---
ED HPI GENERAL MEDICAL PROBLEM - General Chief Complaint: Flank Pain Stated Complaint: LEFT FLANK PAIN/VOMITING/DIZZY Time Seen by Provider: 06/07/20 09:20 Source of Information: Reports: Patient History Limitations: Reports: No Limitations - History of Present Illness INITIAL COMMENTS - FREE TEXT/NARRATIVE: This 64 yo female patient reports to the ED with left lower abdominal pain and left flank pain. The patient reports her pain started this morning. The patient reports she did take 2 ibuprofen (200 mg) with no symptom relief. The patient also reports she has been feeling dizzy today. The patient reports she has been feeling sick for the past 1-2 weeks (frequent urination, nausea, chills and headaches). The patient has not been seen for her current symptoms. The patient does have a history of kidney stones and previous urinary tract infections. The patient reports she normally drinks more fluid than she has had today, but did drink about 1/2 of a bottle of water today. 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 Left Flank Pain Score (Numeric/FACES): 7 - Related Data Allergies Allergy/AdvReac Type Severity Reaction Status Date / Time morphine Allergy Rash Verified 08/21/19 08:49 sulfamethoxazole Allergy Dizziness Verified 08/21/19 08:49 [From Bactrim] trimethoprim [From Bactrim] Allergy Dizziness Verified 08/21/19 08:49 hydrocodone bitartrate AdvReac Stomach Verified 08/21/19 08:49 [From Vicodin] Upset NSAIDS (Non-Steroidal AdvReac Nausea Verified 08/21/19 08:49 Anti-Inflamma Home Meds: Home Meds Albuterol [Ventolin HFA] 2 puff INH Q4H PRN 05/28/15 [History] Fluticasone/Salmeterol [Advair Diskus 250-50] 1 puff INH BID 05/28/15 [History] Cholecalciferol (Vitamin D3) [Vitamin D3] 2,000 units PO DAILY 03/09/18 [History] Levothyroxine 225 mcg PO DAILY 03/09/18 [History] Past Medical History HEENT History: Reports: Impaired Vision, Other (See Below) Other HEENT History: UPPER DENTURE, BOTTOM PARTIAL DENTURE, wears glasses Cardiovascular History: Reports: High Cholesterol, Hypertension Respiratory History: Reports: COPD, Intubation, Previous, Sleep Apnea, SOB Gastrointestinal History: Reports: Diverticulosis Genitourinary History: Reports: Chronic Renal Insuffiency, Hydronephrosis, Renal Calculus, UTI, Recurrent [employer]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 BILAT CARPAL TUNNEL SYNDROME Neurological History: Reports: Concussion Psychiatric History: Reports: Mood Swings Endocrine/Metabolic History: Reports: Hypothyroidism, Obesity/BMI 30+, Osteopenia, Vitamin D Deficiency Hematologic History: Reports: None Immunologic History: Reports: None Oncologic (Cancer) History: Reports: None Dermatologic History: Reports: None - Infectious Disease History Infectious Disease History: Reports: Chicken Pox, Measles, Mumps, TB Other Infectious Disease History: doesnt have TB but will test positive - Past Surgical History Head Surgeries/Procedures: Reports: None Cardiovascular Surgical History: Reports: Other (See Below) Other Cardiovascular Surgeries/Procedures: cardiac cath - PATIENT DENIES CARDIAC CATH 03/09/18. ELECTROCARDIOGRAM Respiratory Surgical History: Reports: None GI Surgical History: Reports: Appendectomy, Cholecystectomy, Colonoscopy, Hernia, Inguinal, Other (See Below) Other GI Surgeries/Procedures: DENIES INGUINAL HERNIA REPAIR 03/09/18 Female Surgical History: Reports: Hysterectomy, Lithotripsy/ESWL, Tubal Ligation, Ureteral Stent Endocrine Surgical History: Reports: None Neurological Surgical History: Reports: C-Spine Musculoskeletal Surgical History: Reports: Arthroscopic Knee, Carpal Tunnel, Joint Replacement Other Musculoskeletal Surgeries/Procedures:: TOTAL R) knee surg, RIGHT & LEFT (DENIES LEFT CARPAL TUNNEL RELEASE 03/09/18)carpal tunnel, neck surg Oncologic Surgical History: Reports: None Dermatological Surgical History: Reports: None Social & Family History - Family History Family Medical History: Noncontributory - Caffeine Use Caffeine Use: Reports: Coffee, Soda Other Caffeine Use: 1 CUP DAILY - Living Situation & Occupation Living situation: Reports: Extended Care Facility ED ROS GENERAL - Review of Systems Review Of Systems: Comprehensive ROS is negative, except as noted in HPI. ED EXAM, RENAL/ - Physical Exam Exam: See Below Exam Limited By: No Limitations General Appearance: Alert, WD/WN, Moderate Distress, Obese Eye Exam: Bilateral Eye: EOMI, Normal Inspection, PERRL Ears: Normal External Exam, Normal Canal, Hearing Grossly Normal, Normal TMs Nose: Normal Inspection, Normal Mucosa, No Blood Throat/Mouth: Normal Inspection, Normal Lips, Normal Teeth, Normal Gums, Normal Oropharynx, Normal Voice, No Airway Compromise Head: Atraumatic, Normocephalic Neck: Normal Inspection, Supple, Non-Tender, Full Range of Motion Respiratory/Chest: No Respiratory Distress, Lungs Clear, Normal Breath Sounds, No Accessory Muscle Use, Chest Non-Tender Cardiovascular: Normal Peripheral Pulses, Regular Rate, Rhythm, No Edema, No Gallop, No JVD, No Murmur, No Rub GI/Abdominal: Tender (LLQ) (Female) Exam: Deferred Rectal (Female) Exam: Deferred Back Exam: Full Range of Motion, CVA Tenderness (L) Extremities: Normal Inspection, Normal Range of Motion, Non-Tender, Normal Capillary Refill, No Pedal Edema Neurological: Alert, Oriented, CN II-XII Intact, Normal Cognition, Normal Gait, Normal Reflexes, No Motor/Sensory Deficits Psychiatric: Normal Affect, Normal Mood Skin Exam: Warm, Dry, Intact, Normal Color, No Rash Lymphatic: No Adenopathy Course - Vital Signs Last Recorded V/S: Last Vital Signs Temp 35.5 C L 06/07/20 09:18 Pulse 70 06/07/20 09:18 Resp 20 06/07/20 09:18 BP 191/96 H 06/07/20 09:18 Pulse Ox 98 06/07/20 09:18 - Orders/Labs/Meds Orders: Active Orders 24 hr Category Date Time Status EKG Documentation Completion [RC] STAT Care 06/07/20 09:28 Active CULTURE URINE [RM] Urgent Lab 06/07/20 09:18 Received Labs: Laboratory Tests 06/07/20 06/07/20 06/07/20 Range/Units 09:18 09:35 09:35 WBC 11.7 H (5.0-10.0) 10^3/uL RBC 5.19 (4.2-5.4) 10^6/uL Hgb 15.2 (12.0-16.0) g/dL Hct 43.6 (37.0-47.0) % MCV 84.0 (80-100) fL MCH 29.3 (27.0-34.0) pg MCHC 34.9 (33.0-35.0) g/dL Plt Count 198 (150-450) 10^3/uL Neut % (Auto) 73.5 (42.2-75.2) % Lymph % (Auto) 16.6 L (20.5-50.1) % [place] % (Auto) 7.7 (2-8) % Eos % (Auto) 1.9 (1.0-3.0) % Baso % (Auto) 0.3 (0.0-1.0) % Sodium 131 L (136-145) mmol/L Potassium 4.1 (3.5-5.1) mmol/L Chloride 96 L (98-107) mmol/L Carbon Dioxide 26 (21-32) mmol/L Anion Gap 13.1 H (7-13) mEq/L BUN 17 (7-18) mg/dL Creatinine 1.20 H (0.55-1.02) mg/dL Est Cr Clr Drug Dosing 40.36 mL/min Estimated GFR (MDRD) 45 BUN/Creatinine Ratio 14.2 (No establ ref range) Glucose 494 H* (74-99) mg/dL Calcium 9.6 (8.5-10.1) mg/dL Total Bilirubin 0.9 (0.2-1.0) mg/dL AST 47 H (15-37) U/L ALT 89 H (14-59) U/L Alkaline Phosphatase 90 (46-116) U/L Troponin I < 0.017 (0.000-0.056) ng/mL Total Protein 7.6 (6.4-8.2) g/dL Albumin 3.6 (3.4-5.0) g/dL Globulin 4.0 Albumin/Globulin Ratio 0.9 Urine Color Yellow (YELLOW) Urine Appearance Clear (CLEAR) Urine pH 5.5 (5.0-9.0) Ur Specific [place] 1.015 (1.005-1.030) Urine Protein 100 H (NEGATIVE) Urine Glucose (UA) >=1000 H (NEGATIVE) Urine Ketones 15 H (NEGATIVE) Urine Occult Blood Small H (NEGATIVE) Urine Nitrite Negative (NEGATIVE) Urine Bilirubin Negative (NEGATIVE) Urine Urobilinogen 0.2 (0.2-1.0) mg/dL Ur Leukocyte Esterase Trace H (NEGATIVE) Urine RBC 10-20 H /HPF Urine WBC 20-30 H (0-5/HPF) /HPF Ur Epithelial Cells Many H (NOT SEEN) /HPF Urine Bacteria Few (0-FEW/HPF) /HPF Urine Yeast Many H (NOT SEEN) /HPF Meds: Medications Discontinued Medications Generic Name Dose Route Start Last Admin Trade Name Freq PRN Reason Stop Dose Admin Sodium Chloride 1,000 mls @ 999 mls/hr 06/07/20 09:28 06/07/20 09:38 Normal Saline IV 06/07/20 10:28 999 mls/hr .BOLUS ONE Administration Ceftriaxone Sodium 1 gm/ 50 mls @ 100 mls/hr 06/07/20 11:30 06/07/20 11:36 Sodium Chloride IV 06/07/20 11:59 100 mls/hr ONETIME ONE Administration Ketorolac Tromethamine 30 mg 06/07/20 11:15 06/07/20 11:30 Toradol IVPUSH 06/07/20 11:16 30 mg ONETIME ONE Administration Ondansetron HCl 4 mg 06/07/20 09:55 06/07/20 10:06 Zofran IVPUSH 06/07/20 09:56 4 mg ONETIME ONE Administration Departure - Departure Time of Disposition: 12:06 Disposition: Home, Self-Care 01 Condition: Fair Clinical Impression: Left ureteral calculus, Hydronephrosis of left kidney, Complicated UTI (urinary tract infection) - Discharge Information *PRESCRIPTION DRUG MONITORING PROGRAM REVIEWED*: Not Applicable *COPY OF PRESCRIPTION DRUG MONITORING REPORT IN PATIENT PAUL: Not Applicable Instructions: Kidney Stones, [id number], Urinary Tract Infection, Adult, [id number], Hydronephrosis Forms: ED Department Discharge Care Plan Goals: The patient was advised of the examination, lab and CT results during the visit. The patient was given IV fluids, IV Toradol and IV Rocephin while in the ED. The patient was encouraged to continue to increase her oral fluid intake. The patient was discharged with a script for Keflex (500 mg) #14 to take 1 by mouth 2 times per day for 7 days and Toradol (10 mg) #20 to take 1 by mouth every 6 hours as needed with food. The patient was encouraged to contact her kidney specialist for continued evaluation and further treatment. If the patient has any additional symptoms or concerns, the patient should either return to the emergency department or visit her primary care facility. Sepsis Event Note (ED) - Evaluation Sepsis Screening Result: No Definite Risk - Focused Exam Vital Signs: Vital Signs Temp Pulse Resp BP Pulse Ox 06/07/20 09:18 35.5 C L 70 20 191/96 H 98 - My Orders Last 24 Hours: My Active Orders 06/07/20 09:18 CULTURE URINE [RM] Urgent 06/07/20 09:28 EKG Documentation Completion [RC] STAT - Assessment/Plan Last 24 Hours: My Active Orders 06/07/20 09:18 CULTURE URINE [RM] Urgent 06/07/20 09:28 EKG Documentation Completion [RC] STAT
[2020-06-07] MEDS ORDERED: Ondansetron 4 MG/2 ML SDV IVPUSH ONE (09:55)
[2020-06-07 10:07] LABS: ANION GAP 13.1 mEq/L (7-13); CHLORIDE,CL 96 mmol/L (98-107); SODIUM,NA 131 mmol/L (136-145)
--- NOTE | 2020-06-07 11:12 | CT ---
PROCEDURE INFORMATION: Exam: CT Abdomen And Pelvis Without Contrast Exam date and time: 06/07/2020 10:22 AM Age: 64 years old Clinical indication: Abdominal pain; Flank; Left; Prior surgery; Surgery date: 6+ months; Surgery type: Cholecystectomy, appendectomy, hysterectomy last known stone was ; Additional info: Left flank pain (history of kidney stones) TECHNIQUE: Imaging protocol: Computed tomography of the abdomen and pelvis without contrast. Radiation optimization: All CT scans at this facility use at least one of these dose optimization techniques: automated exposure control; mA and/or kV adjustment per patient size (includes targeted exams where dose is matched to clinical indication); or iterative reconstruction. COMPARISON: CT Abdomen Pelvis wo Cont 08/21/2019 9:48 AM FINDINGS: Liver: The liver demonstrates punctate calcifications, consistent with remote granulomatous organism exposure. There is a diffuse decrease in hepatic parenchymal density, consistent with mild fatty infiltration. Hepatomegaly measuring 23 cm in craniocaudad dimension. Gallbladder and bile ducts: The patient is status post cholecystectomy. Pancreas: Normal. No ductal dilation. Spleen: The spleen demonstrates punctate calcifications, consistent with remote granulomatous organism exposure. Adrenals: Normal. No mass. Kidneys and ureters: Numerous punctate non-obstructing renal calculi bilaterally. Moderately severe left hydronephrosis and hydroureter due to a 3 mm calculus at the distal left ureter approximately 2 cm from the left UVJ. Asymmetric left perinephric stranding suggesting caliceal rupture. Stomach and bowel: Moderate feces is present throughout the colon. No significant distention of the large or small bowel. Appendix: No evidence of appendicitis. Intraperitoneal space: Unremarkable. No free air. No significant fluid collection. Vasculature: Unremarkable. No abdominal aortic aneurysm. Lymph nodes: Unremarkable. No enlarged lymph nodes. Bladder: Unremarkable as visualized. Reproductive: Status post hysterectomy. Bones/joints: Chronic T12 vertebral compression fracture. Severe narrowing of the L5-S1 disc space with associated vacuum phenomena and marginal osteophytes. Soft tissues: There is a fat-containing umbilical hernia. IMPRESSION: 1. Moderately severe left hydronephrosis and hydroureter due to a 3 mm calculus at the distal left ureter approximately 2 cm from the left UVJ. 2. Asymmetric left perinephric stranding suggesting caliceal rupture. 3. Severe narrowing of the L5-S1 disc space with associated vacuum phenomena and marginal osteophytes.
[2020-06-07] MEDS ORDERED: Ketorolac 30 MG/ML SDV IVPUSH ONE (11:15)
[2020-06-07] MEDS ORDERED: cefTRIAXone 1 GM in Sodium Chloride 0.9% 50 ML IV ONE (11:30)
== END 2020-06-07 12:30 | disposition home or self-care (01) ==
LOC: DL.ED 08:54
DX: N13.2 Hydronephrosis with renal and ureteral calculous obstruction (principal); J44.9 Chronic obstructive pulmonary disease, unspecified; I12.9 Hypertensive chronic kidney disease with stage 1 through stage 4 chronic kidney disease, or unspecified chronic kidney disease; N18.9 Chronic kidney disease, unspecified; E03.9 Hypothyroidism, unspecified; E66.9 Obesity, unspecified; Z68.41 Body mass index [BMI] 40.0-44.9, adult; N39.0 Urinary tract infection, site not specified; Z88.5 Allergy status to narcotic agent; Z88.2 Allergy status to sulfonamides; Z88.6 Allergy status to analgesic agent
CPT/HCPCS: 36415; 74176; 80053; 81001; 84484; 85025; 87086; 93005; 96361; 96365; 96375; 99284; J0696; J1885; J2405; J7030; J7050

== ENCOUNTER 2020-07-13 17:21 | Inpatient (IN) | payer MEDICARE, MEDICAID ==
[2020-07-13] MEDS ORDERED: Sodium Chloride 0.9% 1,000 ML IV ONE (17:29)
--- NOTE | 2020-07-13 17:52 | EDM.PDOC ---
ED HPI GENERAL MEDICAL PROBLEM - General Chief Complaint: Diabetic Complaint Stated Complaint: GET BLOOD SURGAR DOWN, SUGAR 583 PT SAYS Time Seen by Provider: 07/13/20 17:40 Source of Information: Reports: Patient History Limitations: Reports: No Limitations - History of Present Illness INITIAL COMMENTS - FREE TEXT/NARRATIVE: This 65 yo female patient reports to the ED under the direction of an [facility] provider due to her blood sugar level being 552. The provider did not get the lab results until after the patient had left the clinic, so he called the patient and advised her to come to the ED. The patient reports she has been feeling very tired over the past week and had increased dizziness today. The patient normally sees a provider in [place]. The patient was seen in the ED 1 month ago and had an elevated blood sugar level, but the patient reports she forgot to follow-up with her primary care facility. The patient was also diagnosed with a yeast infection through her clinic visit (a script was called [facility]). Onset: Unknown/Unsure Duration: Day(s):, Constant Location: Reports: Generalized Quality: Reports: Other Severity: Moderate Improves with: Reports: None Worsens with: Reports: None Context: Reports: Other Associated Symptoms: Reports: Loss of Appetite, Weakness, Other (increased thirst) - Related Data Allergies Allergy/AdvReac Type Severity Reaction Status Date / Time morphine Allergy Rash Verified 07/13/20 17:29 sulfamethoxazole Allergy Dizziness Verified 07/13/20 17:29 [From Bactrim] trimethoprim [From Bactrim] Allergy Dizziness Verified 07/13/20 17:29 hydrocodone bitartrate AdvReac Stomach Verified 07/13/20 17:29 [From Vicodin] Upset NSAIDS (Non-Steroidal AdvReac Nausea Verified 07/13/20 17:29 Anti-Inflamma Home Meds: Home Meds Albuterol [Ventolin HFA] 2 puff INH Q4H PRN 05/28/15 [History] Fluticasone/Salmeterol [Advair Diskus 250-50] 1 puff INH BID 05/28/15 [History] Cholecalciferol (Vitamin D3) [Vitamin D3] 2,000 units PO DAILY 03/09/18 [History] Levothyroxine 225 mcg PO DAILY 03/09/18 [History] Past Medical History HEENT History: Reports: Impaired Vision, Other (See Below) Other HEENT History: UPPER DENTURE, BOTTOM PARTIAL DENTURE, wears glasses Cardiovascular History: Reports: High Cholesterol, Hypertension Respiratory History: Reports: COPD, Intubation, Previous, Sleep Apnea, SOB Gastrointestinal History: Reports: Diverticulosis Genitourinary History: Reports: Chronic Renal Insuffiency, Hydronephrosis, Renal Calculus, UTI, 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 BILAT CARPAL TUNNEL SYNDROME Neurological History: Reports: Concussion Psychiatric History: Reports: Mood Swings Endocrine/Metabolic History: Reports: Hypothyroidism, Obesity/BMI 30+, Osteopenia, Vitamin D Deficiency Hematologic History: Reports: None Immunologic History: Reports: None Oncologic (Cancer) History: Reports: None Dermatologic History: Reports: None - Infectious Disease History Infectious Disease History: Reports: Chicken Pox, Measles, Mumps, TB Other Infectious Disease History: doesnt have TB but will test positive - Past Surgical History Head Surgeries/Procedures: Reports: None Cardiovascular Surgical History: Reports: Other (See Below) Other Cardiovascular Surgeries/Procedures: cardiac cath - PATIENT DENIES CARDIAC CATH 03/09/18. ELECTROCARDIOGRAM Respiratory Surgical History: Reports: None GI Surgical History: Reports: Appendectomy, Cholecystectomy, Colonoscopy, Hernia, Inguinal, Other (See Below) Other GI Surgeries/Procedures: DENIES INGUINAL HERNIA REPAIR 03/09/18 Female Surgical History: Reports: Hysterectomy, Lithotripsy/ESWL, Tubal Ligation, Ureteral Stent Endocrine Surgical History: Reports: None Neurological Surgical History: Reports: C-Spine Musculoskeletal Surgical History: Reports: Arthroscopic Knee, Carpal Tunnel, Joint Replacement Other Musculoskeletal Surgeries/Procedures:: TOTAL R) knee surg, RIGHT & LEFT (DENIES LEFT CARPAL TUNNEL RELEASE 03/09/18)carpal tunnel, neck surg Oncologic Surgical History: Reports: None Dermatological Surgical History: Reports: None Social & Family History - Family History Family Medical History: Noncontributory - Caffeine Use Caffeine Use: Reports: Coffee, Soda Other Caffeine Use: 1 CUP DAILY - Living Situation & Occupation Living situation: Reports: Extended Care Facility ED ROS GENERAL - Review of Systems Review Of Systems: Comprehensive ROS is negative, except as noted in HPI. ED EXAM GENERAL NO PERIP PULSE - Physical Exam Exam: See Below Exam Limited By: No Limitations General Appearance: Alert, WD/WN, Moderate Distress, Obese Eye Exam: Bilateral Eye: EOMI, Normal Inspection, PERRL Ears: Normal External Exam, Normal Canal, Hearing Grossly Normal, Normal TMs Nose: Normal Inspection, Normal Mucosa, No Blood Throat/Mouth: Normal Inspection, Normal Lips, Normal Teeth, Normal Gums, Normal Oropharynx, Normal Voice, No Airway Compromise Head: Atraumatic, Normocephalic Neck: Normal Inspection, Supple, Non-Tender, Full Range of Motion Respiratory/Chest: No Respiratory Distress, Lungs Clear, Normal Breath Sounds, No Accessory Muscle Use, Chest Non-Tender Cardiovascular: Normal Peripheral Pulses, Regular Rate, Rhythm, No Edema, No Gallop, No JVD, No Murmur, No Rub GI/Abdominal: Normal Bowel Sounds, Soft, Non-Tender, No Organomegaly, No Distention, No Abnormal Bruit, No Mass, Other (obese) (Female) Exam: Deferred Rectal (Female) Exam: Deferred Back Exam: Normal Inspection, Full Range of Motion, NT Extremities: Normal Inspection, Normal Range of Motion, Non-Tender, Normal Capillary Refill, No Pedal Edema Neurological: Alert, Oriented, CN II-XII Intact, Normal Cognition, Normal Gait, Normal Reflexes, No Motor/Sensory Deficits Psychiatric: Normal Affect, Normal Mood Skin Exam: Warm, Dry, Intact, Normal Color, No Rash Lymphatic: No Adenopathy Course - Vital Signs Last Recorded V/S: Last Vital Signs Temp 35.8 C L 07/13/20 17:30 Pulse 73 07/13/20 17:30 Resp 18 07/13/20 17:30 BP 170/98 H 07/13/20 17:30 Pulse Ox 98 07/13/20 17:30 - Orders/Labs/Meds Orders: Active Orders 24 hr Category Date Time Status Admission Diagnosis [ADT] Urgent ADT 07/13/20 18:26 Ordered Admission Status [Patient Status] [ADT] Routine ADT 07/13/20 18:26 Ordered Sodium Chloride 0.9% [Normal Saline] 1,000 ml Med 07/13/20 17:29 Active IV .BOLUS Medication Orders Sodium Chloride (Normal Saline) 1,000 mls @ 999 mls/hr IV .BOLUS ONE Stop: 07/13/20 18:29 Last Admin: 07/13/20 17:36 Dose: 999 mls/hr Documented by: [email or web address] Labs: Laboratory Tests 07/13/20 07/13/20 Range/Units 17:34 17:34 WBC 10.7 H (5.0-10.0) 10^3/uL RBC 5.25 (4.2-5.4) 10^6/uL Hgb 15.2 (12.0-16.0) g/dL Hct 42.9 (37.0-47.0) % MCV 81.7 (80-100) fL MCH 29.0 (27.0-34.0) pg MCHC 35.4 H (33.0-35.0) g/dL Plt Count 217 (150-450) 10^3/uL Neut % (Auto) 65.8 (42.2-75.2) % Lymph % (Auto) 23.6 (20.5-50.1) % [place] % (Auto) 7.9 (2-8) % Eos % (Auto) 2.1 (1.0-3.0) % Baso % (Auto) 0.6 (0.0-1.0) % Sodium 129 L (136-145) mmol/L Potassium 3.6 (3.5-5.1) mmol/L Chloride 93 L (98-107) mmol/L Carbon Dioxide 24 (21-32) mmol/L Anion Gap 15.6 H (7-13) mEq/L BUN 14 (7-18) mg/dL Creatinine 1.16 H (0.55-1.02) mg/dL Est Cr Clr Drug Dosing 41.20 mL/min Estimated GFR (MDRD) 47 BUN/Creatinine Ratio 12.1 (No establ ref range) Glucose 567 H* (74-99) mg/dL Calcium 9.8 (8.5-10.1) mg/dL Total Bilirubin 0.9 (0.2-1.0) mg/dL AST 44 H (15-37) U/L ALT 88 H (14-59) U/L Alkaline Phosphatase 97 (46-116) U/L Total Protein 8.1 (6.4-8.2) g/dL Albumin 3.7 (3.4-5.0) g/dL Globulin 4.4 Albumin/Globulin Ratio 0.8 Ketones Negative Meds: Medications Generic Name Dose Route Start Last Admin Trade Name Freq PRN Reason Stop Dose Admin Sodium Chloride 1,000 mls @ 999 mls/hr 07/13/20 17:29 07/13/20 17:36 Normal Saline IV 07/13/20 18:29 999 mls/hr .BOLUS ONE Administration Departure - Departure Time of Disposition: 18:27 Disposition: Refer to Observation Condition: Fair Clinical Impression: Hyperglycemia, Hyponatremia - Discharge Information *PRESCRIPTION DRUG MONITORING PROGRAM REVIEWED*: Not Applicable *COPY OF PRESCRIPTION DRUG MONITORING REPORT IN PATIENT PAUL: Not Applicable Care Plan Goals: Discussed the patient's history, examination, lab and treatments with Dr. Mojica. Dr. Mojica accepted the patient for observation for continued evaluation and furt her treatment. Sepsis Event Note (ED) - Evaluation Sepsis Screening Result: No Definite Risk - Focused Exam Vital Signs: Vital Signs Temp Pulse Resp BP Pulse Ox 07/13/20 17:30 35.8 C L 73 18 170/98 H 98 - My Orders Last 24 Hours: My Active Orders 07/13/20 17:29 Sodium Chloride 0.9% [Normal Saline] 1,000 ml IV .BOLUS 07/13/20 18:26 Admission Diagnosis [ADT] Urgent Admission Status [Patient Status] [ADT] Routine - Assessment/Plan Last 24 Hours: My Active Orders 07/13/20 17:29 Sodium Chloride 0.9% [Normal Saline] 1,000 ml IV .BOLUS 07/13/20 18:26 Admission Diagnosis [ADT] Urgent Admission Status [Patient Status] [ADT] Routine
[2020-07-13 18:13] LABS: ANION GAP 15.6 mEq/L (7-13); CHLORIDE,CL 93 mmol/L (98-107); SODIUM,NA 129 mmol/L (136-145)
--- NOTE | 2020-07-13 20:28 | PCM.HP ---
H&P History of Present Illness - General Date of Service: 07/13/20 Admit Problem/Dx: Admission Diagnosis/Problem Admission Diagnosis/Problem Hyperglycemia Source of Information: Patient, EMS Notes Reviewed History Limitations: Reports: No Limitations - History of Present Illness Initial Comments - Free Text/Narative: Ms. Cortney Canales is a 65-year-old female with significant past medical history of kidney stones, hypertension, chronic renal failure, hypothyroidism, and C OPD. patient reports to the ED under the direction of an [employer] provider due to her blood sugar level being elevated, it was 552 g/dl. The provider did not get the lab results until after the patient had left the clinic, so he called the patient and advised her to come to the ED. The patient reports she has been feeling very tired over the past week and had increased dizziness today. The patient normally sees a provider in [place]. The patient was seen in the ED 1 month ago and had an elevated blood sugar level, but the patient reports she forgot to follow-up with her primary care facility. The patient was also diagnosed with a yeast infection through her clinic visit ([facility]). T Onset of Symptoms: Reports: Today, Gradual Associated Symptoms: Reports: Weakness - Related Data Allergies/Adverse Reactions: Allergies Allergy/AdvReac Type Severity Reaction Status Date / Time morphine Allergy Rash Verified 07/13/20 18:50 sulfamethoxazole Allergy Dizziness Verified 07/13/20 18:50 [From Bactrim] trimethoprim [From Bactrim] Allergy Dizziness Verified 07/13/20 18:50 hydrocodone bitartrate AdvReac Stomach Verified 07/13/20 18:50 [From Vicodin] Upset NSAIDS (Non-Steroidal AdvReac Nausea Verified 07/13/20 18:50 Anti-Inflamma Home Medications: Home Meds Albuterol [Ventolin HFA] 2 puff INH Q4H PRN 05/28/15 [History] Fluticasone/Salmeterol [Advair Diskus 250-50] 1 puff INH BID 05/28/15 [History] Cholecalciferol (Vitamin D3) [Vitamin D3] 2,000 units PO DAILY 03/09/18 [History] Levothyroxine 225 mcg PO DAILY 03/09/18 [History] Nystatin 1 applic TOP TID 07/13/20 [History] Past Medical History HEENT History: Reports: Impaired Vision, Other (See Below) Other HEENT History: UPPER DENTURE, BOTTOM PARTIAL DENTURE, wears glasses Cardiovascular History: Reports: High Cholesterol, Hypertension Respiratory History: Reports: COPD, Intubation, Previous, Sleep Apnea, SOB Gastrointestinal History: Reports: Diverticulosis Genitourinary History: Reports: Chronic Renal Insuffiency, Hydronephrosis, Renal Calculus, UTI, 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 BILAT CARPAL TUNNEL SYNDROME Neurological History: Reports: Concussion Psychiatric History: Reports: Mood Swings Endocrine/Metabolic History: Reports: Hypothyroidism, Obesity/BMI 30+, Oste openia, Vitamin D Deficiency Hematologic History: Reports: None Immunologic History: Reports: None Oncologic (Cancer) History: Reports: None Dermatologic History: Reports: None - Infectious Disease History Infectious Disease History: Reports: Chicken Pox, Measles, Mumps, TB Other Infectious Disease History: doesnt have TB but will test positive - Past Surgical History Head Surgeries/Procedures: Reports: None Cardiovascular Surgical History: Reports: Other (See Below) Other Cardiovascular Surgeries/Procedures: cardiac cath - PATIENT DENIES CARDIAC CATH 03/09/18. ELECTROCARDIOGRAM Respiratory Surgical History: Reports: None GI Surgical History: Reports: Appendectomy, Cholecystectomy, Colonoscopy, Hernia, Inguinal, Other (See Below) Other GI Surgeries/Procedures: DENIES INGUINAL HERNIA REPAIR 03/09/18 Female Surgical History: Reports: Hysterectomy, Lithotripsy/ESWL, Tubal Ligation, Ureteral Stent Endocrine Surgical History: Reports: None Neurological Surgical History: Reports: C-Spine Musculoskeletal Surgical History: Reports: Arthroscopic Knee, Carpal Tunnel, Joint Replacement Other Musculoskeletal Surgeries/Procedures:: TOTAL R) knee surg, RIGHT & LEFT (DENIES LEFT CARPAL TUNNEL RELEASE 03/09/18)carpal tunnel, neck surg Oncologic Surgical History: Reports: None Dermatological Surgical History: Reports: None Social & Family History - Family History Family Medical History: Noncontributory - Tobacco Use Smoking Status *Q: Never Smoker Second Hand Smoke Exposure: No - Caffeine Use Caffeine Use: Reports: Coffee Other Caffeine Use: 1 CUP DAILY - Recreational Drug Use Recreational Drug Use: No - Living Situation & Occupation Living situation: Reports: Extended Care Facility H&P Review of Systems - Review of Systems: Review Of Systems: See Below General: Reports: Weakness. Denies: Fever, Chills HEENT: Denies: Rhinitis, Sinus Congestion, Sore Throat Pulmonary: Denies: Shortness of Breath, Wheezing, Cough, Sputum Cardiovascular: Reports: Lightheadedness. Denies: Chest Pain, Dyspnea on Exertion Gastrointestinal: Denies: Abdominal Pain, Diarrhea, Difficulty Swallowing, Vomiting Genitourinary: Reports: Dysuria. Denies: Burning, Flank Pain Musculoskeletal: Denies: Neck Pain, Shoulder Pain, Muscle Pain Skin: Denies: Jaundice, Pruritis, Erythema Psychiatric: Denies: Confusion, Depression, Agitation Neurological: Denies: Confusion, Paresthesia, Tingling, Tremors Hematologic/Lymphatic: Reports: No Symptoms Immunologic: Reports: No Symptoms Exam - Exam Exam: See Below - Vital Signs Vital Signs: Last Vital Signs Temp 36.3 C 07/13/20 19:20 Pulse 64 07/13/20 19:20 Resp 20 07/13/20 19:20 BP 172/91 H 07/13/20 19:20 Pulse Ox 99 07/13/20 19:20 Weight: 124.919 kg - Exam Quality Assessment: DVT Prophylaxis. No: Supplemental Oxygen, Urinary Catheter General: Alert, Oriented, Cooperative HEENT: Conjunctiva Clear, EOMI, Hearing Intact, Pupils Reactive Neck: Supple. No: JVD, Thyromegaly Lungs: Clear to Auscultation, Normal Respiratory Effort. No: Crackles, Wheezing Cardiovascular: Regular Rate, Regular Rhythm, Normal S1, Normal S2 GI/Abdominal Exam: Normal Bowel Sounds, Soft, Non-Tender, No Distention (Female) Exam: Deferred Rectal (Female) Exam: Deferred Back Exam: Normal Inspection, Full Range of Motion Extremities: Normal Inspection, Normal Range of Motion, No Pedal Edema Skin: Warm, Dry, Intact Neurological: Cranial Nerves Intact, Reflexes Equal Bilateral Neuro Extensive - Mental Status: Alert, Oriented x3, Normal Mood/Affect, Normal Cognition, Memory Intact Neuro Extensive - Motor, Sensory, Reflexes: CN II-XII Intact, Normal Gait, Normal Reflexes Psychiatric: Alert, Normal Affect, Normal Mood - Patient Data Lab Results Last 24 hrs: Laboratory Results - last 24 hr 07/13/20 07/13/20 Range/Units 17:34 17:34 WBC 10.7 H (5.0-10.0) 10^3/uL RBC 5.25 (4.2-5.4) 10^6/uL Hgb 15.2 (12.0-16.0) g/dL Hct 42.9 (37.0-47.0) % MCV 81.7 (80-100) fL MCH 29.0 (27.0-34.0) pg MCHC 35.4 H (33.0-35.0) g/dL Plt Count 217 (150-450) 10^3/uL Neut % (Auto) 65.8 (42.2-75.2) % Lymph % (Auto) 23.6 (20.5-50.1) % [place] % (Auto) 7.9 (2-8) % Eos % (Auto) 2.1 (1.0-3.0) % Baso % (Auto) 0.6 (0.0-1.0) % Sodium 129 L (136-145) mmol/L Potassium 3.6 (3.5-5.1) mmol/L Chloride 93 L (98-107) mmol/L Carbon Dioxide 24 (21-32) mmol/L Anion Gap 15.6 H (7-13) mEq/L BUN 14 (7-18) mg/dL Creatinine 1.16 H (0.55-1.02) mg/dL Est Cr Clr Drug Dosing 41.20 mL/min Estimated GFR (MDRD) 47 BUN/Creatinine Ratio 12.1 (No establ ref range) Glucose 567 H* (74-99) mg/dL Calcium 9.8 (8.5-10.1) mg/dL Total Bilirubin 0.9 (0.2-1.0) mg/dL AST 44 H (15-37) U/L ALT 88 H (14-59) U/L Alkaline Phosphatase 97 (46-116) U/L Total Protein 8.1 (6.4-8.2) g/dL Albumin 3.7 (3.4-5.0) g/dL Globulin 4.4 Albumin/Globulin Ratio 0.8 Ketones Negative Result Diagrams: 07/13/20 17:34 07/13/20 17:34 - Problem List (1) Hyperglycemia SNOMED Code(s): 49506096 ICD Code: R73.9 - HYPERGLYCEMIA, UNSPECIFIED Status: Acute Current Visit: No (2) UTI (urinary tract infection) SNOMED Code(s): 98334809 ICD Code: N39.0 - URINARY TRACT INFECTION, SITE NOT SPECIFIED Status: Acute Current Visit: No Qualifiers: Urinary tract infection type: site unspecified Hematuria presence: with hematuria Qualified Code(s): N39.0 - Urinary tract infection, site not specified; R31.9 - Hematuria, unspecified Problem List Initiated/Reviewed/Updated: Yes Orders Last 24hrs: Active Orders 24 hr Category Date Time Status Admission Diagnosis [ADT] Urgent ADT 07/13/20 18:26 Ordered Admission Status [Patient Status] [ADT] Routine ADT 07/13/20 18:26 Active Assessment/Plan Comment:: This 65 yo female patient reports to the ED under the direction of an [facility] provider due to her blood sugar level being 552. The provider did not get the lab results until after the patient had left the clinic, so he called the patient and advised her to come to the ED. The patient reports she has been feeling very tired over the past week and had increased dizziness today. The patient normally sees a provider in [place]. The patient was seen in the ED 1 month ago and had an elevated blood sugar level, but the patient reports she forgot to follow-up with her primary care facility. The patient was also diagnosed with a yeast infection through her clinic visit (a script was called into [facility]). she is admitted fo Hyperglycemia and also yeast Infection 1. Hyperglycemia: New onset of Diabetes and pt will be started on oral hypoglycemic -Will also give a loding dose of Insulin -Will start NS at 100 mlhr -Will start Metformin at 500 mg 2 times day - check Blodd sugar 4 times a day 2. Pt had dysuria : her wet prep/Tunde prep showed yeast or budding yeast - Will start Fluconazole at 100 mg IV daily 3. Hypothyroidism: Continue Levothyroxine 4, COPD: Continue Advair and albuterol 5. DVT prophylaxis: continue Enoxaparin 6. Hyponatremia: This is pseudohyponatremia from hyperglycemia, corrected sodium 137 meq/L Code Status: Full code
[2020-07-13] MEDS ORDERED: Acetaminophen 325 MG Tab PO PRN (20:54)
[2020-07-13] MEDS ORDERED: Docusate Sodium 100 MG Cap PO PRN (20:54)
[2020-07-13] MEDS ORDERED: Insulin Regular, Human 100 Units/ML 3 ML Vial SUBCUT ONE (21:02)
[2020-07-13] MEDS ORDERED: Glucose Gel 15 GM in 37.5 GM Tube PO PRN (21:15)
[2020-07-13] MEDS ORDERED: Albuterol 6.7 GM Inhaler INH PRN (21:15)
[2020-07-13] MEDS ORDERED: Fluconazole/Normal Saline 100 MG in Premix Bag 1 BAG IV SCH (21:15)
[2020-07-13] MEDS: Sodium Chloride 0.9% 1,000 ML IV SCH (21:33)
[2020-07-13] MEDS: Fluconazole/Normal Saline 100 MG in Premix Bag 1 BAG IV SCH (21:34)
[2020-07-13] MEDS: metFORMIN 500 MG Tab PO SCH (21:36)
[2020-07-13] MEDS ORDERED: Insulin Lispro 100 Units/ML 3 ML Vial SUBCUT ONE (23:03)
[2020-07-14 07:24] LABS: ANION GAP 11.2 mEq/L (7-13); CHLORIDE,CL 101 mmol/L (98-107); SODIUM,NA 137 mmol/L (136-145)
[2020-07-14] MEDS: Enoxaparin 40 MG/0.4 ML Syringe SUBCUT SCH ×2 (07:52→08:18)
[2020-07-14] MEDS: metFORMIN 500 MG Tab PO SCH ×2 (07:52→17:23)
[2020-07-14] MEDS: Levothyroxine 75 MCG Tab PO SCH ×2 (07:53→08:18)
[2020-07-14] MEDS: Formoterol/Mometasone 200-5 MCG 8.8 GM Inhaler IH SCH ×3 (07:54→21:53)
[2020-07-14] MEDS: Sodium Chloride 0.9% 1,000 ML IV SCH ×2 (08:00→18:45)
[2020-07-14] MEDS: Insulin Lispro 100 Units/ML 3 ML Vial SUBCUT SCH ×4 (08:41→21:53)
--- NOTE | 2020-07-14 12:16 | PCM.PN ---
- General Info Date of Service: 07/14/20 Admission Dx/Problem (Free Text): Admission Diagnosis/Problem Admission Diagnosis/Problem Hyperglycemia Subjective Update: pt was seen in room doing well, no more frequent urination, No nausea but had headache but better now. appetite is good Functional Status: Reports: Pain Controlled, Tolerating Diet, Ambulating, Urinating - Review of Systems General: Reports: Weakness, Appetite (good). Denies: Fever, Fatigue, Chills HEENT: Reports: Headaches. Denies: Sinus Congestion, Rhinitis, Visual Changes Pulmonary: Denies: Shortness of Breath, Cough, Sputum, Wheezing Cardiovascular: Denies: Chest Pain, Dyspnea on Exertion, Edema Gastrointestinal: Reports: Nausea. Denies: Abdominal Pain, Difficulty Swallowing, Vomiting Genitourinary: Denies: Dysuria, Burning, Flank Pain Musculoskeletal: Denies: Neck Pain, Hand Pain, Back Pain, Joint Swelling Skin: Denies: Cyanosis, Jaundice, Bruising, Pruritis, Rash Neurological: Reports: Headache. Denies: Confusion, Dizziness, Numbness, Tremors Psychiatric: Denies: Confusion, Depression, Anxiety - Patient Data Vitals - Most Recent: Last Vital Signs Temp 36.4 C 07/14/20 08:00 Pulse 54 L 07/14/20 08:00 Resp 20 07/14/20 08:00 BP 151/65 H 07/14/20 08:00 Pulse Ox 99 07/14/20 08:00 Weight - Most Recent: 124.919 kg I&O - Last 24 Hours: Intake & Output 07/13/20 07/14/20 07/14/20 22:59 06:59 14:59 Intake Total 240 Balance 240 Lab Results Last 24 Hours: Laboratory Results - last 24 hr 07/13/20 07/13/20 07/13/20 Range/Units 17:28 17:34 17:34 WBC 10.7 H (5.0-10.0) 10^3/uL RBC 5.25 (4.2-5.4) 10^6/uL Hgb 15.2 (12.0-16.0) g/dL Hct 42.9 (37.0-47.0) % MCV 81.7 (80-100) fL MCH 29.0 (27.0-34.0) pg MCHC 35.4 H (33.0-35.0) g/dL Plt Count 217 (150-450) 10^3/uL Neut % (Auto) 65.8 (42.2-75.2) % Lymph % (Auto) 23.6 (20.5-50.1) % [place] % (Auto) 7.9 (2-8) % Eos % (Auto) 2.1 (1.0-3.0) % Baso % (Auto) 0.6 (0.0-1.0) % Sodium 129 L (136-145) mmol/L Potassium 3.6 (3.5-5.1) mmol/L Chloride 93 L (98-107) mmol/L Carbon Dioxide 24 (21-32) mmol/L Anion Gap 15.6 H (7-13) mEq/L BUN 14 (7-18) mg/dL Creatinine 1.16 H (0.55-1.02) mg/dL Est Cr Clr Drug Dosing 41.20 mL/min Estimated GFR (MDRD) 47 BUN/Creatinine Ratio 12.1 (No establ ref range) Glucose 567 H* (74-99) mg/dL POC Glucose > 500 H* (70-105) mg/dl Calcium 9.8 (8.5-10.1) mg/dL Total Bilirubin 0.9 (0.2-1.0) mg/dL AST 44 H (15-37) U/L ALT 88 H (14-59) U/L Alkaline Phosphatase 97 (46-116) U/L Total Protein 8.1 (6.4-8.2) g/dL Albumin 3.7 (3.4-5.0) g/dL Globulin 4.4 Albumin/Globulin Ratio 0.8 Ketones Negative 07/13/20 07/13/20 07/14/20 Range/Units 21:15 22:54 00:10 WBC (5.0-10.0) 10^3/uL RBC (4.2-5.4) 10^6/uL Hgb (12.0-16.0) g/dL Hct (37.0-47.0) % MCV (80-100) fL MCH (27.0-34.0) pg MCHC (33.0-35.0) g/dL Plt Count (150-450) 10^3/uL Neut % (Auto) (42.2-75.2) % Lymph % (Auto) (20.5-50.1) % [place] % (Auto) (2-8) % Eos % (Auto) (1.0-3.0) % Baso % (Auto) (0.0-1.0) % Sodium (136-145) mmol/L Potassium (3.5-5.1) mmol/L Chloride (98-107) mmol/L Carbon Dioxide (21-32) mmol/L Anion Gap (7-13) mEq/L BUN (7-18) mg/dL Creatinine (0.55-1.02) mg/dL Est Cr Clr Drug Dosing mL/min Estimated GFR (MDRD) BUN/Creatinine Ratio (No establ ref range) Glucose (74-99) mg/dL POC Glucose > 500 H* 403 H* 299 H (70-105) mg/dl Calcium (8.5-10.1) mg/dL Total Bilirubin (0.2-1.0) mg/dL AST (15-37) U/L ALT (14-59) U/L Alkaline Phosphatase (46-116) U/L Total Protein (6.4-8.2) g/dL Albumin (3.4-5.0) g/dL Globulin Albumin/Globulin Ratio Ketones 07/14/20 07/14/20 07/14/20 Range/Units 06:35 08:09 11:45 WBC (5.0-10.0) 10^3/uL RBC (4.2-5.4) 10^6/uL Hgb (12.0-16.0) g/dL Hct (37.0-47.0) % MCV (80-100) fL MCH (27.0-34.0) pg MCHC (33.0-35.0) g/dL Plt Count (150-450) 10^3/uL Neut % (Auto) (42.2-75.2) % Lymph % (Auto) (20.5-50.1) % Ford % (Auto) (2-8) % Eos % (Auto) (1.0-3.0) % Baso % (Auto) (0.0-1.0) % Sodium 137 (136-145) mmol/L Potassium 3.2 L (3.5-5.1) mmol/L Chloride 101 (98-107) mmol/L Carbon Dioxide 28 (21-32) mmol/L Anion Gap 11.2 (7-13) mEq/L BUN 12 (7-18) mg/dL Creatinine 0.88 (0.55-1.02) mg/dL Est Cr Clr Drug Dosing 54.30 mL/min Estimated GFR (MDRD) > 60 BUN/Creatinine Ratio (No establ ref range) Glucose 176 H (74-99) mg/dL POC Glucose 228 H 299 H (70-105) mg/dl Calcium 8.5 (8.5-10.1) mg/dL Total Bilirubin (0.2-1.0) mg/dL AST (15-37) U/L ALT (14-59) U/L Alkaline Phosphatase (46-116) U/L Total Protein (6.4-8.2) g/dL Albumin (3.4-5.0) g/dL Globulin Albumin/Globulin Ratio Ketones Med Orders - Current: Current Medications Acetaminophen (Tylenol) 650 mg PO Q4H PRN PRN Reason: Pain (mild 1-3 )/fever Albuterol (Proventil Hfa) 0 gm INH Q4H PRN PRN Reason: Shortness of Breath Dextrose (Glutose 15) 15 gm PO Q1H PRN PRN Reason: GLUCOSE <80 g/dln Docusate Sodium (Colace) 100 mg PO DAILY PRN PRN Reason: Constipation Enoxaparin Sodium (Lovenox) 40 mg SUBCUT DAILY [facility] Last Admin: 07/14/20 08:18 Dose: Not Given Documented by: Sodium Chloride (Normal Saline) 1,000 mls @ 100 mls/hr IV ASDIRECTED [facility] Last Admin: 07/14/20 08:00 Dose: 100 mls/hr Documented by: Fluconazole/Sodium Chloride (100 mg/ Premix) 50 mls @ 100 mls/hr IV Q24H [facility] Last Infusion: 07/13/20 22:38 Dose: Infused Documented by: Insulin Human Lispro (Humalog) 0 unit SUBCUT WITHMEALSANDBED [facility]; Protocol Last Admin: 07/14/20 08:41 Dose: 4 units Documented by: Levothyroxine Sodium (Levothyroxine) 225 mcg PO DAILY [facility] Last Admin: 07/14/20 08:18 Dose: Not Given Documented by: Metformin HCl (Glucophage) 500 mg PO BIDMEALS [facility] Last Admin: 07/14/20 07:52 Dose: 500 mg Documented by: Mometasone Furoate/Formoterol Fumar (Dulera 200-5 Mcg) 2 puff IH BID [facility] Last Admin: 07/14/20 08:18 Dose: Not Given Documented by: Discontinued Medications Sodium Chloride (Normal Saline) 1,000 mls @ 999 mls/hr IV .BOLUS ONE Stop: 07/13/20 18:29 Last Admin: 07/13/20 17:36 Dose: 999 mls/hr Documented by: Fluconazole/Sodium Chloride (100 mg/ Premix) 50 mls @ 100 mls/hr IV Q24H [facility] Last Admin: 07/13/20 21:39 Dose: Not Given Documented by: Insulin Human Lispro (Humalog) 20 unit SUBCUT ONETIME ONE Stop: 07/13/20 23:04 Last Admin: 07/13/20 23:20 Dose: 20 units Documented by: Insulin Human Regular (Humulin R) 20 unit SUBCUT ONETIME ONE Stop: 07/13/20 21:03 Last Admin: 07/13/20 21:37 Dose: 20 units Documented by: - Exam Quality Assessment: DVT Prophylaxis. No: Supplemental Oxygen, Urine Catheter General: Alert, Oriented, Cooperative, No Acute Distress HEENT: Pupils Equal, Pupils Reactive, EOMI, Mucous Membr. Moist/[place] Neck: Supple, No JVD, No Thyromegaly Lungs: Clear to Auscultation, Normal Respiratory Effort Cardiovascular: Regular Rate, Regular Rhythm, No Murmurs GI/Abdominal Exam: Normal Bowel Sounds, Soft, Non-Tender, No Distention (Female) Exam: Deferred Back Exam: Normal Inspection, Full Range of Motion Extremities: Normal Inspection, Non-Tender, No Pedal Edema Skin: Warm, Dry, Intact Neurological: No New Focal Deficit Psy/Mental Status: Alert, Normal Affect, Normal Mood Sepsis Event Note - Evaluation Sepsis Screening Result: No Definite Risk - Focused Exam Vital Signs: Vital Signs Temp Pulse Resp BP Pulse Ox 07/14/20 08:00 36.4 C 54 L 20 151/65 H 99 - Problem List & Annotations (1) Hyperglycemia SNOMED Code(s): 43162601 Code(s): R73.9 - HYPERGLYCEMIA, UNSPECIFIED Status: Acute Current Visit: No (2) UTI (urinary tract infection) SNOMED Code(s): 47352101 Code(s): N39.0 - URINARY TRACT INFECTION, SITE NOT SPECIFIED Status: Acute Current Visit: No Qualifiers: Urinary tract infection type: site unspecified Hematuria presence: with hematuria Qualified Code(s): N39.0 - Urinary tract infection, site not specified; R31.9 - Hematuria, unspecified - Problem List Review Problem List Initiated/Reviewed/Updated: Yes - My Orders Last 24 Hours: My Active Orders 07/13/20 20:54 Patient Status [ADT] Routine Up With Assistance [RC] ASDIRECTED Vital Signs [RC] Q4HR Acetaminophen [Tylenol] 650 mg PO Q4H PRN Docusate Sodium [Colace] 100 mg PO DAILY PRN DVT/VTE Prophylaxis Reflex [OM.PC] Routine Resuscitation Status Routine 07/13/20 20:56 Pulse Oximetry [RC] PRN 07/13/20 20:57 Oxygen Therapy [RC] PRN 07/13/20 20:58 Antiembolic Devices [RC] .Routine VTE/DVT Education [RC] PER UNIT ROUTINE 07/13/20 21:00 Fluconazole/Normal Saline [Diflucan in NS 200 MG/100 ML] 100 mg Premix Bag 1 bag IV Q24H 07/13/20 21:02 metFORMIN [Glucophage] 500 mg PO BIDMEALS 07/13/20 21:06 Blood Glucose Check, Bedside [RC] WITHMEALSANDBED 07/13/20 21:15 Albuterol [Proventil HFA] 0 gm INH Q4H PRN Dextrose [Glutose 15] 15 gm PO Q1H PRN Sodium Chloride 0.9% [Normal Saline] 1,000 ml IV ASDIRECTED 07/13/20 21:16 RT Post Treatment Assessment [RC] Click to Edit RT Pre-Treatment Assessment [RC] Click to Edit 07/14/20 Breakfast Consistent Carbohydrate Diet [DIET] 07/14/20 08:00 Insulin Lispro [HumaLOG] See Protocol SUBCUT WITHMEALSANDBED 07/14/20 09:00 Enoxaparin [Lovenox] 40 mg SUBCUT DAILY Levothyroxine 225 mcg PO DAILY Mometasone/Formoterol [Dulera 200-5 MCG] 2 puff IH BID - Plan Plan:: This 65 yo female patient reports to the ED under the direction of an [facility] provider due to her blood sugar level being 552. The provider did not get the lab results until after the patient had left the clinic, so he called the patient and advised her to come to the ED. The patient reports she has been feeling very tired over the past week and had increased dizziness today. The patient normally sees a provider in [place]. The patient was seen in the ED 1 month ago and had an elevated blood sugar level, but the patient reports she forgot to follow-up with her primary care facility. The patient was also diagnosed with a yeast infection through her clinic visit (a script was called into [facility]). she is admitted fo Hyperglycemia and also yeast Infection 1. Hyperglycemia: New onset of Diabetes and continue oral hypoglycemic -Will check Blood sugar and continue sliding scale coverage Insulin -Will continue NS at 100 mlhr -Will continue Metformin at 500 mg 2 times day - continue Blood sugar check 4 times a day 2. Pt had dysuria : her wet prep/Tunde prep showed yeast or budding yeast - Will continue Fluconazole at 100 mg IV daily 3. Hypothyroidism: Continue Levothyroxine 4, COPD: Continue Advair and albuterol 5. DVT prophylaxis: continue Enoxaparin 6. Hyponatremia: This is pseudohyponatremia from hyperglycemia, corrected sodium 137 meq/L 7. Hypokalemia: This is likely from osmotic diuresis and will give potassium chloride 40 meq PO X 1 dose -Recheck BMP in AM Code Status: Full code
[2020-07-14] MEDS ORDERED: metFORMIN 500 MG Tab PO ONE (17:55)
[2020-07-14] MEDS: Fluconazole/Normal Saline 100 MG in Premix Bag 1 BAG IV SCH (20:56)
[2020-07-15] MEDS: Sodium Chloride 0.9% 1,000 ML IV SCH (04:51)
[2020-07-15 07:06] LABS: ANION GAP 11.7 mEq/L (7-13); CHLORIDE,CL 100 mmol/L (98-107); SODIUM,NA 135 mmol/L (136-145)
[2020-07-15] MEDS ORDERED: metFORMIN 500 MG Tab PO SCH (08:00)
[2020-07-15] MEDS: Levothyroxine 75 MCG Tab PO SCH (09:00)
[2020-07-15] MEDS: Insulin Lispro 100 Units/ML 3 ML Vial SUBCUT SCH ×4 (09:02→21:41)
[2020-07-15] MEDS: Enoxaparin 40 MG/0.4 ML Syringe SUBCUT SCH (09:04)
[2020-07-15] MEDS: Formoterol/Mometasone 200-5 MCG 8.8 GM Inhaler IH SCH ×2 (09:04→20:12)
--- NOTE | 2020-07-15 16:06 | PCM.PN ---
- General Info Date of Service: 07/15/20 Admission Dx/Problem (Free Text): Admission Diagnosis/Problem Admission Diagnosis/Problem Hyperglycemia Subjective Update: pt was seen in room doing well, no more frequent urination, No nausea but had headache but better now. appetite is good and slept well last night Functional Status: Reports: Pain Controlled, Tolerating Diet, Ambulating, Urinating - Review of Systems General: Reports: Weakness, Appetite (good). Denies: Fever, Chills HEENT: Reports: Headaches. Denies: Sinus Congestion, Sore Throat, Visual Changes Pulmonary: Denies: Shortness of Breath, Cough, Sputum, Wheezing Cardiovascular: Denies: Chest Pain, Edema, Lightheadedness Gastrointestinal: Denies: Abdominal Pain, Diarrhea, Nausea, Vomiting Genitourinary: Denies: Dysuria, Burning, Flank Pain Musculoskeletal: Denies: Neck Pain, Leg Pain, Joint Pain Skin: Denies: Cyanosis, Jaundice, Bruising, Pruritis, Rash Neurological: Denies: Confusion, Dizziness, Numbness, Tremors Psychiatric: Denies: Confusion, Anxiety - Patient Data Vitals - Most Recent: Last Vital Signs Temp 36.7 C 07/15/20 12:35 Pulse 64 07/15/20 12:35 Resp 20 07/15/20 12:35 BP 167/68 H 07/15/20 12:35 Pulse Ox 98 07/15/20 12:35 Weight - Most Recent: 124.919 kg I&O - Last 24 Hours: Intake & Output 07/15/20 07/15/20 07/15/20 06:59 14:59 22:59 Intake Total 3927 1461 Output Total 1 Balance 3926 1461 Lab Results Last 24 Hours: Laboratory Results - last 24 hr 07/14/20 07/14/20 07/15/20 Range/Units 17:00 21:11 06:16 Sodium 135 L (136-145) mmol/L Potassium 3.7 (3.5-5.1) mmol/L Chloride 100 (98-107) mmol/L Carbon Dioxide 27 (21-32) mmol/L Anion Gap 11.7 (7-13) mEq/L BUN 8 (7-18) mg/dL Creatinine 0.86 (0.55-1.02) mg/dL Est Cr Clr Drug Dosing 55.57 mL/min Estimated GFR (MDRD) > 60 Glucose 314 H (74-99) mg/dL POC Glucose 260 H 317 H (70-105) mg/dl Calcium 8.1 L (8.5-10.1) mg/dL 07/15/20 07/15/20 Range/Units 07:50 11:55 Sodium (136-145) mmol/L Potassium (3.5-5.1) mmol/L Chloride (98-107) mmol/L Carbon Dioxide (21-32) mmol/L Anion Gap (7-13) mEq/L BUN (7-18) mg/dL Creatinine (0.55-1.02) mg/dL Est Cr Clr Drug Dosing mL/min Estimated GFR (MDRD) Glucose (74-99) mg/dL POC Glucose 289 H 266 H (70-105) mg/dl Calcium (8.5-10.1) mg/dL Med Orders - Current: Current Medications Acetaminophen (Tylenol) 650 mg PO Q4H PRN PRN Reason: Pain (mild 1-3 )/fever Last Admin: 07/14/20 13:01 Dose: 650 mg Documented by: Albuterol (Proventil Hfa) 0 gm INH Q4H PRN PRN Reason: Shortness of Breath Dextrose (Glutose 15) 15 gm PO Q1H PRN PRN Reason: GLUCOSE <80 g/dln Docusate Sodium (Colace) 100 mg PO DAILY PRN PRN Reason: Constipation Enoxaparin Sodium (Lovenox) 40 mg SUBCUT DAILY [facility] Last Admin: 07/15/20 09:04 Dose: 40 mg Documented by: Fluconazole/Sodium Chloride (100 mg/ Premix) 50 mls @ 100 mls/hr IV Q24H [facility] Last Infusion: 07/14/20 21:26 Dose: Infused Documented by: Insulin Human Lispro (Humalog) 0 unit SUBCUT WITHMEALSANDBED [facility]; Protocol Last Admin: 07/15/20 12:41 Dose: 6 units Documented by: Levothyroxine Sodium (Levothyroxine) 225 mcg PO DAILY [facility] Last Admin: 07/15/20 09:00 Dose: 225 mcg Documented by: Metformin HCl (Glucophage) 1,000 mg PO BIDMEALS [facility] Mometasone Furoate/Formoterol Fumar (Dulera 200-5 Mcg) 2 puff IH BID [facility] Last Admin: 07/15/20 09:04 Dose: 2 puff Documented by: Discontinued Medications Sodium Chloride (Normal Saline) 1,000 mls @ 999 mls/hr IV .BOLUS ONE Stop: 07/13/20 18:29 Last Admin: 07/13/20 17:36 Dose: 999 mls/hr Documented by: Fluconazole/Sodium Chloride (100 mg/ Premix) 50 mls @ 100 mls/hr IV Q24H [facility] Last Admin: 07/13/20 21:39 Dose: Not Given Documented by: Sodium Chloride (Normal Saline) 1,000 mls @ 100 mls/hr IV ASDIRECTED [facility] Last Infusion: 07/15/20 10:41 Dose: 100 mls/hr Documented by: Insulin Human Lispro (Humalog) 20 unit SUBCUT ONETIME ONE Stop: 07/13/20 23:04 Last Admin: 07/13/20 23:20 Dose: 20 units Documented by: Insulin Human Regular (Humulin R) 20 unit SUBCUT ONETIME ONE Stop: 07/13/20 21:03 Last Admin: 07/13/20 21:37 Dose: 20 units Documented by: Metformin HCl (Glucophage) 500 mg PO BIDMEALS [facility] Last Admin: 07/14/20 17:23 Dose: 500 mg Documented by: Metformin HCl (Glucophage) 250 mg PO ONETIME ONE Stop: 07/14/20 17:56 Last Admin: 07/14/20 18:44 Dose: 250 mg Documented by: Metformin HCl (Glucophage) 750 mg PO BIDMEALS [facility] Last Admin: 07/15/20 09:01 Dose: 750 mg Documented by: - Exam Quality Assessment: DVT Prophylaxis. No: Supplemental Oxygen, Central Line/PICC, Urine Catheter General: Alert, Oriented, Cooperative, No Acute Distress HEENT: Pupils Equal, EOMI, Mucous Membr. Moist/[place] Neck: Supple, No JVD, No Thyromegaly Lungs: Clear to Auscultation, Normal Respiratory Effort. No: Crackles, Wheezing Cardiovascular: Regular Rate, Regular Rhythm, Murmurs GI/Abdominal Exam: Normal Bowel Sounds, Soft, Non-Tender. No: Guarding, Rebound (Female) Exam: Deferred Back Exam: Normal Inspection Extremities: Normal Inspection, No Pedal Edema Skin: Warm, Dry, Intact Neurological: No New Focal Deficit Psy/Mental Status: Alert, Normal Affect, Normal Mood Sepsis Event Note - Evaluation Sepsis Screening Result: No Definite Risk - Focused Exam Vital Signs: Vital Signs Temp Pulse Resp BP BP Pulse Ox 07/15/20 12:35 36.7 C 64 20 167/68 H 98 07/15/20 08:15 36.6 C 61 20 171/69 H 98 - Problem List & Annotations (1) Hyperglycemia SNOMED Code(s): 66393431 Code(s): R73.9 - HYPERGLYCEMIA, UNSPECIFIED Status: Acute Current Visit: No (2) UTI (urinary tract infection) SNOMED Code(s): 37574024 Code(s): N39.0 - URINARY TRACT INFECTION, SITE NOT SPECIFIED Status: Acute Current Visit: No Qualifiers: Urinary tract infection type: site unspecified Hematuria presence: with hematuria Qualified Code(s): N39.0 - Urinary tract infection, site not specified; R31.9 - Hematuria, unspecified - Problem List Review Problem List Initiated/Reviewed/Updated: Yes - My Orders Last 24 Hours: My Active Orders 07/15/20 18:00 metFORMIN [Glucophage] 1,000 mg PO BIDMEALS - Plan Plan:: This 65 yo female patient reports to the ED under the direction of an [facility] provider due to her blood sugar level being 552. The provider did not get the lab results until after the patient had left the clinic, so he called the patient and advised her to come to the ED. The patient reports she has been feeling very tired over the past week and had increased dizziness today. The patient normally sees a provider in [place]. The patient was seen in the ED 1 month ago and had an elevated blood sugar level, but the patient reports she forgot to follow-up with her primary care facility. The patient was also diagnosed with a yeast infection through her clinic visit (a script was called into [facility]). she is admitted fo Hyperglycemia and also yeast Infection 1. Hyperglycemia: New onset of Diabetes and continue oral hypoglycemic -Will check Blood sugar and continue sliding scale coverage Insulin -Will stop NS [ was at 100 mlhr] -Will change Metformin to 1000 mg BID [ was at 750 mg 2 times day] - continue Blood sugar check 4 times a day and cover with sliding scale insulin 2. Pt had dysuria : her wet prep/Tunde prep showed yeast or budding yeast - Will continue Fluconazole at 100 mg IV daily 3. Hypothyroidism: Continue Levothyroxine 4, COPD: Continue Advair and albuterol 5. DVT prophylaxis: continue Enoxaparin 6. Hyponatremia: This is pseudohyponatremia from hyperglycemia, corrected sodium 137 meq/L 7. Hypokalemia: This is likely from osmotic diuresis and has received potassium chloride 40 meq PO X 1 dose on 07/14 -Recheck BMP in AM Code Status: Full code
[2020-07-15] MEDS: metFORMIN 500 MG Tab PO SCH (17:21)
[2020-07-15] MEDS: Fluconazole/Normal Saline 100 MG in Premix Bag 1 BAG IV SCH (20:08)
[2020-07-16] MEDS: metFORMIN 500 MG Tab PO SCH (08:55)
[2020-07-16] MEDS: Insulin Lispro 100 Units/ML 3 ML Vial SUBCUT SCH ×2 (08:56→13:00)
[2020-07-16] MEDS: Levothyroxine 75 MCG Tab PO SCH (08:57)
[2020-07-16] MEDS: Formoterol/Mometasone 200-5 MCG 8.8 GM Inhaler IH SCH (08:57)
[2020-07-16] MEDS ORDERED: Lisinopril 10 MG Tab PO SCH (09:00)
[2020-07-16] MEDS: Enoxaparin 40 MG/0.4 ML Syringe SUBCUT SCH (09:59)
--- NOTE | 2020-07-16 10:15 | PN ---
DATE: 07/16/2020 SUBJECTIVE: The patient is a 65-year-old female who was admitted because of new onset diabetes mellitus. The patient is doing fairly well. Blood sugars stills running slightly elevated, but better and patient currently denies any significant ongoing complaints. Denies any polyphagia or polydipsia, chest pain, shortness of breath, fever, chills. OBJECTIVE: Vital Signs: Blood pressure is 161/82, pulse of 61, respirations 20, temperature of 98.6, saturation is 97% on room air. Heart: Regular rate and rhythm. Normal S1 and S2. No gallops. No rubs. Lungs: Equal bilaterally. No crackles, no wheezing. Abdomen: Obese, soft, nontender. Extremities: Negative for any significant pedal edema. PLAN: We will discharge the patient home today. I am also going to add glipizide to her current regimen of metformin and I am also going to start the patient on lisinopril 10 mg a day for her blood pressure and I am going to have her follow up with her primary care provider, Anca Andrade this week for a recheck. [facility] /[id number]
[2020-07-16 13:16] VITALS: BP 158/78; PULSE 62
[2020-07-16] MEDS ORDERED: glipiZIDE 5 MG Tab.ER PO SCH (14:00)
--- NOTE | 2020-07-16 17:36 | DISCH ---
FINAL DIAGNOSES: 1. New onset type 2 diabetes mellitus. 2. Hypothyroidism. 3. Urinary tract infection with yeast. 4. Chronic obstructive pulmonary disease. 5. Obesity. 6. Hypertension. BRIEF HISTORY OF PRESENT ILLNESS: Please see H and P. PERTINENT LABS, X-RAY, AND OTHER TESTS ON ADMISSION: See H and P. HOSPITAL COURSE: The patient was admitted to General Medicine floor. She was started on sliding scale insulin and also started on metformin and was given Diflucan IV for the urinary tract infection (yeast). The patient did well. The patient's blood sugar slowly improved, but still remains slightly elevated, but otherwise the rest of the hospital course was unremarkable. She was subsequently discharged. CONDITION ON DISCHARGE: Improved. DISCHARGE INSTRUCTIONS: Glipizide will also be added to her regimen and she will be started on lisinopril for her hypertension, and she will follow up with her primary care provider, Anca Andrade in the next 5 to 7 days with comp panel, lipid profile, and A1c. [facility] /[id number]
== END 2020-07-16 13:00 | disposition home or self-care (01) | DRG 638 ==
LOC: DL.ED 17:21 → DL.MS 18:26 → OBSVTOIN 20:54
PROVIDERS: ADMIT Internal Medicine; ATTEND Internal Medicine
DX: E11.65 Type 2 diabetes mellitus with hyperglycemia (principal); E87.1 Hypo-osmolality and hyponatremia; N39.0 Urinary tract infection, site not specified; R31.9 Hematuria, unspecified; B37.49 Other urogenital candidiasis; E03.9 Hypothyroidism, unspecified; Z88.6 Allergy status to analgesic agent; J44.9 Chronic obstructive pulmonary disease, unspecified; E87.6 Hypokalemia; E66.9 Obesity, unspecified; H54.7 Unspecified visual loss; I10 Essential (primary) hypertension; N18.9 Chronic kidney disease, unspecified; E78.00 Pure hypercholesterolemia, unspecified; K57.90 Diverticulosis of intestine, part unspecified, without perforation or abscess without bleeding; I12.9 Hypertensive chronic kidney disease with stage 1 through stage 4 chronic kidney disease, or unspecified chronic kidney disease; E11.22 Type 2 diabetes mellitus with diabetic chronic kidney disease; G47.30 Sleep apnea, unspecified; E55.9 Vitamin D deficiency, unspecified; M19.90 Unspecified osteoarthritis, unspecified site; G89.29 Other chronic pain; M54.2 Cervicalgia; Z88.5 Allergy status to narcotic agent; Z87.442 Personal history of urinary calculi; Z88.2 Allergy status to sulfonamides; Z88.1 Allergy status to other antibiotic agents; Z79.890 Hormone replacement therapy; Z79.899 Other long term (current) drug therapy
CPT/HCPCS: 36415; 80053; 82009; 82962; 85025; 96360; 99285; J7030; 80048; 99284; A9270-GY; J1450; J1650; J1815-GY

== ENCOUNTER 2021-03-20 14:36 | Emergency (ER) | payer MEDICARE, MEDICAID ==
[2021-03-20] MEDS ORDERED: GI Cocktail Oral Solution 30 ML PO ONE (14:53)
--- NOTE | 2021-03-20 14:53 | EDM.PDOC ---
ED HPI GENERAL MEDICAL PROBLEM - General Stated Complaint: CHEST PAIN INTO LEFT ARM Time Seen by Provider: 03/20/21 14:52 Source of Information: Reports: Patient, Old Records, RN, RN Notes Reviewed History Limitations: Reports: No Limitations - History of Present Illness INITIAL COMMENTS - FREE TEXT/NARRATIVE: Patient presents to the ED via personal vehicle with complaints of chest pain. She reports a history of hypertension for which she is prescribed Lisinopril 10mg daily; hyperlipidemia for which she takes atorvastatin 10mg daily; DM II which is treated with Metformin 500mg BID; and hypothyroidism for which she takes Levothyroxine 100mcg daily. The patient reports the chest pain abruptly began approximately four hours ago while she was watching her cat kittens. She characterizes the pain as a burning in her chest that radiates down her left arm; she rates the pain at an 8/10. She reports the pain has maintained in severity but she has not taken any medications. She has noticed no alleviating or aggravating factors. She denies recent illness, fever, shaking chills, sore throat, palpitations, nausea, vomiting, dysuria, or diarrhea. She does attest to chronic shortness of breath that is not worsening and stable chronic cough related to Lisinopril. She denies a history of cardiac events but notes she has been anxious about cardiac health as her daughter recently experienced a heart attack. She denies history of tobacco, alcohol, or recreational drug use. - Related Data Allergies Allergy/AdvReac Type Severity Reaction Status Date / Time morphine Allergy Rash Verified 03/20/21 14:54 sulfamethoxazole Allergy Dizziness Verified 03/20/21 14:54 [From Bactrim] trimethoprim [From Bactrim] Allergy Dizziness Verified 03/20/21 14:54 hydrocodone bitartrate AdvReac Stomach Verified 03/20/21 14:54 [From Vicodin] Upset NSAIDS (Non-Steroidal AdvReac Nausea Verified 03/20/21 14:54 Anti-Inflamma Home Meds: Home Meds Albuterol [Ventolin HFA] 2 puff INH Q4H PRN 05/28/15 [History] Fluticasone/Salmeterol [Advair Diskus 250-50] 1 puff INH BID 05/28/15 [History] Cholecalciferol (Vitamin D3) [Vitamin D3] 2,000 units PO DAILY 03/09/18 [History] Levothyroxine 225 mcg PO DAILY 03/09/18 [History] Nystatin 1 applic TOP TID 07/13/20 [History] glipiZIDE [Glucotrol XL] 5 mg PO BIDDIURETIC 30 Days #60 tab.er 07/16/20 [Rx] lisinopriL [Prinivil] 10 mg PO DAILY 30 Days #30 tablet 07/16/20 [Rx] metFORMIN [Glucophage] 1,000 mg PO BIDMEALS 30 Days tablet 07/16/20 [Rx] Past Medical History HEENT History: Reports: Impaired Vision, Other (See Below) Other HEENT History: UPPER DENTURE, BOTTOM PARTIAL DENTURE, wears glasses Cardiovascular History: Reports: High Cholesterol, Hypertension Respiratory History: Reports: COPD, Intubation, Previous, Sleep Apnea, SOB Gastrointestinal History: Reports: Diverticulosis Genitourinary History: Reports: Chronic Renal Insuffiency, Hydronephrosis, Renal Calculus, UTI, 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 BILAT CARPAL TUNNEL SYNDROME Neurological History: Reports: Concussion Psychiatric History: Reports: Mood Swings Endocrine/Metabolic History: Reports: Hypothyroidism, Obesity/BMI 30+, Osteopenia, Vitamin D Deficiency Hematologic History: Reports: None Immunologic History: Reports: None Oncologic (Cancer) History: Reports: None Dermatologic History: Reports: None - Infectious Disease History Infectious Disease History: Reports: Chicken Pox, Measles, Mumps, TB Other Infectious Disease History: doesnt have TB but will test positive - Past Surgical History Head Surgeries/Procedures: Reports: None Cardiovascular Surgical History: Reports: Other (See Below) Other Cardiovascular Surgeries/Procedures: cardiac cath - PATIENT DENIES CARDIAC CATH 03/09/18. ELECTROCARDIOGRAM Respiratory Surgical History: Reports: None GI Surgical History: Reports: Appendectomy, Cholecystectomy, Colonoscopy, Hernia, Inguinal, Other (See Below) Other GI Surgeries/Procedures: DENIES INGUINAL HERNIA REPAIR 03/09/18 Female Surgical History: Reports: Hysterectomy, Lithotripsy/ESWL, Tubal Ligation, Ureteral Stent Endocrine Surgical History: Reports: None Neurological Surgical History: Reports: C-Spine Musculoskeletal Surgical History: Reports: Arthroscopic Knee, Carpal Tunnel, Joint Replacement Other Musculoskeletal Surgeries/Procedures:: TOTAL R) knee surg, RIGHT & LEFT (DENIES LEFT CARPAL TUNNEL RELEASE 03/09/18)carpal tunnel, neck surg Oncologic Surgical History: Reports: None Dermatological Surgical History: Reports: None Social & Family History - Family History Family Medical History: No Pertinent Family History - Caffeine Use Caffeine Use: Reports: Coffee Other Caffeine Use: 1 CUP DAILY - Living Situation & Occupation Living situation: Reports: Extended Care Facility ED ROS GENERAL - Review of Systems Review Of Systems: Comprehensive ROS is negative, except as noted in HPI. ED EXAM, GENERAL - Physical Exam Exam: See Below Exam Limited By: No Limitations General Appearance: Alert, No Apparent Distress Eye Exam: Bilateral Eye: EOMI, Normal Inspection, PERRL (3mm) Nose: Normal Inspection, Normal Mucosa, No Blood Throat/Mouth: Normal Inspection, Normal Lips, Normal Teeth, Normal Gums, Normal Oropharynx, Normal Voice, No Airway Compromise Head: Normocephalic Neck: Normal Inspection, Supple, Non-Tender, Full Range of Motion Respiratory/Chest: No Respiratory Distress, Lungs Clear, Normal Breath Sounds, No Accessory Muscle Use, Other (Chest wall tender to palpation) Cardiovascular: Normal Peripheral Pulses, Regular Rate, Rhythm, No Edema, No Gallop, No JVD, No Murmur, No Rub Peripheral Pulses: 2+: Radial (L), Radial (R) GI/Abdominal: Normal Bowel Sounds, Soft, Non-Tender, No Distention, No Mass, Pelvis Stable (Female) Exam: Deferred Rectal (Female) Exam: Deferred Back Exam: Normal Inspection, Full Range of Motion Extremities: Normal Inspection, Normal Range of Motion, No Pedal Edema, Normal Capillary Refill Neurological: Alert, Oriented, CN II-XII Intact, Normal Cognition, Normal Gait, No Motor/Sensory Deficits Psychiatric: Normal Affect, Normal Mood Skin Exam: Warm, Dry, Intact, Normal Color, No Rash. No: Ecchymosis, Erythema, Jaundice, Mottled, Pallor, Petechiae #1 Interpretation EKG Date: 03/20/21 Time: 14:45 Rhythm: Other (Sinus bradycardia) Rate (Beats/Min): 59 [place]: LAD-Left [place] Deviation P-Wave: Present QRS: Normal ST-T: Normal QT: Normal FL/PQ Interval: 0.188 Comparison: No Change Course - Vital Signs Last Recorded V/S: Last Vital Signs Temp 97 F 03/20/21 14:55 Pulse 60 03/20/21 14:55 Resp 16 03/20/21 14:55 BP 133/50 L 03/20/21 14:55 Pulse Ox 98 03/20/21 14:55 - Orders/Labs/Meds Orders: Active Orders 24 hr Category Date Time Status EKG Documentation Completion [RC] STAT Care 03/20/21 14:49 Active CULTURE URINE [RM] Stat Lab 03/20/21 15:43 Received Labs: Laboratory Tests 03/20/21 03/20/21 03/20/21 Range/Units 14:51 14:51 14:51 WBC 12.0 H (5.0-10.0) 10^3/uL RBC 4.82 (4.2-5.4) 10^6/uL Hgb 14.1 (12.0-16.0) g/dL Hct 41.5 (37.0-47.0) % MCV 86.1 D (80-100) fL MCH 29.3 (27.0-34.0) pg MCHC 34.0 (33.0-35.0) g/dL Plt Count 247 (150-450) 10^3/uL Neut % (Auto) 60.9 (42.2-75.2) % Lymph % (Auto) 27.7 (20.5-50.1) % [place] % (Auto) 7.9 (2-8) % Eos % (Auto) 3.2 H (1.0-3.0) % Baso % (Auto) 0.3 (0.0-1.0) % Sodium 141 (136-145) mmol/L Potassium 3.7 (3.5-5.1) mmol/L Chloride 103 (98-107) mmol/L Carbon Dioxide 27 (21-32) mmol/L Anion Gap 14.7 H (7-13) mEq/L BUN 13 (7-18) mg/dL Creatinine 1.01 (0.55-1.02) mg/dL Est Cr Clr Drug Dosing 47.31 mL/min Estimated GFR (MDRD) 55 BUN/Creatinine Ratio 12.9 (No establ ref range) Glucose 135 H (70-99) mg/dL Lactic Acid 1.2 (0.4-2.0) mmol/L Calcium 8.9 (8.5-10.1) mg/dL Magnesium 1.8 (1.8-2.4) mg/dL Total Bilirubin 0.6 (0.2-1.0) mg/dL AST 15 (15-37) U/L ALT 27 (14-59) U/L Alkaline Phosphatase 100 (46-116) U/L Troponin I < 0.017 (0.000-0.056) ng/mL C-Reactive Protein 1.2 H (0.0-0.9) mg/dL Total Protein 7.9 (6.4-8.2) g/dL Albumin 3.6 (3.4-5.0) g/dL Globulin 4.3 Albumin/Globulin Ratio 0.8 Urine Color (YELLOW) Urine Appearance (CLEAR) Urine pH (5.0-9.0) Ur Specific [place] (1.005-1.030) Urine Protein (NEGATIVE) Urine Glucose (UA) (NEGATIVE) Urine Ketones (NEGATIVE) Urine Occult Blood (NEGATIVE) Urine Nitrite (NEGATIVE) Urine Bilirubin (NEGATIVE) Urine Urobilinogen (0.2-1.0) mg/dL Ur Leukocyte Esterase (NEGATIVE) Urine RBC /HPF Urine WBC (0-5/HPF) /HPF Ur Epithelial Cells (NOT SEEN) /HPF Urine Bacteria (0-FEW/HPF) /HPF Urine Mucus (NOT SEEN) /LPF Urine Yeast (NOT SEEN) /HPF Urine Opiates Screen (NEGATIVE) Ur Oxycodone Screen (NEGATIVE) Urine Methadone Screen (NEGATIVE) Ur Barbiturates Screen (NEGATIVE) U Tricyclic Antidepress (NEGATIVE) Ur Phencyclidine Scrn (NEGATIVE) Ur Amphetamine Screen (NEGATIVE) U Methamphetamines Scrn (NEGATIVE) Urine MDMA Screen (NEGATIVE) U Benzodiazepines Scrn (NEGATIVE) Urine Cocaine Screen (NEGATIVE) U Marijuana (THC) Screen (NEGATIVE) Ethyl Alcohol < 3 (0) mg/dL 03/20/21 03/20/21 Range/Units 15:43 15:43 WBC (5.0-10.0) 10^3/uL RBC (4.2-5.4) 10^6/uL Hgb (12.0-16.0) g/dL Hct (37.0-47.0) % MCV (80-100) fL MCH (27.0-34.0) pg MCHC (33.0-35.0) g/dL Plt Count (150-450) 10^3/uL Neut % (Auto) (42.2-75.2) % Lymph % (Auto) (20.5-50.1) % [place] % (Auto) (2-8) % Eos % (Auto) (1.0-3.0) % Baso % (Auto) (0.0-1.0) % Sodium (136-145) mmol/L Potassium (3.5-5.1) mmol/L Chloride (98-107) mmol/L Carbon Dioxide (21-32) mmol/L Anion Gap (7-13) mEq/L BUN (7-18) mg/dL Creatinine (0.55-1.02) mg/dL Est Cr Clr Drug Dosing mL/min Estimated GFR (MDRD) BUN/Creatinine Ratio (No establ ref range) Glucose (70-99) mg/dL Lactic Acid (0.4-2.0) mmol/L Calcium (8.5-10.1) mg/dL Magnesium (1.8-2.4) mg/dL Total Bilirubin (0.2-1.0) mg/dL AST (15-37) U/L ALT (14-59) U/L Alkaline Phosphatase (46-116) U/L Troponin I (0.000-0.056) ng/mL C-Reactive Protein (0.0-0.9) mg/dL Total Protein (6.4-8.2) g/dL Albumin (3.4-5.0) g/dL Globulin Albumin/Globulin Ratio Urine Color Yellow (YELLOW) Urine Appearance Clear (CLEAR) Urine pH 6.0 (5.0-9.0) Ur Specific [place] >= 1.030 (1.005-1.030) Urine Protein 30 H (NEGATIVE) Urine Glucose (UA) Negative (NEGATIVE) Urine Ketones Negative (NEGATIVE) Urine Occult Blood Trace-intact H (NEGATIVE) Urine Nitrite Negative (NEGATIVE) Urine Bilirubin Negative (NEGATIVE) Urine Urobilinogen 0.2 (0.2-1.0) mg/dL Ur Leukocyte Esterase Trace H (NEGATIVE) Urine RBC 0-5 /HPF Urine WBC 5-10 H (0-5/HPF) /HPF Ur Epithelial Cells Many H (NOT SEEN) /HPF Urine Bacteria Rare (0-FEW/HPF) /HPF Urine Mucus Moderate H (NOT SEEN) /LPF Urine Yeast Few H (NOT SEEN) /HPF Urine Opiates Screen Negative (NEGATIVE) Ur Oxycodone Screen Negative (NEGATIVE) Urine Methadone Screen Negative (NEGATIVE) Ur Barbiturates Screen Negative (NEGATIVE) U Tricyclic Antidepress Negative (NEGATIVE) Ur Phencyclidine Scrn Negative (NEGATIVE) Ur Amphetamine Screen Negative (NEGATIVE) U Methamphetamines Scrn Negative (NEGATIVE) Urine MDMA Screen Negative (NEGATIVE) U Benzodiazepines Scrn Negative (NEGATIVE) Urine Cocaine Screen Negative (NEGATIVE) U Marijuana (THC) Screen Negative (NEGATIVE) Ethyl Alcohol (0) mg/dL Meds: Medications Discontinued Medications Generic Name Dose Route Start Last Admin Trade Name Freq PRN Reason Stop Dose Admin Al Hydroxide/Mg Hydroxide 30 ml 03/20/21 14:53 03/20/21 15:06 Gi Cocktail Oral Solution 30 Ml PO 03/20/21 14:54 30 ml ONETIME ONE Administration - Re-Assessments/Exams Free Text/Narrative Re-Assessment/Exam: 03/20/21 Given burning to chest, will treat acute pain with GI cocktail. EKG revealed sinus bradycardia with no evidence of acute myocardial ischemia. Troponin WNL. Given time of onset of symptoms and normal cardiac enzyme and appropriate EKG, patient has essentially ruled herself out of cardiac ischemia. CXR unremarkable for acute processes. WBC elevated at 12 with no left shift present; CBC otherwise unremarkable for acute processes. Patient verbalized improvement in chest pain following GI cocktail. CMP unremarkable for acute processes; electrolytes, liver function, and kidney function appropriate. UA remarkable for yeast; patient states she is currently being treated for a vaginal yeast infection via her PCP. Additional findings of examination, imaging, and blood work reviewed with patient. Will treat patient with omeprazole for GERD; instructed to follow up with PCP following course. Red flag signs and symptoms which would warrant reevaluation reviewed. Patient verbalized understanding and agreement with the plan of care. Departure - Departure Time of Disposition: 16:12 Disposition: Home, Self-Care 01 Condition: Good Clinical Impression: Yeast infection GERD (gastroesophageal reflux disease) Qualifiers: Esophagitis presence: without esophagitis Qualified Code(s): K21.9 - Gastro- esophageal reflux disease without esophagitis Instructions: Gastroesophageal Reflux Disease, Adult, [id number] Forms: ED Department Discharge Additional Instructions: Rx: omeprazole 1.) Take the omeprazole daily for 14 days. 2.) Continue with medications for yeast infection, as previously prescribed. 3.) Follow up with primary care provider regarding today's visit following course of omeprazole, or sooner as warranted. Sepsis Event Note (ED) - Focused Exam Vital Signs: Vital Signs Temp Pulse Resp BP Pulse Ox 03/20/21 14:55 97 F 60 16 133/50 L 98 - My Orders Last 24 Hours: My Active Orders 03/20/21 14:49 EKG Documentation Completion [RC] STAT 03/20/21 15:43 CULTURE URINE [RM] Stat - Assessment/Plan Last 24 Hours: My Active Orders 03/20/21 14:49 EKG Documentation Completion [RC] STAT 03/20/21 15:43 CULTURE URINE [RM] Stat
[2021-03-20 15:03] VITALS: BP 133/50; PULSE 60
[2021-03-20 15:22] LABS: ANION GAP 14.7 mEq/L (7-13); CHLORIDE,CL 103 mmol/L (98-107); SODIUM,NA 141 mmol/L (136-145)
--- NOTE | 2021-03-20 15:22 | CR ---
EXAMINATION: Chest 1V Frontal SEX: Female AGE: 65 years CLINICAL HISTORY: 65-year-old female presents emergency department with CHEST PAIN. (Comparison CXR 04 October 2010) Interpretation: No cardiopulmonary abnormality. 1. Normal cardiac silhouette (size and configuration). External cardiac technologist leads. 2. No pulmonary vascular congestion, cephalization of flow, alveolar edema or dependent pleural fluid accumulation (no effusion). 3. No new lung mass, hilar lymphadenopathy or focal lobar alveolar consolidation. No atelectasis/collapse. No peripheral "groundglass" interstitial lung densities. 4. No pneumothorax or pneumomediastinum. Midline tracheal airway unremarkable. No free subdiaphragmatic air
== END 2021-03-20 16:23 | disposition home or self-care (01) ==
LOC: DL.ED 14:36
DX: K21.9 Gastro-esophageal reflux disease without esophagitis (principal); B37.9 Candidiasis, unspecified; J44.9 Chronic obstructive pulmonary disease, unspecified; I12.9 Hypertensive chronic kidney disease with stage 1 through stage 4 chronic kidney disease, or unspecified chronic kidney disease; N18.9 Chronic kidney disease, unspecified; E03.9 Hypothyroidism, unspecified; E66.9 Obesity, unspecified; Z68.41 Body mass index [BMI] 40.0-44.9, adult; Z88.5 Allergy status to narcotic agent; Z88.2 Allergy status to sulfonamides; Z88.1 Allergy status to other antibiotic agents; Z79.84 Long term (current) use of oral hypoglycemic drugs; Z79.899 Other long term (current) drug therapy
CPT/HCPCS: 36415; 71045; 80053; 80305; 80307; 81001; 83605; 83735; 84484; 85025; 86140; 87086; 93005; 93010; 99284; 99285; A9270

== ENCOUNTER 2021-09-15 10:32 | Emergency (ER) | payer MEDICARE, MEDICAID ==
[2021-09-15] MEDS ORDERED: GI Cocktail Oral Solution 30 ML PO ONE (10:39)
--- NOTE | 2021-09-15 10:39 | EDM.PDOC ---
ED HPI GENERAL MEDICAL PROBLEM - General Stated Complaint: [id number] LOT OF CHEST PAIN DOWN LEFT ARM AND BACK Time Seen by Provider: 09/15/21 10:38 Source of Information: Reports: Patient, Old Records, RN, RN Notes Reviewed History Limitations: Reports: No Limitations - History of Present Illness INITIAL COMMENTS - FREE TEXT/NARRATIVE: Justina is a 66 y/o female who presents to the ED via personal vehicle with complaints of chest pain and nausea. The patient reports her symptoms began approximately one week ago and have maintained in severity over that time. She characterizes her pain as sharp and notes it radiates into her shoulder and back; it worsens . She denies recent illness, fever, shaking chills, dizziness, vision changes, cough, sore throat, palpitations, abdominal pain, vomiting, dysuria, constipation, or diarrhea. The patient denies tobacco, alcohol, or recreational drug use. She has not taken any medications or performed supportive cares for her symptoms. Left Chest Pain Score (Numeric/FACES): 8 - Related Data Allergies Allergy/AdvReac Type Severity Reaction Status Date / Time morphine Allergy Rash Verified 09/15/21 10:42 sulfamethoxazole Allergy Dizziness Verified 09/15/21 10:42 [From Bactrim] trimethoprim [From Bactrim] Allergy Dizziness Verified 09/15/21 10:42 hydrocodone bitartrate AdvReac Stomach Verified 09/15/21 10:42 [From Vicodin] Upset NSAIDS (Non-Steroidal AdvReac Nausea Verified 09/15/21 10:42 Anti-Inflamma Home Meds: Home Meds Albuterol [Ventolin HFA] 2 puff INH Q4H PRN 05/28/15 [History] Fluticasone/Salmeterol [Advair Diskus 250-50] 1 puff INH BID 05/28/15 [History] Cholecalciferol (Vitamin D3) [Vitamin D3] 2,000 units PO DAILY 03/09/18 [History] Levothyroxine 100 mcg PO DAILY 03/09/18 [History] lisinopriL [Prinivil] 10 mg PO DAILY 30 Days #30 tablet 07/16/20 [Rx] metFORMIN [Glucophage] 1,000 mg PO BIDMEALS 30 Days tablet 07/16/20 [Rx] Albuterol/Ipratropium [DuoNeb 3.0-0.5 MG/3 ML] 1 vial NEB Q4H PRN 06/04/21 [History] Betamethasone/Clotrimazole [Lotrisone] 1 applic TOP ASDIRECTED 06/04/21 [History] Cranberry Fruit [Cranberry] 450 mg PO DAILY 06/04/21 [History] hydroCHLOROthiazide [Hydrochlorothiazide] 25 mg PO DAILY 06/04/21 [History] Past Medical History HEENT History: Reports: Impaired Vision, Other (See Below) Other HEENT History: UPPER DENTURE, BOTTOM DENTURE, wears glasses Cardiovascular History: Reports: Angina Other Cardiovascular History: Pain between shoulder blade and breast on the left side, Tylenol helps. Respiratory History: Reports: COPD, SOB Other Respiratory History: Hx of 2nd hand smoke. Gastrointestinal History: Reports: Cholelithiasis Genitourinary History: Reports: Renal Calculus, Other (See Below) Other Genitourinary History: Renal stent for kidney stones, last was over a year ago. 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 BILAT CARPAL TUNNEL SYNDROME Neurological History: Reports: Concussion Psychiatric History: Reports: Depression, Emotional Problems Endocrine/Metabolic History: Reports: Diabetes, Type II, Hypothyroidism, Obesity/BMI 30+, Vitamin D Deficiency Hematologic History: Reports: Anemia Immunologic History: Reports: None Oncologic (Cancer) History: Reports: None Dermatologic History: Reports: None - Infectious Disease History Infectious Disease History: Reports: Chicken Pox, Measles, Mumps, Rubella, TB Other Infectious Disease History: doesnt have TB but will test positive - Past Surgical History Head Surgeries/Procedures: Reports: None HEENT Surgical History: Reports: Oral Surgery Cardiovascular Surgical History: Reports: Other (See Below) Other Cardiovascular Surgeries/Procedures: cardiac cath - PATIENT DENIES CARDIAC CATH 03/09/18. ELECTROCARDIOGRAM Respiratory Surgical History: Reports: None GI Surgical History: Reports: Appendectomy, Cholecystectomy Other GI Surgeries/Procedures: DENIES INGUINAL HERNIA REPAIR 03/09/18 Female Surgical History: Reports: Hysterectomy Endocrine Surgical History: Reports: None Neurological Surgical History: Reports: Laminectomy Other Neurological Surgeries/Procedures: Removed vertebra in neck d/t lack of feeling in right arm, cut and was bleeding and didn't feel it. Musculoskeletal Surgical History: Reports: Knee Replacement Other Musculoskeletal Surgeries/Procedures:: June 2009 right knee replacement and toes tingle and go numb since then. Oncologic Surgical History: Reports: Biopsy of Breast Other Oncologic Surgeries/Procedures: Benign Dermatological Surgical History: Reports: Skin Biopsy Social & Family History - Family History Family Medical History: No Pertinent Family History - Caffeine Use Caffeine Use: Reports: Coffee Other Caffeine Use: 1-2 cups of coffee - Living Situation & Occupation Living situation: Reports: Extended Care Facility ED ROS GENERAL - Review of Systems Review Of Systems: Comprehensive ROS is negative, except as noted in HPI. ED EXAM, GENERAL - Physical Exam Exam: See Below Exam Limited By: No Limitations General Appearance: Alert, No Apparent Distress Eye Exam: Bilateral Eye: EOMI, Normal Inspection, PERRL (3mm) Ears: Normal External Exam, Normal Canal, Hearing Grossly Normal, Normal TMs Ear Exam: Bilateral Ear: Auricle Normal, Canal Normal, TM normal Nose: Normal Inspection, Normal Mucosa, No Blood Throat/Mouth: Normal Inspection, Normal Oropharynx, Normal Voice, No Airway Compromise Head: Atraumatic, Normocephalic Neck: Normal Inspection, Supple, Non-Tender, Full Range of Motion Respiratory/Chest: No Respiratory Distress, Lungs Clear, Normal Breath Sounds, No Accessory Muscle Use, Chest Non-Tender. No: Crackles, Rales, Rhonchi, Wheezing, Stridor Cardiovascular: Normal Peripheral Pulses, Regular Rate, Rhythm, No Gallop, No Murmur, No Rub Peripheral Pulses: 2+: Radial (L), Radial (R) GI/Abdominal: Normal Bowel Sounds, Soft, Non-Tender, No Distention, No Abnormal Bruit, No Mass, Pelvis Stable (Female) Exam: Deferred Rectal (Female) Exam: Deferred Back Exam: Normal Inspection, Full Range of Motion Extremities: Normal Inspection, Normal Range of Motion, Non-Tender, No Pedal Edema, Normal Capillary Refill Neurological: Alert, Oriented, CN II-XII Intact, Normal Cognition, Normal Gait, No Motor/Sensory Deficits Psychiatric: Normal Affect, Normal Mood Skin Exam: Warm, Dry, Intact, Normal Color, No Rash. No: Cyanosis, Jaundice, Mottled, Pallor Lymphatic: No Adenopathy #1 Interpretation EKG Date: 09/15/21 Time: 10:41 Rhythm: NSR Rate (Beats/Min): 64 Palacios: LAD-Left Palacios Deviation P-Wave: Present QRS: Normal ST-T: Normal QT: Normal MA/PQ Interval: 0.19 Comparison: No Change EKG Interpretation Comments: NSR; q-wave in III; No evidence of acute myocardial ischemia Course - Vital Signs Last Recorded V/S: Last Vital Signs Temp 95.5 F L 09/15/21 10:42 Pulse 66 09/15/21 10:42 Resp 21 H 09/15/21 10:42 BP 172/87 H 09/15/21 10:42 Pulse Ox 92 L 09/15/21 10:42 - Orders/Labs/Meds Labs: Laboratory Tests 09/15/21 09/15/21 09/15/21 Range/Units 10:40 10:40 10:40 WBC 12.5 H (5.0-10.0) 10^3/uL RBC 5.09 (4.2-5.4) 10^6/uL Hgb 14.9 (12.0-16.0) g/dL Hct 42.6 (37.0-47.0) % MCV 83.7 (80-100) fL MCH 29.3 (27.0-34.0) pg MCHC 35.0 (33.0-35.0) g/dL Plt Count 270 (150-450) 10^3/uL Neut % (Auto) 66.6 (42.2-75.2) % Lymph % (Auto) 22.2 (20.5-50.1) % [place] % (Auto) 7.9 (2-8) % Eos % (Auto) 2.9 (1.0-3.0) % Baso % (Auto) 0.4 (0.0-1.0) % Sodium 140 (136-145) mmol/L Potassium 3.4 L (3.5-5.1) mmol/L Chloride 100 (98-107) mmol/L Carbon Dioxide 27 (21-32) mmol/L Anion Gap 16.4 H (7-13) mEq/L BUN 17 (7-18) mg/dL Creatinine 1.06 H (0.55-1.02) mg/dL Est Cr Clr Drug Dosing 44.47 mL/min Estimated GFR (MDRD) 52 BUN/Creatinine Ratio 16.0 (No establ ref range) Glucose 168 H (70-99) mg/dL Calcium 9.4 (8.5-10.1) mg/dL Total Bilirubin 0.6 (0.2-1.0) mg/dL AST 24 (15-37) U/L ALT 46 (14-59) U/L Alkaline Phosphatase 99 (46-116) U/L Troponin I High Sens 6 (<=51) pg/mL C-Reactive Protein 1.4 H (0.0-0.9) mg/dL B-Natriuretic Peptide 8 (0-100) pg/ml Total Protein 8.2 (6.4-8.2) g/dL Albumin 3.7 (3.4-5.0) g/dL Globulin 4.5 Albumin/Globulin Ratio 0.8 Amylase 86 (25-115) U/L Lipase 144 (73-393) U/L TSH, Ultra Sensitive 3.32 (0.36-3.74) uIU/mL Meds: Medications Discontinued Medications Generic Name Dose Route Start Last Admin Trade Name Freq PRN Reason Stop Dose Admin Acetaminophen 1,000 mg 09/15/21 10:58 09/15/21 11:34 Acetaminophen 500 Mg Tab PO 09/15/21 10:59 1,000 mg ONETIME ONE Administration Al Hydroxide/Mg Hydroxide 30 ml 09/15/21 10:39 09/15/21 11:21 Gi Cocktail Oral Solution 30 Ml PO 09/15/21 10:40 Not Given ONETIME ONE Ondansetron HCl 4 mg 09/15/21 10:58 09/15/21 11:20 Ondansetron 4 Mg/2 Ml Sdv IVPUSH 09/15/21 10:59 4 mg ONETIME ONE Administration - Radiology Interpretation Free Text/Narrative:: [facility] Final Radiology Report Call: [phone] assistance Online chat: [email or web address] Name: JUSTINA CANO Age: 66Years F Date: 09/15/2021 SSN: -- : [id number] Study: CR CHEST 1V FRONTAL Requesting Physician: Gloria Page Images: 1 Addl Studies: Provided Clinical History: Chest pain; Decreased breath sounds Contrast: Contrast Medium: Contrast Amount: Contrast Method: CONFIDENTIALITY STATEMENT This report is intended only for use by the referring physician, and only in accordance with law. If you received this in error, call [phone]. Page 1 of 1 PROCEDURE INFORMATION: Exam: XR Chest Exam date and time: 09/15/2021 11:04 AM Age: 66 years old Clinical indication: Pain; Left-sided; Additional info: Chest pain; Decreased breath sounds TECHNIQUE: Imaging protocol: XR of the chest. Views: 1 view. COMPARISON: CR Chest 1V Frontal 03/20/2021 3:14 PM FINDINGS: Lungs: There is mild increase in interstitial markings within the lungs. This is nonspecific. No pneumonia or pulmonary edema is present. Pleural spaces: Unremarkable. No pleural effusion. No pneumothorax. Heart/Mediastinum: Unremarkable. No cardiomegaly. Bones/joints: Unremarkable. IMPRESSION: Nonspecific chronic interstitial change. No acute cardiopulmonary disease present. Thank you for allowing us to participate in the care of your patient. Dictated and Authenticated by: Musa Resendez MD 09/15/2021 11:53 AM Central Time ([place] & [place]) - Re-Assessments/Exams Free Text/Narrative Re-Assessment/Exam: 09/15/21 CXR and EKG obtained while labs pending. Zofran 4mg IVP administered. Findings of examination, lab work, and imaging reviewed with patient. Supportive cares discussed. Patient instructed to follow up with primary care provider in regarding todays visit. Red flag signs and symptoms which would warrant immediate reevaluation reviewed. Patient verbalized understanding and agreement with the plan of care. Departure - Departure Time of Disposition: 12:24 Disposition: Home, Self-Care 01 Condition: Good Clinical Impression: Chest wall pain Left shoulder pain Qualifiers: Chronicity: acute Qualified Code(s): M25.512 - Pain in left shoulder Instructions: Shoulder Pain, Chest Wall Pain Referrals: Conrad Burgess NP [Primary Care Provider] - Forms: ED Department Discharge Additional Instructions: 1.) You may continue with acetaminophen (Tylenol) 650mg every six hours, as pain persists. 2.) You may apply cold compresses to the area as pain and swelling persist, 20 minutes every hour. 3.) You may apply BioFreeze (or a similar ointment/cream) to the affected area, as pain persists. 4.) Follow up with your primary care provider in 3-5 days regarding todays visit, or return to the emergency department with any worsening symptoms.
[2021-09-15 10:45] VITALS: BP 172/87; PULSE 66
[2021-09-15] MEDS ORDERED: Ondansetron 4 MG/2 ML SDV IVPUSH ONE (10:58)
[2021-09-15] MEDS ORDERED: Acetaminophen 500 MG Tab PO ONE (10:58)
[2021-09-15 11:10] LABS: ANION GAP 16.4 mEq/L (7-13)
--- NOTE | 2021-09-15 11:54 | CR ---
PROCEDURE INFORMATION: Exam: XR Chest Exam date and time: 09/15/2021 11:04 AM Age: 66 years old Clinical indication: Pain; Left-sided; Additional info: Chest pain; Decreased breath sounds TECHNIQUE: Imaging protocol: XR of the chest. Views: 1 view. COMPARISON: CR Chest 1V Frontal 03/20/2021 3:14 PM FINDINGS: Lungs: There is mild increase in interstitial markings within the lungs. This is nonspecific. No pneumonia or pulmonary edema is present. Pleural spaces: Unremarkable. No pleural effusion. No pneumothorax. Heart/Mediastinum: Unremarkable. No cardiomegaly. Bones/joints: Unremarkable. IMPRESSION: Nonspecific chronic interstitial change. No acute cardiopulmonary disease present.
== END 2021-09-15 12:30 | disposition home or self-care (01) ==
LOC: DL.ED 10:32
DX: R07.89 Other chest pain (principal); M25.512 Pain in left shoulder; J44.9 Chronic obstructive pulmonary disease, unspecified; E11.9 Type 2 diabetes mellitus without complications; E03.9 Hypothyroidism, unspecified; E66.9 Obesity, unspecified; Z68.42 Body mass index [BMI] 45.0-49.9, adult; Z88.5 Allergy status to narcotic agent; Z88.2 Allergy status to sulfonamides; Z88.8 Allergy status to other drugs, medicaments and biological substances; Z79.84 Long term (current) use of oral hypoglycemic drugs; Z79.899 Other long term (current) drug therapy
CPT/HCPCS: 36415; 71045; 80053; 82150; 83690; 83880; 84443; 84484; 85025; 86140; 93005; 96374; 99285; A9270; J2405

== ENCOUNTER 2021-11-07 13:21 | Emergency (ER) | payer MEDICARE, MEDICAID ==
[2021-11-07] MEDS ORDERED: Sodium Chloride 0.9% 10 ML Syringe FLUSH PRN (14:16)
[2021-11-07] MEDS ORDERED: Sodium Chloride 0.9% 1,000 ML IV ONE ×2 (14:17→15:36)
[2021-11-07] MEDS ORDERED: Ondansetron 4 MG/2 ML SDV IVPUSH ONE (14:19)
--- NOTE | 2021-11-07 14:37 | EDM.PDOC ---
ED HPI GENERAL MEDICAL PROBLEM - General Chief Complaint: Diabetic Complaint Stated Complaint: VERY HIGH BLOOD SUGAR 363 / VOMITING Time Seen by Provider: 11/07/21 14:30 Source of Information: Reports: Patient History Limitations: Reports: No Limitations - History of Present Illness INITIAL COMMENTS - FREE TEXT/NARRATIVE: 66 y/o F c/o dizziness, sob, cough, NV, sneezing, runny nose, high blood sugars and burning with urination for a week. Was seen at the clinic on Thursday and tested for flu and COVID all of which where negative. The clinic provider Mireille placed pt on an antibiotic as well as 2 white pills but pt does not know what either one was or what specific infection was being treated. Hx of type II diabetes, is on metformin. Hx of COPD is not on o2 normally. Denies francisco, vision prob, cp, neck pn, fever, chills, abd pn, ext pain, drugs, etoh. - Related Data Allergies Allergy/AdvReac Type Severity Reaction Status Date / Time morphine Allergy Rash Verified 09/15/21 10:42 sulfamethoxazole Allergy Dizziness Verified 09/15/21 10:42 [From Bactrim] trimethoprim [From Bactrim] Allergy Dizziness Verified 09/15/21 10:42 hydrocodone bitartrate AdvReac Stomach Verified 09/15/21 10:42 [From Vicodin] Upset NSAIDS (Non-Steroidal AdvReac Nausea Verified 09/15/21 10:42 Anti-Inflamma Home Meds: Home Meds Albuterol [Ventolin HFA] 2 puff INH Q4H PRN 05/28/15 [History] Fluticasone/Salmeterol [Advair Diskus 250-50] 1 puff INH BID 05/28/15 [History] Cholecalciferol (Vitamin D3) [Vitamin D3] 2,000 units PO DAILY 03/09/18 [History] Levothyroxine 100 mcg PO DAILY 03/09/18 [History] lisinopriL [Prinivil] 10 mg PO DAILY 30 Days #30 tablet 07/16/20 [Rx] metFORMIN [Glucophage] 1,000 mg PO BIDMEALS 30 Days tablet 07/16/20 [Rx] Albuterol/Ipratropium [DuoNeb 3.0-0.5 MG/3 ML] 1 vial NEB Q4H PRN 06/04/21 [History] Betamethasone/Clotrimazole [Lotrisone] 1 applic TOP ASDIRECTED 06/04/21 [History] Cranberry Fruit [Cranberry] 450 mg PO DAILY 06/04/21 [History] hydroCHLOROthiazide [Hydrochlorothiazide] 25 mg PO DAILY 06/04/21 [History] Past Medical History HEENT History: Reports: Impaired Vision, Other (See Below) Other HEENT History: UPPER DENTURE, BOTTOM DENTURE, wears glasses Cardiovascular History: Reports: Angina Other Cardiovascular History: Pain between shoulder blade and breast on the left side, Tylenol helps. Respiratory History: Reports: COPD, SOB Other Respiratory History: Hx of 2nd hand smoke. Gastrointestinal History: Reports: Cholelithiasis Genitourinary History: Reports: Renal Calculus, Other (See Below) Other Genitourinary History: Renal stent for kidney stones, last was over a year ago. RN MEDICARE History: Reports: Musculoskeletal History: Reports: Back Pain, Chronic Other Musculoskeletal History: degenerative joint disease. BILAT CARPAL TUNNEL SYNDROME Neurological History: Reports: Concussion Psychiatric History: Reports: Depression, Emotional Problems Endocrine/Metabolic History: Reports: Diabetes, Type II, Hypothyroidism, Obesity/BMI 30+, Vitamin D Deficiency Hematologic History: Reports: Anemia Immunologic History: Reports: None Oncologic (Cancer) History: Reports: None Dermatologic History: Reports: None - Infectious Disease History Infectious Disease History: Reports: Chicken Pox, Measles, Mumps, Rubella, TB Other Infectious Disease History: doesnt have TB but will test positive - Past Surgical History Head Surgeries/Procedures: Reports: None HEENT Surgical History: Reports: Oral Surgery Cardiovascular Surgical History: Reports: Other (See Below) Other Cardiovascular Surgeries/Procedures: cardiac cath - PATIENT DENIES CARDIAC CATH 03/09/18. ELECTROCARDIOGRAM Respiratory Surgical History: Reports: None GI Surgical History: Reports: Appendectomy, Cholecystectomy Other GI Surgeries/Procedures: INGUINAL HERNIA REPAIR 03/09/18 Female Surgical History: Reports: Hysterectomy Endocrine Surgical History: Reports: None Neurological Surgical History: Reports: Laminectomy Other Neurological Surgeries/Procedures: Removed vertebra in neck d/t lack of feeling in right arm, cut and was bleeding and didn't feel it. Musculoskeletal Surgical History: Reports: Knee Replacement Other Musculoskeletal Surgeries/Procedures:: June 2009 right knee replacement and toes tingle and go numb since then. Oncologic Surgical History: Reports: Biopsy of Breast Other Oncologic Surgeries/Procedures: Benign Dermatological Surgical History: Reports: Skin Biopsy Social & Family History - Family History Family Medical History: No Pertinent Family History - Caffeine Use Caffeine Use: Reports: Coffee Other Caffeine Use: 1-2 cups of coffee - Living Situation & Occupation Living situation: Reports: Extended Care Facility ED ROS GENERAL - Review of Systems Review Of Systems: Comprehensive ROS is negative, except as noted in HPI. ED EXAM GENERAL NO PERIP PULSE - Physical Exam Exam: See Below Exam Limited By: No Limitations General Appearance: Alert, No Apparent Distress Eye Exam: Bilateral Eye: PERRL Ears: Normal External Exam, Normal Canal, Hearing Grossly Normal, Normal TMs Nose: Normal Inspection, Normal Mucosa, No Blood Throat/Mouth: Normal Inspection, Normal Lips, Normal Teeth, Normal Gums, Normal Oropharynx, Normal Voice, No Airway Compromise Head: Atraumatic, Normocephalic Neck: Normal Inspection, Supple, Non-Tender, Full Range of Motion Respiratory/Chest: No Respiratory Distress, Lungs Clear, Normal Breath Sounds, No Accessory Muscle Use, Chest Non-Tender Cardiovascular: Normal Peripheral Pulses, Regular Rate, Rhythm, No Edema, No Gallop, No JVD, No Murmur, No Rub GI/Abdominal: Soft, Non-Tender (Female) Exam: Deferred Rectal (Female) Exam: Deferred Back Exam: Normal Inspection, Full Range of Motion Extremities: Normal Inspection, Normal Range of Motion, Non-Tender, Normal Capillary Refill, No Pedal Edema Neurological: Alert Psychiatric: Normal Affect, Normal Mood Skin Exam: Warm, Dry, Intact Course - Vital Signs Last Recorded V/S: Last Vital Signs Temp 98.1 F 11/07/21 14:15 Pulse 95 11/07/21 14:15 Resp 14 11/07/21 14:15 BP 142/66 H 11/07/21 14:15 Pulse Ox - Orders/Labs/Meds Orders: Active Orders 24 hr Category Date Time Status Peripheral IV Care [RC] . DIRECTED Care 11/07/21 14:17 Active CULTURE BLOOD [BC] Stat Lab 11/07/21 15:26 Received CULTURE BLOOD [BC] Stat Lab 11/07/21 15:29 Received Sodium Chloride 0.9% [Saline Flush] Med 11/07/21 14:16 Active 10 ml FLUSH ASDIRECTED PRN Blood Culture x2 Reflex Set [OM.PC] Stat Oth 11/07/21 15:12 Ordered Peripheral IV Insertion Adult [OM.PC] Routine Oth 11/07/21 14:16 Ordered Medication Orders Sodium Chloride (Sodium Chloride 0.9% 10 Ml Syringe) 10 ml FLUSH ASDIRECTED PRN PRN Reason: Keep Vein Open Last Admin: 11/07/21 14:53 Dose: 10 ml Documented by: CHARLA Labs: Laboratory Tests 11/07/21 11/07/21 11/07/21 Range/Units 14:18 14:30 14:30 WBC 16.8 H (5.0-10.0) 10^3/uL RBC 5.29 (4.2-5.4) 10^6/uL Hgb 15.5 (12.0-16.0) g/dL Hct 45.2 (37.0-47.0) % MCV 85.4 (80-100) fL MCH 29.3 (27.0-34.0) pg MCHC 34.3 (33.0-35.0) g/dL Plt Count 336 (150-450) 10^3/uL Neut % (Auto) 86.0 H (42.2-75.2) % Lymph % (Auto) 10.6 L (20.5-50.1) % Tyler % (Auto) 3.1 (2-8) % Eos % (Auto) 0.1 L (1.0-3.0) % Baso % (Auto) 0.2 (0.0-1.0) % Add Manual Diff Yes Neutrophils % (Manual) 89 H (42-75) % Band Neutrophils % 2 % Lymphocytes % (Manual) 8 L (20-50) % Eosinophils % (Manual) 1 (1-3) % Sodium 135 L (136-145) mmol/L Potassium 4.2 (3.5-5.1) mmol/L Chloride 97 L (98-107) mmol/L Carbon Dioxide 22 (21-32) mmol/L Anion Gap 20.2 H (7-13) mEq/L BUN 24 H (7-18) mg/dL Creatinine 1.34 H (0.55-1.02) mg/dL Est Cr Clr Drug Dosing TNP Estimated GFR (MDRD) 39 BUN/Creatinine Ratio 17.9 (No establ ref range) Glucose 298 H (70-99) mg/dL POC Glucose 309 H (70-99) mg/dL Lactic Acid (0.4-2.0) mmol/L Calcium 9.7 (8.5-10.1) mg/dL Magnesium 2.2 (1.8-2.4) mg/dL Total Bilirubin 0.5 (0.2-1.0) mg/dL AST 23 (15-37) U/L ALT 46 (14-59) U/L Alkaline Phosphatase 94 (46-116) U/L C-Reactive Protein 1.3 H (0.0-0.9) mg/dL Total Protein 8.7 H (6.4-8.2) g/dL Albumin 3.9 (3.4-5.0) g/dL Globulin 4.8 Albumin/Globulin Ratio 0.8 Amylase 85 (25-115) U/L Lipase 163 (73-393) U/L Urine Color (YELLOW) Urine Appearance (CLEAR) Urine pH (5.0-9.0) Ur Specific [place] (1.005-1.030) Urine Protein (NEGATIVE) Urine Glucose (UA) (NEGATIVE) Urine Ketones (NEGATIVE) Urine Occult Blood (NEGATIVE) Urine Nitrite (NEGATIVE) Urine Bilirubin (NEGATIVE) Urine Urobilinogen (0.2-1.0) mg/dL Ur Leukocyte Esterase (NEGATIVE) U Hyaline Cast (Auto) Urine RBC (0-5) /HPF Urine WBC (0-5/HPF) /HPF Ur Epithelial Cells (NOT SEEN) /HPF Urine Bacteria (0-FEW/HPF) /HPF SARS CoV-2 RNA Rapid JIMMIE (NEGATIVE) 11/07/21 11/07/21 11/07/21 Range/Units 14:30 15:35 16:55 WBC (5.0-10.0) 10^3/uL RBC (4.2-5.4) 10^6/uL Hgb (12.0-16.0) g/dL Hct (37.0-47.0) % MCV (80-100) fL MCH (27.0-34.0) pg MCHC (33.0-35.0) g/dL Plt Count (150-450) 10^3/uL Neut % (Auto) (42.2-75.2) % Lymph % (Auto) (20.5-50.1) % Tyler % (Auto) (2-8) % Eos % (Auto) (1.0-3.0) % Baso % (Auto) (0.0-1.0) % Add Manual Diff Neutrophils % (Manual) (42-75) % Band Neutrophils % % Lymphocytes % (Manual) (20-50) % Eosinophils % (Manual) (1-3) % Sodium (136-145) mmol/L Potassium (3.5-5.1) mmol/L Chloride (98-107) mmol/L Carbon Dioxide (21-32) mmol/L Anion Gap (7-13) mEq/L BUN (7-18) mg/dL Creatinine (0.55-1.02) mg/dL Est Cr Clr Drug Dosing Estimated GFR (MDRD) BUN/Creatinine Ratio (No establ ref range) Glucose (70-99) mg/dL POC Glucose (70-99) mg/dL Lactic Acid 6.0 H* (0.4-2.0) mmol/L Calcium (8.5-10.1) mg/dL Magnesium (1.8-2.4) mg/dL Total Bilirubin (0.2-1.0) mg/dL AST (15-37) U/L ALT (14-59) U/L Alkaline Phosphatase (46-116) U/L C-Reactive Protein (0.0-0.9) mg/dL Total Protein (6.4-8.2) g/dL Albumin (3.4-5.0) g/dL Globulin Albumin/Globulin Ratio Amylase (25-115) U/L Lipase (73-393) U/L Urine Color Yellow (YELLOW) Urine Appearance Slightly cloudy (CLEAR) Urine pH 6.0 (5.0-9.0) Ur Specific [place] >= 1.030 (1.005-1.030) Urine Protein >=300 H (NEGATIVE) Urine Glucose (UA) 250 H (NEGATIVE) Urine Ketones Negative (NEGATIVE) Urine Occult Blood Moderate H (NEGATIVE) Urine Nitrite Negative (NEGATIVE) Urine Bilirubin Negative (NEGATIVE) Urine Urobilinogen 0.2 (0.2-1.0) mg/dL Ur Leukocyte Esterase Negative (NEGATIVE) U Hyaline Cast (Auto) Moderate Urine RBC 10-20 H (0-5) /HPF Urine WBC 10-20 H (0-5/HPF) /HPF Ur Epithelial Cells Many H (NOT SEEN) /HPF Urine Bacteria Moderate H (0-FEW/HPF) /HPF SARS CoV-2 RNA Rapid JIMMIE Negative (NEGATIVE) 11/07/21 Range/Units 17:41 WBC (5.0-10.0) 10^3/uL RBC (4.2-5.4) 10^6/uL Hgb (12.0-16.0) g/dL Hct (37.0-47.0) % MCV (80-100) fL MCH (27.0-34.0) pg MCHC (33.0-35.0) g/dL Plt Count (150-450) 10^3/uL Neut % (Auto) (42.2-75.2) % Lymph % (Auto) (20.5-50.1) % Tyler % (Auto) (2-8) % Eos % (Auto) (1.0-3.0) % Baso % (Auto) (0.0-1.0) % Add Manual Diff Neutrophils % (Manual) (42-75) % Band Neutrophils % % Lymphocytes % (Manual) (20-50) % Eosinophils % (Manual) (1-3) % Sodium (136-145) mmol/L Potassium (3.5-5.1) mmol/L Chloride (98-107) mmol/L Carbon Dioxide (21-32) mmol/L Anion Gap (7-13) mEq/L BUN (7-18) mg/dL Creatinine (0.55-1.02) mg/dL Est Cr Clr Drug Dosing Estimated GFR (MDRD) BUN/Creatinine Ratio (No establ ref range) Glucose (70-99) mg/dL POC Glucose (70-99) mg/dL Lactic Acid 3.0 H* (0.4-2.0) mmol/L Calcium (8.5-10.1) mg/dL Magnesium (1.8-2.4) mg/dL Total Bilirubin (0.2-1.0) mg/dL AST (15-37) U/L ALT (14-59) U/L Alkaline Phosphatase (46-116) U/L C-Reactive Protein (0.0-0.9) mg/dL Total Protein (6.4-8.2) g/dL Albumin (3.4-5.0) g/dL Globulin Albumin/Globulin Ratio Amylase (25-115) U/L Lipase (73-393) U/L Urine Color (YELLOW) Urine Appearance (CLEAR) Urine pH (5.0-9.0) Ur Specific [place] (1.005-1.030) Urine Protein (NEGATIVE) Urine Glucose (UA) (NEGATIVE) Urine Ketones (NEGATIVE) Urine Occult Blood (NEGATIVE) Urine Nitrite (NEGATIVE) Urine Bilirubin (NEGATIVE) Urine Urobilinogen (0.2-1.0) mg/dL Ur Leukocyte Esterase (NEGATIVE) U Hyaline Cast (Auto) Urine RBC (0-5) /HPF Urine WBC (0-5/HPF) /HPF Ur Epithelial Cells (NOT SEEN) /HPF Urine Bacteria (0-FEW/HPF) /HPF SARS CoV-2 RNA Rapid JIMMIE (NEGATIVE) Meds: Medications Generic Name Dose Route Start Last Admin Trade Name Freq PRN Reason Stop Dose Admin Sodium Chloride 10 ml 11/07/21 14:16 11/07/21 14:53 Sodium Chloride 0.9% 10 Ml Syringe FLUSH 10 ml ASDIRECTED PRN Administration Keep Vein Open Discontinued Medications Generic Name Dose Route Start Last Admin Trade Name Freq PRN Reason Stop Dose Admin Sodium Chloride 1,000 mls @ 999 mls/hr 11/07/21 14:17 11/07/21 14:54 Normal Saline IV 11/07/21 15:17 999 mls/hr .BOLUS ONE Administration Sodium Chloride 1,000 mls @ 999 mls/hr 11/07/21 15:36 11/07/21 16:00 Normal Saline IV 11/07/21 16:36 999 mls/hr .BOLUS ONE Administration Ondansetron HCl 4 mg 11/07/21 14:19 11/07/21 15:01 Ondansetron 4 Mg/2 Ml Sdv IVPUSH 11/07/21 14:20 4 mg ONETIME ONE Administration - Re-Assessments/Exams Free Text/Narrative Re-Assessment/Exam: 11/07/21 14:40 review of the pts recently filled RX's reveal she was prescribed prednisone and Azithromycin by her provider Conrad 11/07/21 18:14 The pt feels much better after fluids and med administration. Her repeat lactic is much improved. I believe the pt was suffering from dehydration which was contributing to her elevated lactic acid level. The elevated WBC is likely attributed to dehydration as well. Sources of infection such as pulmonary, urinary and intraabdominal were ruled out. It is likely t has a viral illness that is contributing to her symptoms. I will have her follow up in clinic tomorrow for reevaluation and lab check. I will also have her return to the ER if any new symptoms or concerns develop. 11/07/21 18:19 Departure - Departure Time of Disposition: 18:22 Disposition: Home, Self-Care 01 Condition: Good Clinical Impression: Dehydration, Lactic acidosis Leukocytosis Qualifiers: Leukocytosis type: unspecified Qualified Code(s): D72.829 - Elevated white blood cell count, unspecified - Discharge Information *PRESCRIPTION DRUG MONITORING PROGRAM REVIEWED*: Not Applicable *COPY OF PRESCRIPTION DRUG MONITORING REPORT IN PATIENT PAUL: Not Applicable Instructions: Dehydration, Adult, [id number] Forms: ED Department Discharge Additional Instructions: Do not take your Metformin for the next few days. Follow up in clinic tomorrow to be reevaluated by your primary care provider and have your labs redrawn. Drink plenty of fluids to maintain hydration. If any new symptoms or concerns develop contact your primary care facility or return to the ER. Sepsis Event Note (ED) - Focused Exam Vital Signs: Vital Signs Temp Pulse Resp BP 11/07/21 14:15 98.1 F 95 14 142/66 H - My Orders Last 24 Hours: My Active Orders 11/07/21 14:16 Sodium Chloride 0.9% [Saline Flush] 10 ml FLUSH ASDIRECTED PRN Peripheral IV Insertion Adult [OM.PC] Routine 11/07/21 14:17 Peripheral IV Care [RC] . DIRECTED 11/07/21 15:12 Blood Culture x2 Reflex Set [OM.PC] Stat 11/07/21 15:26 CULTURE BLOOD [BC] Stat 11/07/21 15:29 CULTURE BLOOD [BC] Stat - Assessment/Plan Last 24 Hours: My Active Orders 11/07/21 14:16 Sodium Chloride 0.9% [Saline Flush] 10 ml FLUSH ASDIRECTED PRN Peripheral IV Insertion Adult [OM.PC] Routine 11/07/21 14:17 Peripheral IV Care [RC] . DIRECTED 11/07/21 15:12 Blood Culture x2 Reflex Set [OM.PC] Stat 11/07/21 15:26 CULTURE BLOOD [BC] Stat 11/07/21 15:29 CULTURE BLOOD [BC] Stat
--- NOTE | 2021-11-07 15:03 | CR ---
EXAMINATION: Chest 1V Frontal SEX: Female AGE: 66 years CLINICAL HISTORY: 66-year-old female with shortness of breath and cough. Interpretation: Brassiere hardware artifacts. Less than optimal inspiratory effort obese female. No new signs of heart failure, lung mass, alveolar infiltrate or peripheral "groundglass" opacities since August 2021. No atelectasis/collapse. No cardiomegaly. No alveolar edema or dependent pleural effusions. No pneumothorax or pneumomediastinum. No free subdiaphragmatic air. CONCLUSION: No acute new cardiopulmonary abnormality.
[2021-11-07 15:15] LABS: ANION GAP 20.2 mEq/L (7-13); CHLORIDE,CL 97 mmol/L (98-107); SODIUM,NA 135 mmol/L (136-145)
[2021-11-07 16:04] VITALS: BP 142/66; PULSE 95
--- NOTE | 2021-11-07 16:25 | CT ---
EXAMINATION: Abdomen Pelvis wo Cont SEX: Female AGE: 66 years CLINICAL HISTORY: 66-year-old obese female emergency department with nausea and vomiting (elevated lactic acid). Renal disease. Scan technique: Volume acquisition of data emergency unenhanced CT scan of the abdomen and pelvis obtained with patient lying supine on the Siemens multi slice scanner [place], [place]. All data archived in the PACS system for storage, reformatting axial/sagittal/coronal planes and study. Interpretation: 1. Cholecystectomy (surgical clips RUQ). 2. Nephrolithiasis (multiple tiny calyceal calcifications both kidneys) without associated evidence of obstructive uropathy. Unenhanced, incompletely distended urinary bladder unremarkable. Apparent surgical absence of the uterus. 3. Tiny punctate calcifications scattered throughout the liver and spleen. 4. No pelvic or abdominal mass lesion. No pelvic, mesenteric or retroperitoneal lymphadenopathy. Sigmoid diverticulosis. No inflammatory "dirty" peritoneal fat, signs of mechanical bowel obstruction, ascites or free air. 5. Lung bases clear. Normal cardiac silhouette. No pericardial or pleural effusions. Calcifications normal caliber aorta. 6. Exaggerated lordosis; compression fracture T12 vertebral body (present 22 May 2021); associated mild retrolisthesis T11; L5-S1 disc degeneration and spondylosis. CONCLUSION: Sigmoid diverticulosis. Several surgeries. No sign of abdominal malignancy, acute peritonitis or mechanical bowel obstruction.
== END 2021-11-07 18:41 | disposition home or self-care (01) ==
LOC: DL.ED 13:21
DX: E11.10 Type 2 diabetes mellitus with ketoacidosis without coma (principal); E87.6 Hypokalemia; D72.829 Elevated white blood cell count, unspecified; J44.9 Chronic obstructive pulmonary disease, unspecified; E03.9 Hypothyroidism, unspecified; E66.9 Obesity, unspecified; Z68.30 Body mass index [BMI] 30.0-30.9, adult; Z88.5 Allergy status to narcotic agent; Z88.1 Allergy status to other antibiotic agents; Z88.8 Allergy status to other drugs, medicaments and biological substances; Z79.84 Long term (current) use of oral hypoglycemic drugs; Z79.899 Other long term (current) drug therapy; Z20.822 Contact with and (suspected) exposure to COVID-19
CPT/HCPCS: 36415; 71045; 74176; 80053; 81001; 82150; 82947; 83605; 83690; 83735; 85025; 86140; 87040; 96374; 99285-25; J2405; J7030; U0002

== ENCOUNTER 2022-01-02 13:53 | Emergency (ER) | payer MEDICARE, MEDICAID ==
[2022-01-02 14:35] VITALS: BP 174/88; PULSE 68
[2022-01-02 15:02] LABS: RESPIRATORY SYNCYTIAL VIR NAA NEGATIVE (NEGATIVE)
[2022-01-02 15:05] LABS: CORONAVIRUS COVID-19 NAA POSITIVE (NEGATIVE)
== END 2022-01-02 16:11 | disposition home or self-care (01) ==
LOC: DL.ED 13:53
DX: U07.1 COVID-19 (principal); J44.9 Chronic obstructive pulmonary disease, unspecified; E11.9 Type 2 diabetes mellitus without complications; E03.9 Hypothyroidism, unspecified; E66.9 Obesity, unspecified; Z68.42 Body mass index [BMI] 45.0-49.9, adult; Z88.5 Allergy status to narcotic agent; Z88.1 Allergy status to other antibiotic agents; Z88.8 Allergy status to other drugs, medicaments and biological substances; Z79.899 Other long term (current) drug therapy; Z79.84 Long term (current) use of oral hypoglycemic drugs
CPT/HCPCS: 0241U; 99283

== ENCOUNTER 2022-01-14 16:55 | Emergency (ER) | payer MEDICARE, MEDICAID ==
[2022-01-14 17:44] VITALS: BP 184/83; PULSE 63
== END 2022-01-14 21:15 | disposition left against medical advice (07) ==
LOC: DL.ED 16:55
DX: M25.552 Pain in left hip (principal); Z53.21 Procedure and treatment not carried out due to patient leaving prior to being seen by health care provider

== ENCOUNTER 2022-08-02 15:14 | Emergency (ER) | payer MEDICARE, MEDICAID ==
[2022-08-02 15:30] VITALS: PULSE 66
[2022-08-02] MEDS ORDERED: Sodium Chloride 0.9% 10 ML Syringe FLUSH PRN (15:40)
[2022-08-02] MEDS ORDERED: Aspirin 81 MG Tab.Chew PO ONE (15:42)
[2022-08-02] MEDS ORDERED: Nitroglycerin 0.4 MG Tab.SL SL PRN (15:42)
[2022-08-02 15:46] VITALS: BP 129/47
[2022-08-02 16:13] LABS: ANION GAP 13.4 mEq/L (7-13)
[2022-08-02 16:31] LABS: PTT,PARTIAL THROMBOPLSTIN TIME 25.1 SEC (22.0-34.0)
[2022-08-02 16:58] LABS: CORONAVIRUS COVID-19 NAA NEGATIVE (NEGATIVE); RESPIRATORY SYNCYTIAL VIR NAA NEGATIVE (NEGATIVE)
[2022-08-02] MEDS ORDERED: GI Cocktail Oral Solution 30 ML PO ONE (17:08)
== END 2022-08-02 17:54 | disposition home or self-care (01) ==
LOC: DL.ED 15:14
DX: R07.89 Other chest pain (principal); J44.9 Chronic obstructive pulmonary disease, unspecified; E11.9 Type 2 diabetes mellitus without complications; E03.9 Hypothyroidism, unspecified; E66.9 Obesity, unspecified; Z68.41 Body mass index [BMI] 40.0-44.9, adult; Z88.5 Allergy status to narcotic agent; Z88.1 Allergy status to other antibiotic agents; Z20.822 Contact with and (suspected) exposure to COVID-19
CPT/HCPCS: 0241U; 36415; 71045; 80053; 82150; 83690; 83880; 84484; 85025; 85379; 85610; 85730; 93005; 99285; A9270; J3490

== ENCOUNTER 2023-01-23 10:26 | Emergency (ER) | payer MEDICARE, MEDICAID ==
[2023-01-23] MEDS ORDERED: Sodium Chloride 0.9% 10 ML Syringe FLUSH PRN (10:32)
[2023-01-23 10:53] VITALS: BP 125/68; PULSE 73
[2023-01-23 11:28] LABS: ANION GAP 14.5 mEq/L (7-13)
== END 2023-01-23 12:27 | disposition home or self-care (01) ==
LOC: DL.ED 10:26
DX: R07.9 Chest pain, unspecified (principal); I10 Essential (primary) hypertension; E11.9 Type 2 diabetes mellitus without complications; J44.9 Chronic obstructive pulmonary disease, unspecified; E03.9 Hypothyroidism, unspecified; E66.9 Obesity, unspecified; Z68.41 Body mass index [BMI] 40.0-44.9, adult; Z88.5 Allergy status to narcotic agent; Z88.1 Allergy status to other antibiotic agents; Z79.899 Other long term (current) drug therapy; Z79.84 Long term (current) use of oral hypoglycemic drugs
CPT/HCPCS: 36415; 71045; 80053; 82150; 83605; 83690; 83735; 84145; 84439; 84443; 84484; 85025; 85610; 86140; 93005; 99284; 99285

== ENCOUNTER 2023-02-17 05:38 | Day surgery (SDC) | payer MEDICARE, MEDICAID ==
[~2023-02-17 05:38] MED LIST: Sodium Chloride 0.9% 10 ML Syringe FLUSH PRN; Sodium Chloride 0.9% 10 ML Syringe FLUSH SCH
[2023-02-17] MEDS ORDERED: Sodium Chloride 0.9% 10 ML Syringe FLUSH SCH (06:00)
[2023-02-17] MEDS ORDERED: Dextrose 5%-0.45% NaCl 1,000 ML IV SCH (06:00)
[2023-02-17] MEDS ORDERED: Midazolam 1 MG/ML 2 ML SDV ONE (06:58)
[2023-02-17] MEDS ORDERED: fentaNYL 100 MCG/2 ML SDV ONE (06:59)
[2023-02-17] MEDS ORDERED: fentaNYL 100 MCG/2 ML SDV IV ONE ×2 (07:05)
[2023-02-17] MEDS ORDERED: Midazolam 1 MG/ML 2 ML SDV IV ONE ×2 (07:05→07:06)
[2023-02-17 08:49] VITALS: BP 129/83; PULSE 58
== END 2023-02-17 09:00 | disposition home or self-care (01) ==
LOC: DL.ENDO 05:38
PROVIDERS: ATTEND Internal Medicine Gastroenterology
DX: K44.9 Diaphragmatic hernia without obstruction or gangrene (principal); K21.9 Gastro-esophageal reflux disease without esophagitis; K22.89 Other specified disease of esophagus; E78.5 Hyperlipidemia, unspecified; I12.9 Hypertensive chronic kidney disease with stage 1 through stage 4 chronic kidney disease, or unspecified chronic kidney disease; N18.9 Chronic kidney disease, unspecified; F41.1 Generalized anxiety disorder; E66.09 Other obesity due to excess calories; Z68.41 Body mass index [BMI] 40.0-44.9, adult
CPT/HCPCS: 43239; 87077; J2250; J3010; J7042

== ENCOUNTER 2023-03-06 13:17 | Emergency (ER) | payer MEDICARE, MEDICAID ==
[2023-03-06 13:45] VITALS: BP 137/89; PULSE 76
[2023-03-06] MEDS: Ondansetron 4 MG/2 ML SDV IV ONE (14:08)
[2023-03-06] MEDS: Sodium Chloride 0.9% 1,000 ML IV ONE ×2 (14:09→15:27)
[2023-03-06] MEDS: fentaNYL 100 MCG/2 ML SDV IVPUSH ONE (14:09)
[2023-03-06 14:33] LABS: ANION GAP 14.7 mEq/L (7-13)
[2023-03-06] MEDS: Iopamidol 612 MG/ML 100 ML Bottle IVPUSH ONE (15:03)
[2023-03-06] MEDS: Sodium Chloride 0.9% 10 ML Syringe FLUSH PRN (15:29)
[2023-03-06] MEDS: Midazolam 1 MG/ML 2 ML SDV IVPUSH ONE (15:48)
[2023-03-06] MEDS: Fluconazole/Normal Saline 200 MG in Premix Bag 1 BAG IV ONE (16:08)
[2023-03-06] MEDS: cefTRIAXone 2 GM Vial IVPUSH ONE (16:08)
== END 2023-03-06 16:50 ==
LOC: DL.ED 13:17
DX: K56.609 Unspecified intestinal obstruction, unspecified as to partial versus complete obstruction (principal); B37.41 Candidal cystitis and urethritis; N20.0 Calculus of kidney; J44.9 Chronic obstructive pulmonary disease, unspecified; E11.9 Type 2 diabetes mellitus without complications; E03.9 Hypothyroidism, unspecified; E66.9 Obesity, unspecified; Z88.5 Allergy status to narcotic agent; Z88.2 Allergy status to sulfonamides; Z88.6 Allergy status to analgesic agent; Z90.89 Acquired absence of other organs; Z90.49 Acquired absence of other specified parts of digestive tract; Z95.1 Presence of aortocoronary bypass graft; Z79.899 Other long term (current) drug therapy; Z79.84 Long term (current) use of oral hypoglycemic drugs; Z68.41 Body mass index [BMI] 40.0-44.9, adult
CPT/HCPCS: 36415; 71045; 74177; 80053; 81001; 82150; 82947; 83605; 83690; 85025; 87040; 87086; 96361; 96365; 96375; 99285; 99285-25; J0696; J1450; J2250; J2405; J3010; J3490; J7030; Q9967

== ENCOUNTER 2023-03-13 13:43 | Emergency (ER) | payer MEDICARE, MEDICAID ==
[2023-03-13] MEDS: Sodium Chloride 0.9% 10 ML Syringe FLUSH PRN ×3 (14:25→17:15)
[2023-03-13] MEDS ORDERED: Ketorolac 30 MG/ML SDV IVPUSH ONE (14:32)
[2023-03-13 14:33] LABS: ANION GAP 16.6 mEq/L (7-13)
[2023-03-13] MEDS ORDERED: Ciprofloxacin 500 MG Tab PO ONE (16:16)
[2023-03-13] MEDS ORDERED: cefTRIAXone 2 GM Vial IVPUSH ONE (16:40)
[2023-03-13] MEDS ORDERED: Ondansetron 4 MG/2 ML SDV IVPUSH ONE (16:58)
[2023-03-13 16:59] VITALS: BP 135/99; PULSE 72
== END 2023-03-13 17:50 ==
LOC: DL.ED 13:43
DX: N13.2 Hydronephrosis with renal and ureteral calculous obstruction (principal); K56.609 Unspecified intestinal obstruction, unspecified as to partial versus complete obstruction; E11.9 Type 2 diabetes mellitus without complications; E03.9 Hypothyroidism, unspecified; J44.9 Chronic obstructive pulmonary disease, unspecified; E66.9 Obesity, unspecified; Z68.41 Body mass index [BMI] 40.0-44.9, adult; Z88.5 Allergy status to narcotic agent; Z88.1 Allergy status to other antibiotic agents; Z88.8 Allergy status to other drugs, medicaments and biological substances; Z79.899 Other long term (current) drug therapy
CPT/HCPCS: 36415; 74018; 74176; 80053; 81001; 82150; 83605; 83690; 83735; 85025; 86140; 87086; 96374; 96375; 99284; 99285-25; J0696; J1885; J2405; J3490

== ENCOUNTER 2023-06-02 19:08 | Emergency (ER) | payer MEDICARE, MEDICAID ==
[2023-06-02 19:07] LABS: HEMATOCRIT 41.1 % (37.0-47.0); HEMOGLOBIN 14.2 g/dL (12.0-16.0); MEAN CORPUSCULAR HEMOGLOBIN 29.6 pg (27.0-34.0); MEAN CORPUSCULAR HGB CONC 34.5 g/dL (33.0-35.0); MEAN CORPUSCULAR VOLUME 85.6 fL (80-100); PLATELET COUNT,PLT 258 10^3/uL (150-450)
[~2023-06-02 19:08] MED LIST changes: +Iopamidol 612 MG/ML 100 ML Bottle IVPUSH ONE; +Naloxone 2 MG/2 ML Syringe IVPUSH PRN; -Sodium Chloride 0.9% 10 ML Syringe FLUSH SCH; +fentaNYL 100 MCG/2 ML SDV IVPUSH ONE
[2023-06-02 19:21] LABS: BASOPHILS PERCENT AUTO 0.8 % (0.0-1.0); EOSINOPHILS PERCENT AUTO 1.7 % (1.0-3.0); LYMPHOCYTES PERCENT AUTO 10.6 % (20.5-50.1); MONOCYTES PERCENT AUTO 6.9 % (2-8)
[2023-06-02 19:30] LABS: A/G RATIO 0.9; ALANINE AMINOTRANSFERASE,ALT 20 U/L (14-59); ALBUMIN 3.5 g/dL (3.4-5.0); ALKALINE PHOSPHATASE 85 U/L (46-116); ANION GAP 12.3 mEq/L (7-13); ASPARTATE AMNIOTRANSFERASE,AST 21 U/L (15-37); BILIRUBIN TOTAL 0.8 mg/dL (0.2-1.0); BLOOD UREA NITROGEN,BUN 24 mg/dL (7-18); BUN/CREATININE RATIO 15.4 (No establ ref range); CALCIUM 9.2 mg/dL (8.5-10.1); CARBON DIOXIDE,CO2 25 mmol/L (21-32); CHLORIDE,CL 102 mmol/L (98-107); CREATININE 1.56 mg/dL (0.55-1.02); GLUCOSE RANDOM 113 mg/dL (70-99); POTASSIUM,K 3.3 mmol/L (3.5-5.1); PROTEIN TOTAL,TP 7.2 g/dL (6.4-8.2); SODIUM,NA 136 mmol/L (136-145)
[2023-06-02 19:34] LABS: LACTIC ACID 1.5 mmol/L (0.4-2.0)
[2023-06-02 19:37] LABS: ESTIMATED GFR 36 mL/min (>=60)
[2023-06-02 19:53] VITALS: BP 111/61; PULSE 69
[2023-06-02] MEDS ORDERED: cefTRIAXone 1 GM Vial IM ONE (19:54)
[2023-06-02] MEDS ORDERED: Levofloxacin/Dextrose 5%-Water 500 MG in Premix Bag 1 BAG IV ONE (19:54)
[2023-06-02 20:26] LABS: BAND PERCENT MAN 4 %; EOSINOPHILS PERCENT MAN 3 % (1-3); LYMPHOCYTES PERCENT MAN 10 % (20-50); MONOCYTES PERCENT MAN 3 % (2-8); SEG NEUTROPHILS PERCENT MAN 80 % (42-75)
[2023-06-02] MEDS ORDERED: cefTRIAXone 1 GM Vial IVPUSH ONE (20:29)
[2023-06-02 21:15] LABS: APPEARANCE,URINE CLEAR (CLEAR); BILIRUBIN,URINE NEGATIVE (NEGATIVE); COLOR,URINE YELLOW (YELLOW); GLUCOSE,URINE 500 (NEGATIVE); KETONES,URINE NEGATIVE (NEGATIVE); LEUKOCYTE ESTERASE,URINE SMALL (NEGATIVE); NITRITE,URINE NEGATIVE (NEGATIVE); OCCULT BLOOD,URINE TRACE-INTACT (NEGATIVE); PROTEIN,URINE NEGATIVE (NEGATIVE); UROBILINOGEN,URINE 0.2 mg/dL (0.2-1.0)
[2023-06-02 21:25] LABS: BACTERIA,URINE FEW /HPF (0-FEW/HPF); EPITHELIAL CELLS,URINE FEW /HPF (NOT SEEN); RBC,URINE 0-5 /HPF (0-5); WBC,URINE 30-40 /HPF (0-5/HPF)
[2023-06-02] MEDS ORDERED: Ondansetron 4 MG Tab.DIS PO ONE (22:37)
[2023-06-02] MEDS ORDERED: fentaNYL 100 MCG/2 ML SDV IVPUSH ONE (22:37)
== END 2023-06-03 00:17 ==
LOC: DL.ED 19:08
DX: N13.6 Pyonephrosis (principal); D72.829 Elevated white blood cell count, unspecified; M54.9 Dorsalgia, unspecified; J44.9 Chronic obstructive pulmonary disease, unspecified; E11.9 Type 2 diabetes mellitus without complications; E03.9 Hypothyroidism, unspecified; E66.9 Obesity, unspecified; Z79.51 Long term (current) use of inhaled steroids; Z88.5 Allergy status to narcotic agent; Z88.1 Allergy status to other antibiotic agents; Z88.6 Allergy status to analgesic agent; Z86.16 Personal history of COVID-19; Z79.84 Long term (current) use of oral hypoglycemic drugs; Z79.899 Other long term (current) drug therapy; Z68.41 Body mass index [BMI] 40.0-44.9, adult
CPT/HCPCS: 36415; 74177; 80053; 81001; 83605; 85025; 87086; 96365; 96375; 96376; 99284; 99285-25; A9270-GY; J0696; J1956; J3010; J3490; Q9967

== ENCOUNTER 2023-06-18 08:59 | Emergency (ER) | payer MEDICAID, MEDICARE ==
[2023-06-18] MEDS ORDERED: Sodium Chloride 0.9% 10 ML Syringe FLUSH PRN (09:11)
[2023-06-18 09:24] LABS: HEMATOCRIT 46.6 % (37.0-47.0); HEMOGLOBIN 15.6 g/dL (12.0-16.0); MEAN CORPUSCULAR HEMOGLOBIN 29.1 pg (27.0-34.0); MEAN CORPUSCULAR HGB CONC 33.5 g/dL (33.0-35.0); MEAN CORPUSCULAR VOLUME 86.9 fL (80-100); PLATELET COUNT,PLT 304 10^3/uL (150-450); RED BLOOD CELL COUNT 5.36 10^6/uL (4.2-5.4); WHITE BLOOD CELL COUNT,WBC 17.1 10^3/uL (5.0-10.0)
[2023-06-18] MEDS ORDERED: fentaNYL 100 MCG/2 ML SDV IVPUSH ONE (09:36)
[2023-06-18] MEDS ORDERED: Ondansetron 4 MG/2 ML SDV IVPUSH ONE ×2 (09:36→11:03)
[2023-06-18 09:47] LABS: APPEARANCE,URINE SLIGHTLY CLOUDY (CLEAR); BILIRUBIN,URINE NEGATIVE (NEGATIVE); COLOR,URINE YELLOW (YELLOW); GLUCOSE,URINE 500 (NEGATIVE); KETONES,URINE NEGATIVE (NEGATIVE); LEUKOCYTE ESTERASE,URINE SMALL (NEGATIVE); NITRITE,URINE NEGATIVE (NEGATIVE); OCCULT BLOOD,URINE MODERATE (NEGATIVE); PROTEIN,URINE >=300 (NEGATIVE); UROBILINOGEN,URINE 0.2 mg/dL (0.2-1.0)
[2023-06-18 09:48] LABS: LACTIC ACID 2.1 mmol/L (0.4-2.0)
[2023-06-18 09:51] LABS: BASOPHILS PERCENT AUTO 0.8 % (0.0-1.0); EOSINOPHILS PERCENT AUTO 2.2 % (1.0-3.0); LYMPHOCYTES PERCENT AUTO 13.5 % (20.5-50.1); MONOCYTES PERCENT AUTO 4.9 % (2-8); NEUTROPHILS PERCENT AUTO 78.6 % (42.2-75.2)
[2023-06-18 09:52] LABS: LYMPHOCYTES PERCENT MAN 9 % (20-50); MONOCYTES PERCENT MAN 5 % (2-8); SEG NEUTROPHILS PERCENT MAN 86 % (42-75)
[2023-06-18 09:57] LABS: A/G RATIO 0.9; BILIRUBIN TOTAL 0.9 mg/dL (0.2-1.0); BUN/CREATININE RATIO 17.3 (No establ ref range); C-REACTIVE PROTEIN 1.1 mg/dL (0.0-0.9); CALCIUM 10.1 mg/dL (8.5-10.1); CREATININE 1.56 mg/dL (0.55-1.02); EST CRCL DRUG DOSING (CG) 29.18 mL/min; PROTEIN TOTAL,TP 8.6 g/dL (6.4-8.2)
[2023-06-18 10:12] LABS: WBC,URINE >100 /HPF (0-5/HPF)
[2023-06-18 10:13] LABS: BACTERIA,URINE FEW /HPF (0-FEW/HPF); EPITHELIAL CELLS,URINE MODERATE /HPF (NOT SEEN); HYALINE CASTS,URINE RARE; YEAST,URINE FEW /HPF (NOT SEEN)
[2023-06-18] MEDS ORDERED: Sodium Chloride 0.9% 1,000 ML IV ONE (10:51)
[2023-06-18 12:34] VITALS: BP 115/70; PULSE 58
== END 2023-06-18 11:29 | disposition home or self-care (01) ==
LOC: DL.ED 08:59
DX: N39.0 Urinary tract infection, site not specified (principal); I10 Essential (primary) hypertension; J44.9 Chronic obstructive pulmonary disease, unspecified; E11.9 Type 2 diabetes mellitus without complications; E03.9 Hypothyroidism, unspecified; E66.9 Obesity, unspecified; Z68.41 Body mass index [BMI] 40.0-44.9, adult; Z88.5 Allergy status to narcotic agent; Z88.1 Allergy status to other antibiotic agents; Z88.8 Allergy status to other drugs, medicaments and biological substances; Z79.899 Other long term (current) drug therapy; Z96.0 Presence of urogenital implants
CPT/HCPCS: 36415; 74176; 80053; 81001; 83605; 85025; 86140; 87086; 96374; 96375; 99284; J2405; J3010; J3490

== ENCOUNTER 2023-07-14 10:59 | Emergency (ER) | payer MEDICARE, MEDICAID ==
[2023-07-14] MEDS ORDERED: Sodium Chloride 0.9% 10 ML Syringe FLUSH PRN (11:33)
[2023-07-14 11:41] LABS: HEMATOCRIT 45.7 % (37.0-47.0); HEMOGLOBIN 15.5 g/dL (12.0-16.0); MEAN CORPUSCULAR HEMOGLOBIN 29.6 pg (27.0-34.0); MEAN CORPUSCULAR HGB CONC 33.9 g/dL (33.0-35.0); MEAN CORPUSCULAR VOLUME 87.2 fL (80-100); PLATELET COUNT,PLT 275 10^3/uL (150-450); RED BLOOD CELL COUNT 5.24 10^6/uL (4.2-5.4); WHITE BLOOD CELL COUNT,WBC 15.3 10^3/uL (5.0-10.0)
[2023-07-14 11:45] LABS: BASOPHILS PERCENT AUTO 1.3 % (0.0-1.0); EOSINOPHILS PERCENT AUTO 2.6 % (1.0-3.0); LYMPHOCYTES PERCENT AUTO 14.2 % (20.5-50.1); MONOCYTES PERCENT AUTO 6.4 % (2-8); NEUTROPHILS PERCENT AUTO 75.5 % (42.2-75.2)
[2023-07-14 11:47] VITALS: BP 116/85; PULSE 72
[2023-07-14 11:59] LABS: BASOPHILS PERCENT MAN 1; EOSINOPHILS PERCENT MAN 3 % (1-3); LYMPHOCYTES PERCENT MAN 12 % (20-50); MONOCYTES PERCENT MAN 11 % (2-8); SEG NEUTROPHILS PERCENT MAN 73 % (42-75)
[2023-07-14 12:09] LABS: A/G RATIO 0.9; ANION GAP 15.1 mEq/L (7-13); BILIRUBIN TOTAL 0.6 mg/dL (0.2-1.0); C-REACTIVE PROTEIN 0.2 mg/dL (0.0-0.9); CALCIUM 10.1 mg/dL (8.5-10.1); CREATININE 1.36 mg/dL (0.55-1.02); EST CRCL DRUG DOSING (CG) 32.29 mL/min; MAGNESIUM 1.9 mg/dL (1.8-2.4); POTASSIUM,K 4.1 mmol/L (3.5-5.1); PROTEIN TOTAL,TP 8.3 g/dL (6.4-8.2)
[2023-07-14 12:10] LABS: LACTIC ACID 1.2 mmol/L (0.4-2.0)
[2023-07-14 12:15] LABS: INR 0.9 (0.9-1.2); PROTHROMBIN TIME 9.4 SEC (9.0-12.0); PTT,PARTIAL THROMBOPLSTIN TIME 25.7 SEC (22.0-34.0)
[2023-07-14] MEDS ORDERED: Iopamidol 612 MG/ML 100 ML Bottle IVPUSH ONE (12:20)
[2023-07-14 12:49] LABS: APPEARANCE,URINE CLOUDY (CLEAR); BILIRUBIN,URINE NEGATIVE (NEGATIVE); COLOR,URINE DARK YELLOW (YELLOW); GLUCOSE,URINE >=1000 (NEGATIVE); KETONES,URINE NEGATIVE (NEGATIVE); LEUKOCYTE ESTERASE,URINE SMALL (NEGATIVE); NITRITE,URINE NEGATIVE (NEGATIVE); OCCULT BLOOD,URINE MODERATE (NEGATIVE); PROTEIN,URINE 100 (NEGATIVE); UROBILINOGEN,URINE 0.2 mg/dL (0.2-1.0)
[2023-07-14 12:51] LABS: MDMA (ECSTASY), URINE NEGATIVE (NEGATIVE); METHADONE,URINE NEGATIVE (NEGATIVE); METHAMPHETAMINES,URINE NEGATIVE (NEGATIVE)
[2023-07-14 12:52] LABS: AMPHETAMINES,URINE NEGATIVE (NEGATIVE); BARBITURATES,URINE NEGATIVE (NEGATIVE); BENZODIAZEPINE,URINE NEGATIVE (NEGATIVE); OPIATES,URINE NEGATIVE (NEGATIVE); OXYCODONE,URINE NEGATIVE (NEGATIVE); PHENCYCLIDINE,URINE NEGATIVE (NEGATIVE); TCA,URINE NEGATIVE (NEGATIVE)
[2023-07-14 12:59] LABS: WBC,URINE SEMI-PACKED /HPF (0-5/HPF)
[2023-07-14 13:00] LABS: AMORPHOUS SEDIMENT,URINE MODERATE /HPF (NOT SEEN); BACTERIA,URINE MODERATE /HPF (0-FEW/HPF); EPITHELIAL CELLS,URINE MODERATE /HPF (NOT SEEN); MUCUS,URINE FEW /LPF (NOT SEEN)
[2023-07-14] MEDS ORDERED: Lactulose Soln 10 GM/15 ML 30 ML UD Cup PO ONE (13:59)
== END 2023-07-14 14:15 | disposition home or self-care (01) ==
LOC: DL.ED 10:59
DX: K59.00 Constipation, unspecified (principal); N39.0 Urinary tract infection, site not specified; R91.1 Solitary pulmonary nodule; J44.9 Chronic obstructive pulmonary disease, unspecified; E03.9 Hypothyroidism, unspecified; E11.9 Type 2 diabetes mellitus without complications; I10 Essential (primary) hypertension; E66.9 Obesity, unspecified; Z68.41 Body mass index [BMI] 40.0-44.9, adult; Z88.2 Allergy status to sulfonamides; Z88.1 Allergy status to other antibiotic agents; Z88.5 Allergy status to narcotic agent; Z88.8 Allergy status to other drugs, medicaments and biological substances; Z88.6 Allergy status to analgesic agent; Z79.899 Other long term (current) drug therapy; Z79.84 Long term (current) use of oral hypoglycemic drugs; Z86.16 Personal history of COVID-19
CPT/HCPCS: 36415; 74177; 80053; 80305; 81001; 82150; 83605; 83690; 83735; 84145; 84484; 85025; 85610; 85730; 86140; 87086; 93005; 93010; 99284; A9270; Q9967; J3490

== ENCOUNTER 2023-07-31 11:00 | Emergency (ER) | payer MEDICARE, MEDICAID ==
[2023-07-31 10:38] VITALS: BP 131/82; PULSE 69
== END 2023-07-31 11:48 | disposition home or self-care (01) ==
LOC: DL.ED 11:00
DX: M25.561 Pain in right knee (principal); R07.81 Pleurodynia; I10 Essential (primary) hypertension; J44.9 Chronic obstructive pulmonary disease, unspecified; E03.9 Hypothyroidism, unspecified; E11.9 Type 2 diabetes mellitus without complications; E66.9 Obesity, unspecified; Z68.41 Body mass index [BMI] 40.0-44.9, adult; Z88.2 Allergy status to sulfonamides; Z88.5 Allergy status to narcotic agent; Z88.6 Allergy status to analgesic agent; Z79.84 Long term (current) use of oral hypoglycemic drugs; Z79.899 Other long term (current) drug therapy
CPT/HCPCS: 71101-RT; 73562-RT; 82947; 99284

== ENCOUNTER 2024-01-14 15:14 | Emergency (ER) | payer MEDICARE, MEDICAID ==
[2024-01-14] MEDS: Sodium Chloride 0.9% 10 ML Syringe FLUSH PRN (16:46)
[2024-01-14 16:52] LABS: HEMATOCRIT 42.6 % (37.0-47.0); MEAN CORPUSCULAR HEMOGLOBIN 29.5 pg (27.0-34.0); MEAN CORPUSCULAR HGB CONC 32.9 g/dL (33.0-35.0); MEAN CORPUSCULAR VOLUME 89.7 fL (80-100); PLATELET COUNT,PLT 260 10^3/uL (150-450); RED BLOOD CELL COUNT 4.75 10^6/uL (4.2-5.4); WHITE BLOOD CELL COUNT,WBC 40.5 10^3/uL (5.0-10.0)
[2024-01-14 17:03] LABS: A/G RATIO 0.9; ALANINE AMINOTRANSFERASE,ALT 21 U/L (14-59); ALKALINE PHOSPHATASE 101 U/L (46-116); ANION GAP 11.9 mEq/L (7-13); ASPARTATE AMNIOTRANSFERASE,AST 12 U/L (15-37); BILIRUBIN TOTAL 0.6 mg/dL (0.2-1.0); BLOOD UREA NITROGEN,BUN 29 mg/dL (7-18); BUN/CREATININE RATIO 18.8 (No establ ref range); CARBON DIOXIDE,CO2 30 mmol/L (21-32); CHLORIDE,CL 94 mmol/L (98-107); CREATININE 1.54 mg/dL (0.55-1.02); ESTIMATED GFR 36 mL/min (>=60); GLUCOSE RANDOM 129 mg/dL (70-99); POTASSIUM,K 3.9 mmol/L (3.5-5.1); PROTEIN TOTAL,TP 8.6 g/dL (6.4-8.2); SODIUM,NA 132 mmol/L (136-145)
[2024-01-14] MEDS: Iopamidol 612 MG/ML 100 ML Bottle IARTIC ONE (17:05)
[2024-01-14 17:13] LABS: BAND PERCENT MAN 3 %; LYMPHOCYTES PERCENT MAN 9 % (20-50); MONOCYTES PERCENT MAN 6 % (2-8); SEG NEUTROPHILS PERCENT MAN 80 % (42-75)
[2024-01-14 17:14] LABS: EOSINOPHILS PERCENT MAN 2 % (1-3)
[2024-01-14 18:07] VITALS: BP 125/99; PULSE 94
== END 2024-01-14 18:06 | disposition home or self-care (01) ==
LOC: DL.ED 15:14
DX: K59.00 Constipation, unspecified (principal); I12.9 Hypertensive chronic kidney disease with stage 1 through stage 4 chronic kidney disease, or unspecified chronic kidney disease; N18.30 Chronic kidney disease, stage 3 unspecified; J44.9 Chronic obstructive pulmonary disease, unspecified; E11.22 Type 2 diabetes mellitus with diabetic chronic kidney disease; E03.9 Hypothyroidism, unspecified; Z86.16 Personal history of COVID-19; Z90.49 Acquired absence of other specified parts of digestive tract; Z90.710 Acquired absence of both cervix and uterus; Z79.84 Long term (current) use of oral hypoglycemic drugs; Z79.899 Other long term (current) drug therapy; Z88.2 Allergy status to sulfonamides; Z88.8 Allergy status to other drugs, medicaments and biological substances; Z88.5 Allergy status to narcotic agent
CPT/HCPCS: 36415; 74177; 80053; 85025; 99284; Q9967; J3490

== ENCOUNTER 2024-02-15 11:23 | Emergency (ER) | payer MEDICARE, MEDICAID ==
[2024-02-15 12:30] LABS: BASOPHILS PERCENT AUTO 0.3 % (0.0-1.0); EOSINOPHILS PERCENT AUTO 1.3 % (1.0-3.0); HEMATOCRIT 41.4 % (37.0-47.0); HEMOGLOBIN 13.4 g/dL (12.0-16.0); MEAN CORPUSCULAR HEMOGLOBIN 29.7 pg (27.0-34.0); MEAN CORPUSCULAR HGB CONC 32.4 g/dL (33.0-35.0); MEAN CORPUSCULAR VOLUME 91.8 fL (80-100); MONOCYTES PERCENT AUTO 8.6 % (2-8); NEUTROPHILS PERCENT AUTO 79.8 % (42.2-75.2); PLATELET COUNT,PLT 296 10^3/uL (150-450); RED BLOOD CELL COUNT 4.51 10^6/uL (4.2-5.4); WHITE BLOOD CELL COUNT,WBC 10.5 10^3/uL (5.0-10.0)
[2024-02-15 12:35] LABS: A/G RATIO 0.8; ALBUMIN 3.5 g/dL (3.4-5.0); ANION GAP 15.9 mEq/L (7-13); BILIRUBIN TOTAL 0.6 mg/dL (0.2-1.0); BUN/CREATININE RATIO 15.4 (No establ ref range); CALCIUM 9.3 mg/dL (8.5-10.1); CREATININE 1.43 mg/dL (0.55-1.02); EST CRCL DRUG DOSING (CG) 30.71 mL/min; POTASSIUM,K 3.9 mmol/L (3.5-5.1); PROTEIN TOTAL,TP 7.8 g/dL (6.4-8.2)
[2024-02-15 12:38] LABS: CORONAVIRUS COVID-19 NAA NEGATIVE (NEGATIVE); INFLUENZA A NAA NEGATIVE (NEGATIVE); INFLUENZA B NAA NEGATIVE (NEGATIVE); RESPIRATORY SYNCYTIAL VIR NAA NEGATIVE (NEGATIVE)
[2024-02-15 13:00] VITALS: BP 157/126; PULSE 68
[2024-02-15] MEDS: Lactated Ringers 1,000 ML IV ONE (13:11)
[2024-02-15 13:17] LABS: APPEARANCE,URINE CLEAR (CLEAR); BILIRUBIN,URINE NEGATIVE (NEGATIVE); COLOR,URINE YELLOW (YELLOW); GLUCOSE,URINE 500 (NEGATIVE); KETONES,URINE NEGATIVE (NEGATIVE); LEUKOCYTE ESTERASE,URINE NEGATIVE (NEGATIVE); NITRITE,URINE NEGATIVE (NEGATIVE); OCCULT BLOOD,URINE TRACE-INTACT (NEGATIVE); PROTEIN,URINE NEGATIVE (NEGATIVE); UROBILINOGEN,URINE 0.2 mg/dL (0.2-1.0)
[2024-02-15 13:44] LABS: EPITHELIAL CELLS,URINE MODERATE /HPF (NOT SEEN); RBC,URINE 0-5 /HPF (0-5)
[2024-02-15 13:45] LABS: AMORPHOUS SEDIMENT,URINE OCCASIONAL /HPF (NOT SEEN); BACTERIA,URINE FEW /HPF (0-FEW/HPF)
== END 2024-02-15 15:15 | disposition home or self-care (01) ==
LOC: DL.ED 11:23
DX: J06.9 Acute upper respiratory infection, unspecified (principal); I10 Essential (primary) hypertension; J44.9 Chronic obstructive pulmonary disease, unspecified; E11.40 Type 2 diabetes mellitus with diabetic neuropathy, unspecified; E03.9 Hypothyroidism, unspecified; E66.9 Obesity, unspecified; Z88.5 Allergy status to narcotic agent; Z88.2 Allergy status to sulfonamides; Z88.8 Allergy status to other drugs, medicaments and biological substances; Z88.6 Allergy status to analgesic agent; Z86.19 Personal history of other infectious and parasitic diseases; Z79.51 Long term (current) use of inhaled steroids; Z79.84 Long term (current) use of oral hypoglycemic drugs; Z79.899 Other long term (current) drug therapy; Z90.49 Acquired absence of other specified parts of digestive tract; Z68.42 Body mass index [BMI] 45.0-49.9, adult
CPT/HCPCS: 0241U; 36415; 71046; 80053; 81001; 85025; 93005; 96360; 99285; J7120; 93010; 99284

== ENCOUNTER 2024-07-26 16:45 | Observation (INO) | payer MEDICARE, MEDICAID ==
[2024-07-26 17:04] LABS: APPEARANCE,URINE SLIGHTLY CLOUDY (CLEAR); BILIRUBIN,URINE NEGATIVE (NEGATIVE); COLOR,URINE YELLOW (YELLOW); GLUCOSE,URINE 500 (NEGATIVE); KETONES,URINE NEGATIVE (NEGATIVE); LEUKOCYTE ESTERASE,URINE NEGATIVE (NEGATIVE); NITRITE,URINE NEGATIVE (NEGATIVE); OCCULT BLOOD,URINE TRACE-INTACT (NEGATIVE); PROTEIN,URINE 30 (NEGATIVE); UROBILINOGEN,URINE 0.2 mg/dL (0.2-1.0)
[2024-07-26] MEDS ORDERED: Sodium Chloride 0.9% 10 ML Syringe FLUSH PRN (17:23)
[2024-07-26 17:41] LABS: BACTERIA,URINE FEW /HPF (0-FEW/HPF); MUCUS,URINE FEW /LPF (NOT SEEN); WBC,URINE 75-100 /HPF (0-5/HPF)
[2024-07-26 17:42] LABS: EPITHELIAL CELLS,URINE MODERATE /HPF (NOT SEEN)
[2024-07-26 17:52] LABS: A/G RATIO 0.9; ALBUMIN 4.1 g/dL (3.4-5.0); ANION GAP 13.6 mEq/L (7-13); BILIRUBIN TOTAL 0.6 mg/dL (0.2-1.0); BUN/CREATININE RATIO 12.4 (No establ ref range); CREATININE 1.94 mg/dL (0.55-1.02); EST CRCL DRUG DOSING (CG) 22.32 mL/min; POTASSIUM,K 2.6 mmol/L (3.5-5.1); PROTEIN TOTAL,TP 8.6 g/dL (6.4-8.2)
[2024-07-26] MEDS: Potassium Chloride 10 MEQ Tab.ER PO ONE ×2 (18:35→21:00)
[2024-07-26] MEDS: NS with KCl 40mEq 1,000 ML IV SCH (18:37)
[2024-07-26] MEDS ORDERED: Ondansetron 4 MG/2 ML SDV IVPUSH PRN (18:41)
[2024-07-26] MEDS ORDERED: oxyCODONE 5 MG Tab PO PRN (18:41)
[2024-07-26] MEDS ORDERED: Docusate Sodium 100 MG Cap PO PRN (18:41)
[2024-07-26] MEDS: Pantoprazole 40 MG Vial IVPUSH SCH (21:00)
[2024-07-26 23:25] LABS: ANION GAP 13.1 mEq/L (7-13); POTASSIUM,K 3.1 mmol/L (3.5-5.1)
[2024-07-26] MEDS: Sodium Chloride 0.9% 1,000 ML IV SCH (23:45)
[2024-07-26] MEDS: Potassium Chloride 10 MEQ Tab.ER PO STA (23:45)
[2024-07-27 06:46] LABS: ANION GAP 10.2 mEq/L (7-13); CALCIUM 8.6 mg/dL (8.5-10.1); CREATININE 1.41 mg/dL (0.55-1.02); EST CRCL DRUG DOSING (CG) 30.71 mL/min; MAGNESIUM 1.8 mg/dL (1.8-2.4); POTASSIUM,K 3.2 mmol/L (3.5-5.1)
[2024-07-27] MEDS: Potassium Chloride 10 MEQ Tab.ER PO ONE (10:15)
[2024-07-27 12:09] VITALS: BP 105/66; PULSE 63
== END 2024-07-27 14:42 | disposition home or self-care (01) ==
LOC: DL.ED 16:45 → DL.MS 18:14
PROVIDERS: ADMIT Internal Medicine; ATTEND Internal Medicine
DX: E87.6 Hypokalemia (principal); N17.9 Acute kidney failure, unspecified; I10 Essential (primary) hypertension; E11.9 Type 2 diabetes mellitus without complications; E78.5 Hyperlipidemia, unspecified; I25.10 Atherosclerotic heart disease of native coronary artery without angina pectoris; C91.10 Chronic lymphocytic leukemia of B-cell type not having achieved remission; J44.9 Chronic obstructive pulmonary disease, unspecified; Z79.84 Long term (current) use of oral hypoglycemic drugs; Z79.899 Other long term (current) drug therapy; R10.9 Unspecified abdominal pain; N26.1 Atrophy of kidney (terminal); N28.89 Other specified disorders of kidney and ureter
CPT/HCPCS: 36415; 74177; 80048; 80051; 80053; 81001; 83735; 93005; 93010; 96361; 96365; 96366; 96374; 96375; 96376; 99222; 99239; 99284; 99285-25; A9270-GY; G0378; J2470; J3480; J7030; Q9967

== ENCOUNTER 2024-11-03 09:27 | Emergency (ER) | payer MEDICARE, MEDICAID ==
[2024-11-03 09:47] LABS: BASOPHILS PERCENT AUTO 0.2 % (0.0-1.0); EOSINOPHILS PERCENT AUTO 6.5 % (1.0-3.0); HEMATOCRIT 40.4 % (37.0-47.0); HEMOGLOBIN 13.4 g/dL (12.0-16.0); LYMPHOCYTES PERCENT AUTO 21.1 % (20.5-50.1); MEAN CORPUSCULAR HEMOGLOBIN 31.5 pg (27.0-34.0); MEAN CORPUSCULAR HGB CONC 33.2 g/dL (33.0-35.0); MEAN CORPUSCULAR VOLUME 95.1 fL (80-100); MONOCYTES PERCENT AUTO 8.5 % (2-8); NEUTROPHILS PERCENT AUTO 63.7 % (42.2-75.2); PLATELET COUNT,PLT 302 10^3/uL (150-450); RED BLOOD CELL COUNT 4.25 10^6/uL (4.2-5.4); WHITE BLOOD CELL COUNT,WBC 9.1 10^3/uL (5.0-10.0)
[2024-11-03 10:11] LABS: A/G RATIO 0.86; ALANINE AMINOTRANSFERASE,ALT 30 U/L (14-59); ALBUMIN 3.1 g/dL (3.4-5.0); ALKALINE PHOSPHATASE 86 U/L (46-116); ANION GAP 14.8 mEq/L (7-13); ASPARTATE AMNIOTRANSFERASE,AST 15 U/L (15-37); BILIRUBIN TOTAL 0.4 mg/dL (0.2-1.0); BLOOD UREA NITROGEN,BUN 21 mg/dL (7-18); BUN/CREATININE RATIO 17.5 (No establ ref range); CALCIUM 8.8 mg/dL (8.5-10.1); CARBON DIOXIDE,CO2 26 mmol/L (21-32); CHLORIDE,CL 105 mmol/L (98-107); ESTIMATED GFR 49 mL/min (>=60); GLUCOSE RANDOM 146 mg/dL (70-99); MAGNESIUM 1.8 mg/dL (1.8-2.4); POTASSIUM,K 3.8 mmol/L (3.5-5.1); PROTEIN TOTAL,TP 6.7 g/dL (6.4-8.2); SODIUM,NA 142 mmol/L (136-145)
[2024-11-03] MEDS: methylPREDNISolone Sodium Succinate 125 MG/2 ML SDV IVPUSH ONE (10:29)
[2024-11-03] MEDS: Albuterol/Ipratropium 3.0-0.5 MG/3 ML Neb Soln NEB ONE (10:33)
[2024-11-03 11:03] VITALS: BP 120/71; PULSE 62
== END 2024-11-03 11:02 | disposition home or self-care (01) ==
LOC: DL.ED 09:27
DX: J06.9 Acute upper respiratory infection, unspecified (principal); B97.89 Other viral agents as the cause of diseases classified elsewhere; H10.9 Unspecified conjunctivitis; I12.9 Hypertensive chronic kidney disease with stage 1 through stage 4 chronic kidney disease, or unspecified chronic kidney disease; N18.9 Chronic kidney disease, unspecified; J44.9 Chronic obstructive pulmonary disease, unspecified; E11.22 Type 2 diabetes mellitus with diabetic chronic kidney disease; E66.9 Obesity, unspecified; E03.9 Hypothyroidism, unspecified; Z90.49 Acquired absence of other specified parts of digestive tract; Z86.16 Personal history of COVID-19; Z79.899 Other long term (current) drug therapy; Z79.51 Long term (current) use of inhaled steroids; Z79.84 Long term (current) use of oral hypoglycemic drugs; Z79.890 Hormone replacement therapy; Z88.5 Allergy status to narcotic agent; Z88.6 Allergy status to analgesic agent; Z88.2 Allergy status to sulfonamides
CPT/HCPCS: 36415; 71046; 80053; 82947; 83735; 84484; 85025; 87428-QW; 93005; 96374; 99285-25; J2919; J7620-GY

== ENCOUNTER 2025-01-22 14:06 | Emergency (ER) | payer MEDICARE, MEDICAID ==
[2025-01-22] MEDS ORDERED: Sodium Chloride 0.9% 10 ML Syringe FLUSH PRN ×2 (14:33)
[2025-01-22 14:42] LABS: BASOPHILS PERCENT AUTO 0.4 % (0.0-1.0); HEMATOCRIT 38.1 % (37.0-47.0); LYMPHOCYTES PERCENT AUTO 15.4 % (20.5-50.1); MEAN CORPUSCULAR HEMOGLOBIN 30.3 pg (27.0-34.0); MEAN CORPUSCULAR HGB CONC 34.1 g/dL (33.0-35.0); MEAN CORPUSCULAR VOLUME 88.8 fL (80-100); MONOCYTES PERCENT AUTO 10.3 % (2-8); NEUTROPHILS PERCENT AUTO 69.9 % (42.2-75.2); PLATELET COUNT,PLT 289 10^3/uL (150-450); RED BLOOD CELL COUNT 4.29 10^6/uL (4.2-5.4); WHITE BLOOD CELL COUNT,WBC 11.3 10^3/uL (5.0-10.0)
[2025-01-22 14:58] LABS: INR 0.9 (0.9-1.2); PROTHROMBIN TIME 9.7 SEC (9.0-12.0)
[2025-01-22 15:05] LABS: A/G RATIO 0.9; ALANINE AMINOTRANSFERASE,ALT 24 U/L (14-59); ALBUMIN 3.4 g/dL (3.4-5.0); ALKALINE PHOSPHATASE 106 U/L (46-116); ANION GAP 13.9 mEq/L (7-13); ASPARTATE AMNIOTRANSFERASE,AST 11 U/L (15-37); BILIRUBIN TOTAL 0.9 mg/dL (0.2-1.0); BLOOD UREA NITROGEN,BUN 16 mg/dL (7-18); CALCIUM 9.7 mg/dL (8.5-10.1); CARBON DIOXIDE,CO2 26 mmol/L (21-32); CHLORIDE,CL 100 mmol/L (98-107); CREATININE 1.33 mg/dL (0.55-1.02); GLUCOSE RANDOM 228 mg/dL (70-99); POTASSIUM,K 2.9 mmol/L (3.5-5.1); PROTEIN TOTAL,TP 7.3 g/dL (6.4-8.2); SODIUM,NA 137 mmol/L (136-145)
[2025-01-22 15:11] LABS: ESTIMATED GFR 43 mL/min (>=60)
[2025-01-22 17:00] VITALS: BP 133/75; PULSE 65
[2025-01-22] MEDS: Potassium Chloride 10 MEQ Tab.ER PO ONE (17:12)
[2025-01-22] MEDS: Take Home: Acetaminophen/oxyCODONE 325-5 MG, 5 Tab Pack PO ONE (17:13)
== END 2025-01-22 17:23 | disposition home or self-care (01) ==
LOC: DL.ED 14:06
DX: S22.32XA Fracture of one rib, left side, initial encounter for closed fracture (principal); S20.211A Contusion of right front wall of thorax, initial encounter; I10 Essential (primary) hypertension; E11.9 Type 2 diabetes mellitus without complications; E03.9 Hypothyroidism, unspecified; E66.9 Obesity, unspecified; W19.XXXA Unspecified fall, initial encounter; Y99.9 Unspecified external cause status; Y92.9 Unspecified place or not applicable; Y93.89 Activity, other specified; Z88.8 Allergy status to other drugs, medicaments and biological substances; Z88.6 Allergy status to analgesic agent; Z86.16 Personal history of COVID-19; Z90.49 Acquired absence of other specified parts of digestive tract
CPT/HCPCS: 36415; 71045; 80053; 84484; 85025; 85610; 93005; 99285; A9270; 93010; 99284

== ENCOUNTER 2025-03-16 12:26 | Emergency (ER) | payer MEDICARE, MEDICAID ==
[2025-03-16 12:44] VITALS: BP 123/64; PULSE 76
[2025-03-16] MEDS: Dexamethasone 4 MG/ML SDV IM ONE (12:50)
== END 2025-03-16 12:57 | disposition home or self-care (01) ==
LOC: DL.ED 12:26
DX: M54.32 Sciatica, left side (principal); I10 Essential (primary) hypertension; E03.9 Hypothyroidism, unspecified; E66.9 Obesity, unspecified; E11.9 Type 2 diabetes mellitus without complications; Z88.6 Allergy status to analgesic agent; Z88.8 Allergy status to other drugs, medicaments and biological substances; Z79.890 Hormone replacement therapy; Z79.899 Other long term (current) drug therapy; Z79.84 Long term (current) use of oral hypoglycemic drugs; Z86.16 Personal history of COVID-19; Z90.49 Acquired absence of other specified parts of digestive tract
CPT/HCPCS: 96372; 99283; J1100

== ENCOUNTER 2025-03-22 08:25 | Emergency (ER) | payer MEDICARE, MEDICAID ==
[2025-03-22] MEDS: Lidocaine 5% 700 MG Patch TOP ONE (08:42)
[2025-03-22 08:51] LABS: HEMATOCRIT 40.3 % (37.0-47.0); MEAN CORPUSCULAR HEMOGLOBIN 30.6 pg (27.0-34.0); MEAN CORPUSCULAR HGB CONC 34.7 g/dL (33.0-35.0); PLATELET COUNT,PLT 358 10^3/uL (150-450); RED BLOOD CELL COUNT 4.58 10^6/uL (4.2-5.4); WHITE BLOOD CELL COUNT,WBC 14.6 10^3/uL (5.0-10.0)
[2025-03-22 09:08] LABS: ANION GAP 16.4 mEq/L (7-13); CALCIUM 8.9 mg/dL (8.5-10.1); CREATININE 1.27 mg/dL (0.55-1.02); EST CRCL DRUG DOSING (CG) 34.1 mL/min; POTASSIUM,K 3.4 mmol/L (3.5-5.1)
[2025-03-22 09:11] LABS: BASOPHILS PERCENT AUTO 0.1 % (0.0-1.0); EOSINOPHILS PERCENT AUTO 0.3 % (1.0-3.0); LYMPHOCYTES PERCENT AUTO 20.5 % (20.5-50.1); MONOCYTES PERCENT AUTO 10.8 % (2-8); NEUTROPHILS PERCENT AUTO 68.3 % (42.2-75.2)
[2025-03-22 09:39] LABS: LYMPHOCYTES PERCENT MAN 23 % (20-50); SEG NEUTROPHILS PERCENT MAN 70 % (42-75)
[2025-03-22 09:40] LABS: MONOCYTES PERCENT MAN 7 % (2-8)
[2025-03-22] MEDS: Potassium Chloride 10 MEQ Tab.ER PO ONE (09:52)
[2025-03-22] MEDS: Ketorolac 30 MG/ML SDV IM ONE (09:53)
[2025-03-22] MEDS: Magnesium Oxide 400 MG Tab PO ONE (09:53)
[2025-03-22] MEDS: Dexamethasone 6 MG TABLET PO ONE (09:55)
[2025-03-22 10:03] VITALS: BP 158/89; PULSE 61
== END 2025-03-22 10:10 | disposition home or self-care (01) ==
LOC: DL.ED 08:25
DX: M79.605 Pain in left leg (principal); I10 Essential (primary) hypertension; E11.9 Type 2 diabetes mellitus without complications; E66.9 Obesity, unspecified; E03.9 Hypothyroidism, unspecified; J44.9 Chronic obstructive pulmonary disease, unspecified; Z88.8 Allergy status to other drugs, medicaments and biological substances; Z88.2 Allergy status to sulfonamides; Z88.5 Allergy status to narcotic agent; Z79.899 Other long term (current) drug therapy; Z79.51 Long term (current) use of inhaled steroids; Z79.84 Long term (current) use of oral hypoglycemic drugs; Z79.890 Hormone replacement therapy; Z86.16 Personal history of COVID-19; Z90.49 Acquired absence of other specified parts of digestive tract; Z68.41 Body mass index [BMI] 40.0-44.9, adult; X58.XXXA Exposure to other specified factors, initial encounter
CPT/HCPCS: 36415; 80048; 85025; 96372; 99283; A9270; J1885; J8540

== ENCOUNTER 2025-03-24 05:45 | Emergency (ER) | payer MEDICARE, MEDICAID ==
[2025-03-24] MEDS: HYDROmorphone 0.5 MG/0.5 ML Syringe IVPUSH ONE (06:16)
[2025-03-24 06:17] LABS: HEMOGLOBIN 13.9 g/dL (12.0-16.0); MEAN CORPUSCULAR HEMOGLOBIN 30.3 pg (27.0-34.0); MEAN CORPUSCULAR HGB CONC 33.9 g/dL (33.0-35.0); MEAN CORPUSCULAR VOLUME 89.3 fL (80-100); PLATELET COUNT,PLT 312 10^3/uL (150-450); RED BLOOD CELL COUNT 4.59 10^6/uL (4.2-5.4); WHITE BLOOD CELL COUNT,WBC 13.1 10^3/uL (5.0-10.0)
[2025-03-24 06:19] LABS: BASOPHILS PERCENT AUTO 0.1 % (0.0-1.0); EOSINOPHILS PERCENT AUTO 1.1 % (1.0-3.0); LYMPHOCYTES PERCENT AUTO 21.7 % (20.5-50.1); MONOCYTES PERCENT AUTO 9.6 % (2-8); NEUTROPHILS PERCENT AUTO 67.5 % (42.2-75.2)
[2025-03-24 06:38] LABS: EOSINOPHILS PERCENT MAN 1 % (1-3); LYMPHOCYTES PERCENT MAN 17 % (20-50); MONOCYTES PERCENT MAN 9 % (2-8); SEG NEUTROPHILS PERCENT MAN 73 % (42-75)
[2025-03-24] MEDS: Sodium Chloride 0.9% 1,000 ML IV ONE (06:39)
[2025-03-24 06:40] VITALS: BP 139/66; PULSE 58
[2025-03-24 06:43] LABS: APPEARANCE,URINE CLOUDY (CLEAR); BILIRUBIN,URINE NEGATIVE (NEGATIVE); COLOR,URINE YELLOW (YELLOW); GLUCOSE,URINE 500 (NEGATIVE); KETONES,URINE NEGATIVE (NEGATIVE); LEUKOCYTE ESTERASE,URINE TRACE (NEGATIVE); NITRITE,URINE NEGATIVE (NEGATIVE); OCCULT BLOOD,URINE MODERATE (NEGATIVE); PROTEIN,URINE 100 (NEGATIVE); UROBILINOGEN,URINE 0.2 mg/dL (0.2-1.0)
[2025-03-24 06:43] LABS: ALANINE AMINOTRANSFERASE,ALT 21 U/L (14-59); ALBUMIN 3.5 g/dL (3.4-5.0); ALKALINE PHOSPHATASE 69 U/L (46-116); ANION GAP 15.8 mEq/L (7-13); ASPARTATE AMNIOTRANSFERASE,AST 12 U/L (15-37); BILIRUBIN TOTAL 0.7 mg/dL (0.2-1.0); BLOOD UREA NITROGEN,BUN 39 mg/dL (7-18); BUN/CREATININE RATIO 29.3 (No establ ref range); CALCIUM 9.1 mg/dL (8.5-10.1); CARBON DIOXIDE,CO2 25 mmol/L (21-32); CHLORIDE,CL 101 mmol/L (98-107); CREATININE 1.33 mg/dL (0.55-1.02); GLUCOSE RANDOM 160 mg/dL (70-99); LIPASE 118 U/L (16-77); MAGNESIUM 2.1 mg/dL (1.8-2.4); POTASSIUM,K 3.8 mmol/L (3.5-5.1); PROTEIN TOTAL,TP 6.9 g/dL (6.4-8.2); SODIUM,NA 138 mmol/L (136-145)
[2025-03-24 06:46] LABS: ESTIMATED GFR 43 mL/min (>=60)
[2025-03-24 06:48] LABS: LACTIC ACID 2.5 mmol/L (0.4-2.0)
[2025-03-24 06:54] LABS: BARBITURATES,URINE NEGATIVE (NEGATIVE); MDMA (ECSTASY), URINE NEGATIVE (NEGATIVE); METHADONE,URINE NEGATIVE (NEGATIVE); METHAMPHETAMINES,URINE NEGATIVE (NEGATIVE); OPIATES,URINE NEGATIVE (NEGATIVE); TCA,URINE NEGATIVE (NEGATIVE)
[2025-03-24 06:55] LABS: AMORPHOUS SEDIMENT,URINE FEW /HPF (NOT SEEN); AMPHETAMINES,URINE NEGATIVE (NEGATIVE); BACTERIA,URINE MODERATE /HPF (0-FEW/HPF); BENZODIAZEPINE,URINE NEGATIVE (NEGATIVE); EPITHELIAL CELLS,URINE MODERATE /HPF (NOT SEEN); MUCUS,URINE FEW /LPF (NOT SEEN); OXYCODONE,URINE NEGATIVE (NEGATIVE); PHENCYCLIDINE,URINE NEGATIVE (NEGATIVE); WBC,URINE >100 /HPF (0-5/HPF)
[2025-03-24 06:56] LABS: YEAST,URINE FEW /HPF (NOT SEEN)
== END 2025-03-24 07:38 | disposition home or self-care (01) ==
LOC: DL.ED 05:45
DX: S83.92XA Sprain of unspecified site of left knee, initial encounter (principal); S73.102A Unspecified sprain of left hip, initial encounter; E86.0 Dehydration; S43.402A Unspecified sprain of left shoulder joint, initial encounter; I10 Essential (primary) hypertension; J44.9 Chronic obstructive pulmonary disease, unspecified; N39.0 Urinary tract infection, site not specified; E11.9 Type 2 diabetes mellitus without complications; E03.9 Hypothyroidism, unspecified; Z86.16 Personal history of COVID-19; Z88.5 Allergy status to narcotic agent; Z88.2 Allergy status to sulfonamides; Z88.8 Allergy status to other drugs, medicaments and biological substances; Z79.51 Long term (current) use of inhaled steroids; Z79.82 Long term (current) use of aspirin; Z79.85 Long-term (current) use of injectable non-insulin antidiabetic drugs; Z79.84 Long term (current) use of oral hypoglycemic drugs; Z79.890 Hormone replacement therapy; W18.39XA Other fall on same level, initial encounter; Y93.89 Activity, other specified
CPT/HCPCS: 36415; 71045; 73030; 73552; 73562; 80053; 80305; 80307; 81001; 83605; 83690; 83735; 84484; 85025; 87086; 87088; 87186; 93005; 93010; 96361; 96372; 96374; 99283; 99284; 99285; J1100; J7030

== ENCOUNTER 2025-03-24 14:23 | Emergency (ER) | payer MEDICARE, MEDICAID ==
[2025-03-24 14:40] VITALS: BP 140/76; PULSE 67
[2025-03-24] MEDS: Dexamethasone 4 MG/ML SDV IM ONE (15:36)
== END 2025-03-24 16:00 | disposition home or self-care (01) ==
LOC: DL.ED 14:23
DX: M54.32 Sciatica, left side (principal); I10 Essential (primary) hypertension; E11.9 Type 2 diabetes mellitus without complications; E03.9 Hypothyroidism, unspecified; E66.9 Obesity, unspecified; Z88.8 Allergy status to other drugs, medicaments and biological substances; Z79.890 Hormone replacement therapy; Z79.899 Other long term (current) drug therapy; Z86.16 Personal history of COVID-19
CPT/HCPCS: 96372; 99283; J1100